=== PATIENT | female | born 1995 | race Asian ===

== ENCOUNTER → 2022-12-08 14:25 | Outpatient (BNVA) | payer OTHER, SELFPAY | PROVIDERS: Visit Provider Physician Assistant Surgical ==

== ENCOUNTER 2023-01-09 08:14 | Outpatient (REF) | payer OTHER, SELFPAY ==
--- NOTE | ~2023-01-09 | XR_ITS ---
EXAMINATION: XR CHEST CLINICAL INFORMATION: Morbid obesity COMPARISON: None available. TECHNIQUE: 2 views of the chest were obtained. FINDINGS: Lungs of low volume with mild vascular redistribution without nodules infiltrates or pleural effusion. Cardiomediastinal silhouette is normal. XR/XR chest 2V IMPRESSION: Low lung volume and vascularity distribution.
--- NOTE | 2023-01-09 12:09 | ECG_ITS ---
Test Reason : E66.01 Morbid Obesity Blood Pressure : / mmHG Vent. Rate : 089 BPM Atrial Rate : 089 BPM P-R Int : 170 ms QRS Dur : 080 ms QT Int : 358 ms P-R-T Axes : 050 037 000 degrees QTc Int : 435 ms Normal sinus rhythm Cannot rule out Anterior infarct , age undetermined Abnormal ECG No previous ECGs available Referred By: Melvina Mcclure Electronically Signed By:Eduar Randall
[2023-01-10 10:30] LABS: H Pylori Breath Test Negative (Negative)
== END 2023-01-09 08:15 | disposition home or self-care (01) ==
LOC: HO.XRAY 08:14
PROVIDERS: Visit Provider Physician Assistant
DX: Z01.818 Encounter for other preprocedural examination (principal); E66.01 Morbid (severe) obesity due to excess calories; E11.9 Type 2 diabetes mellitus without complications; D64.9 Anemia, unspecified
CPT/HCPCS: 36415; 71046; 83013; 93005; 99202; 99211

== ENCOUNTER 2023-01-09 08:14 | Outpatient (AMB) | payer OTHER, SELFPAY ==
--- NOTE | 2023-01-09 08:17 | A.OFFVIS_ITS ---
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 Álvarez been on Trulcity for about 8 months without weight loss. Her goal is to weigh around 130 lbs.. She reports first being concerned about her weight 2016 after of first child. She has tried multiple methods of weight loss including Future shaunna without permanent results. She lives with her 2 children and fiance. 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 BS fasting - 250. Checks qid - after meals 180 - 220. 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 She wakes at: 3am - back to bed 6am and gets up 7-8 am, bed at 8- 10 pm. Breakfast: 9am - 2 sausages OR 2 hb eggs, water Lunch: 1-3 pm - steamed vegetables, sometimes will have white rice with it - chicken or fish. water Dinner: 5-6 pm -steamed vegetables, fish or chicken and rice After dinner: nothing Other snacks: string cheese or yogurt - 12 pm Liquids: No soda or fruit juice, no sweetened drinks Alcohol intake:no ETOH, tobacco:none, marijuana: none Exercise: kid exercises after breakfast. Standing stepper and weighted hula hoop. Last mammogram: never, young Last pap smear: needs to schedule. control method: none, needs to have iron carrier visit GERRY:2 ESS:3 GERD:0 QOL:87 PFSH Surgical History (Updated 01/09/23 @ 08:31 by Scottie Cortés [facility]) No pertinent past surgical history Family History (Updated 12/08/22 @ 14:55 by Ai Dawson LPN) Mother Hyperchloremia Hypertension Cancer of pancreas Father Hyperchloremia Hypertension Social History (Updated 01/09/23 @ 08:32 by Scottie Cortés CMA) Alcohol intake: never Patient Tobacco Use Status: Never used Tobacco Physical Exam Vital Signs: Last Vital Signs Temp 98.7 F 01/09/23 08:18 Pulse 101 H 01/09/23 08:18 BP 142/92 H 01/09/23 08:18 Pulse Ox 98 01/09/23 08:18 Oxygen Delivery Method Room Air 01/09/23 08:18 BMI result Body Mass Index 43.7 Const General: cooperative, no acute distress and well developed Nutritional Appearance: obese Orientation/consciousness: patient oriented x3 HEENT Head: Yes normal to inspection Neck Neck: Yes normal visual inspection Thyroid: Thyroid normal Resp Effort & Inspection: normal respiratory effort Auscultation: clear to auscultation bilaterally Cardio Rate: regular rate Rhythm: regular rhythm Heart sounds: S1 normal heart sound present, S2 normal heart sound present and no murmurs GI Inspection: No distended and Yes obesity Palpation (GI): Soft to palpation, nontender and no guarding Skin General skin exam: no rashes or lesions noted and other (warm and dry) Wounds: no wounds Hair: normal Neuro General: patient oriented x3 Extrem General: Yes no pedal edema and Yes no calf tenderness Psych Attitude: cooperative Thought process: Normal thought process present Thought content: Normal thought content present Insight: Good insight present (Psych) Judgement: Good judgement present (Psych) Assessment & Plan Assessment & Plan (1) Morbid obesity: Code(s): E66.01 - Morbid (severe) obesity due to excess calories Plan: This is a 27 yo woman with morbid obesity and DM on Trulicity will start SWL program to prepare for bariatric surgery. Blood work, h pylori , CXR, ECG, Abd ULS and UGI have been ordered. She is being scheduled for RD and BH initial consultations. She will start SWL classes and watch at 3 classes before her next appt with Susan. DM - not controlled and can not get an endo appt until next year. I will monitor her blood glucose levels and treaat prn once diet stabilized. 1. Adequate sleep of 7-8 hours per night discussed 2. Healthy meal plan - stop snacks All meals/MR's need to take 20 minutes to complete 9 am - 30 gram shake 12 pm- bar or yogurt 3 pm - 30 gram shake 6 pm- dinner of 4 oz lean protein, 6 oz vegetable, no fruit for now Exercise - at least 5 d/week- combo of LS 2 mile and TBP videos The importance of avoiding and breast feeding for at least 18 months after bariatric surgery was discussed in the information session and was reinforced today. NEEDS MECHANICAL SYSTEMS CONTROL ENGINEER APPT AND CONTRACEPTION METHOD Pt will purchase body composition analyzer (recommended list given to patient) and weight herself weekly. Next appt with me in 3 weeks. Text me with any questions and weekly weights. Patient is morbidly obese and is not considered stable at this time.?I spent a total of 60 minutes reviewing/updating records, examining the patient and counseling the patient on weight management as detailed above. (2) Diabetes mellitus: Code(s): E11.9 - Type 2 diabetes mellitus without complications (3) Anemia: Code(s): D64.9 - Anemia, unspecified Orders: Orders Vitamin B12 and Folate Today D64.9 - Anemia, unspecified, E11.9 - Type 2 diabetes mellitus without complications, E66.01 - Morbid (severe) obesity due to excess calories, Z01.818 - Encounter for other preprocedural examination Comprehensive Met. Panel Today D64.9 - Anemia, unspecified, E11.9 - Type 2 diabetes mellitus without complications, E66.01 - Morbid (severe) obesity due to excess calories, Z01.818 - Encounter for other preprocedural examination C Reactive Protein Today D64.9 - Anemia, unspecified, E11.9 - Type 2 diabetes mellitus without complications, E66.01 - Morbid (severe) obesity due to excess calories, Z01.818 - Encounter for other preprocedural examination Ferritin Today D64.9 - Anemia, unspecified, E11.9 - Type 2 diabetes mellitus without complications, E66.01 - Morbid (severe) obesity due to excess calories, Z01.818 - Encounter for other preprocedural examination Hemoglobin A1c Today D64.9 - Anemia, unspecified, E11.9 - Type 2 diabetes mellitus without complications, E66.01 - Morbid (severe) obesity due to excess calories, Z01.818 - Encounter for other preprocedural examination Insulin Today D64.9 - Anemia, unspecified, E11.9 - Type 2 diabetes mellitus without complications, E66.01 - Morbid (severe) obesity due to excess calories, Z01.818 - Encounter for other preprocedural examination IRON PROFILE Today D64.9 - Anemia, unspecified, E11.9 - Type 2 diabetes mellitus without complications, E66.01 - Morbid (severe) obesity due to excess calories, Z01.818 - Encounter for other preprocedural examination Lipid Panel Today D64.9 - Anemia, unspecified, E11.9 - Type 2 diabetes mellitus without complications, E66.01 - Morbid (severe) obesity due to excess calories, Z01.818 - Encounter for other preprocedural examination PTHI Today D64.9 - Anemia, unspecified, E11.9 - Type 2 diabetes mellitus without complications, E66.01 - Morbid (severe) obesity due to excess calories, Z01.818 - Encounter for other preprocedural examination TSH reflex Free T4 Today D64.9 - Anemia, unspecified, E11.9 - Type 2 diabetes mellitus without complications, E66.01 - Morbid (severe) obesity due to excess calories, Z01.818 - Encounter for other preprocedural examination Vitamin A Today D64.9 - Anemia, unspecified, E11.9 - Type 2 diabetes mellitus without complications, E66.01 - Morbid (severe) obesity due to excess calories, Z01.818 - Encounter for other preprocedural examination Vitamin B1 Today D64.9 - Anemia, unspecified, E11.9 - Type 2 diabetes mellitus without complications, E66.01 - Morbid (severe) obesity due to excess calories, Z01.818 - Encounter for other preprocedural examination Vitamin D 25-OH Total Today D64.9 - Anemia, unspecified, E11.9 - Type 2 diabetes mellitus without complications, E66.01 - Morbid (severe) obesity due to excess calories, Z01.818 - Encounter for other preprocedural examination Zinc Today D64.9 - Anemia, unspecified, E11.9 - Type 2 diabetes mellitus without complications, E66.01 - Morbid (severe) obesity due to excess calories, Z01.818 - Encounter for other preprocedural examination ECG 12 lead EKG Today D64.9 - Anemia, unspecified, E11.9 - Type 2 diabetes mellitus without complications, E66.01 - Morbid (severe) obesity due to excess calories, Z01.818 - Encounter for other preprocedural examination FL upper GI w air Today D64.9 - Anemia, unspecified, E11.9 - Type 2 diabetes mellitus without complications, E66.01 - Morbid (severe) obesity due to excess calories, Z01.818 - Encounter for other preprocedural examination Complete Blood Count Auto Diff Today D64.9 - Anemia, unspecified, E11.9 - Type 2 diabetes mellitus without complications, E66.01 - Morbid (severe) obesity due to excess calories, Z01.818 - Encounter for other preprocedural examination H Pylori Breath Test Today D64.9 - Anemia, unspecified, E11.9 - Type 2 diabetes mellitus without complications, E66.01 - Morbid (severe) obesity due to excess calories, Z01.818 - Encounter for other preprocedural examination US abdomen comp w elastography Today D64.9 - Anemia, unspecified, E11.9 - Type 2 diabetes mellitus without complications, E66.01 - Morbid (severe) obesity due to excess calories, Z01.818 - Encounter for other preprocedural examination XR chest 2V Today D64.9 - Anemia, unspecified, E11.9 - Type 2 diabetes mellitus without complications, E66.01 - Morbid (severe) obesity due to excess calories, Z01.818 - Encounter for other preprocedural examination Referrals Behavioral Health Referral D64.9 - Anemia, unspecified, E11.9 - Type 2 diabetes mellitus without complications, E66.01 - Morbid (severe) obesity due to excess calories, Z01.818 - Encounter for other preprocedural examination Nutrition/Dietitian Referral D64.9 - Anemia, unspecified, E11.9 - Type 2 diabetes mellitus without complications, E66.01 - Morbid (severe) obesity due to excess calories, Z01.818 - Encounter for other preprocedural examination Coding Level of Care Code New Pt Level 5 (40437) Diagnoses Morbid obesity E66.01 Diabetes mellitus E11.9 Anemia D64.9
[2023-01-09 08:18] VITALS: BP 142/92; PULSE 101; TEMP 37.1; O2SAT 98; BMI 43.7
== END 2023-01-09 09:21 | disposition home or self-care (01) ==
PROVIDERS: Visit Provider Physician Assistant
DX: E66.01 Morbid (severe) obesity due to excess calories (principal); Z68.41 Body mass index [BMI] 40.0-44.9, adult; D64.9 Anemia, unspecified; E11.9 Type 2 diabetes mellitus without complications
CPT/HCPCS: 99205

== ENCOUNTER → 2023-01-09 12:09 | Outpatient (BNV) | payer OTHER, SELFPAY | PROVIDERS: Visit Provider Internal Medicine Cardiovascular Disease | DX: R94.31 Abnormal electrocardiogram [ECG] [EKG] (principal) | CPT/HCPCS: 93010 ==

== ENCOUNTER 2023-01-10 08:04 | Outpatient (REF) | payer OTHER, SELFPAY ==
[2023-01-10 08:32] LABS: MANUAL DIFF FLAG NO
[2023-01-10 09:04] LABS: Basophils Absolute Auto 0.1 X10*3/uL (0.0-0.2); Basophils Percent Auto 0.7 % (0-2); Eosinophils Absolute Auto 0.3 X10*3/uL (0.0-0.4); Eosinophils Percent Auto 3.7 % (0-4); Hematocrit 40.4 % (37.0-47.0); Hemoglobin 12.7 g/dl (12.0-16.0); Imm Gran Abs Auto 0.06 X10*3/uL (0.00-0.03); Imm Gran Pct Auto 0.9 % (0.0-0.4); Lymphocytes Absolute Auto 1.9 X10*3/uL (1.2-4.9); Lymphocytes Percent Auto 27.5 % (20-40); Mean Corpuscular HGB Conc 31.4 g/dl (31.0-35.0); Mean Corpuscular Hemoglobin 24.2 pg (27.0-33.0); Monocytes Absolute Auto 0.7 X10*3/uL (0.1-1.2); Monocytes Percent Auto 9.4 % (2-11); Neutrophils Percent Auto 57.8 % (45-73); Platelet Count 256 X10*3/uL (160-400); Red Blood Count 5.25 X10*6/uL (4.20-5.50); Red Cell Distribution Width 13.6 % (11.0-16.0); White Blood Count 6.9 X10*3/uL (4.8-10.8)
[2023-01-10 09:13] LABS: Estimated Average Glucose 232 mg/dL; Hemoglobin A1c % 9.7 %
[2023-01-10 12:06] LABS: Alanine Aminotransferase 82 U/L (0-31); Albumin Level 4.2 g/dL (3.5-5.0); Alkaline Phosphatase 52 U/L (39-117); Anion Gap 12 (12-20); Aspartate Amino Transferase 64 U/L (5-31); Blood Urea Nitrogen 13 mg/dL (9-16); C Reactive Protein 0.92 mg/dL (< or = 0.50); Calcium 9.5 mg/dL (8.4-10.2); Carbon Dioxide 26 mmol/L (22-29); Chloride 104 mmol/L (96-108); Cholesterol 126 mg/dL; Estimated Glomerular Filt Rate > 60; Glucose Random 253 mg/dL (60-115); HDL Cholesterol 25 mg/dL; Iron 115 mcg/dL (30-160); LDL Cholesterol Calculated 65 mg/dl; Percent Iron Saturation 37 % (15-50); Potassium 4.3 mmol/L (3.3-5.1); Sodium 138 mmol/L (135-145); Total Iron Binding Capacity 315 mcg/dL (228-428); Total Protein 8.6 g/dL (6.5-8.0); Triglycerides 180 mg/dL; Unsaturated Iron Binding 200 ug/dL
[2023-01-10 12:07] LABS: Ferritin 279 ng/mL (10-122); TSH reflex Free T4 1.05 uIU/mL (0.32-4.0); Vitamin D 25-OH Total 17.6 ng/mL (>30)
[2023-01-10 12:18] LABS: Folate 8.4 ng/mL (> or = 4.0); Vitamin B12 579 pg/mL (200-900)
[2023-01-10 13:29] LABS: Insulin 54 uU/mL (2-29)
[2023-01-13 13:59] LABS: Calcium (PTHI) 9.6 mg/dL (8.6-10.2); PTHI 20 pg/mL (16-77)
[2023-01-13 21:09] LABS: Zinc 73 mcg/dL (60-130)
[2023-01-15 16:48] LABS: Vitamin A 35 mcg/dL (38-98)
[2023-01-16 06:57] LABS: Vitamin B1 <6 nmol/L (8-30)
== END 2023-01-10 08:05 | disposition home or self-care (01) ==
LOC: HO.LAB 08:04
PROVIDERS: Visit Provider Physician Assistant
DX: Z01.818 Encounter for other preprocedural examination (principal); E66.01 Morbid (severe) obesity due to excess calories; E11.9 Type 2 diabetes mellitus without complications; D64.9 Anemia, unspecified
CPT/HCPCS: 36415; 80053; 80061; 82306; 82607; 82728; 82746; 83036; 83525; 83540; 83970; 84425; 84443; 84590; 84630; 85025; 86140

== ENCOUNTER 2023-01-27 08:51 | Outpatient (AMB) | payer OTHER, SELFPAY ==
--- NOTE | 2023-01-27 08:38 | A.OFFVIS_ITS ---
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 Has questions about plant proteins, answered today. Exercise: at home walking in place videos 3 miles SW online classes: 09/06 scored well Has a one and a half year old and a 6 year old adn wants to be a good role model for them Previous weight loss methods attempted Several attempts but would stall and have a hard time pushing through it. Dietary counseling reduction Who buys your food self Who prepares/cooks your food self Meal frequency regular: lunch and dinner (white rice, chicken pork - ) and never: snacks Lifestyle Eating out rarely or never Reads food labels Yes Food frequency Dairy: several times weekly (sometimes cheese ), Fruit: several times weekly, Vegetables: several times weekly, Grains/pasta/breads/cereal (carbs): daily, Meats/poultry/fish (protein): daily, Water: daily, Soda: occasionally, Juice: never and Coffee: occasionally Diagnosis Nutrition problem #1 overweight/obesity As related to (etiology) #1 excess energy intake and physical inactivity As evidenced by (sign/symptom) #1 high BMI Monitoring/Goals Nutrition problem monitoring total energy intake, level of knowledge/skill, total PRO intake, total CHO intake, weight and oral fluids Outcome progress progressing Learning/Education Readiness to learn excellent Stages of change action Educational materials provided Yes Most Recent Diabetes Results: Cholesterol 126 mg/dL 01/10/23 HDL Cholesterol 25 mg/dL 01/10/23 Triglycerides 180 mg/dL 01/10/23 Creatinine 0.71 mg/dL (0.5-1.4) 01/10/23 Blood Urea Nitrogen 13 mg/dL (9-16) 01/10/23 Sodium 138 mmol/L (135-145) 01/10/23 Potassium 4.3 mmol/L (3.3-5.1) 01/10/23 Chloride 104 mmol/L (96-108) 01/10/23 Carbon Dioxide 26 mmol/L (22-29) 01/10/23 Calcium 9.5 mg/dL (8.4-10.2) 01/10/23 AST 64 U/L (5-31) H 01/10/23 ALT 82 U/L (0-31) H 01/10/23 Total Protein 8.6 g/dL (6.5-8.0) H 01/10/23 Albumin 4.2 g/dL (3.5-5.0) 01/10/23 PFSH Surgical History (Updated 01/09/23 @ 08:31 by Scottie Cortés CMA) No pertinent past surgical history Family History (Updated 12/08/22 @ 14:55 by Ai Dawson LPN) Mother Hyperchloremia Hypertension Cancer of pancreas Father Hyperchloremia Hypertension Social History (Updated 01/09/23 @ 08:32 by Scottie Cortés CMA) Alcohol intake: never Patient Tobacco Use Status: Never used Tobacco Assessment & Plan Assessment & Plan (1) Diabetes mellitus: Code(s): E11.9 - Type 2 diabetes mellitus without complications (2) Morbid obesity: Code(s): E66.01 - Morbid (severe) obesity due to excess calories Patient Instructions: Patient is doing great so far, will likely be cleared. She will complete her online classes and follow-up with me 02/25 at 09:30am. Telehealth Telehealth Location of provider rendering services: practice address Location of patient: address on file Patient Identification confirmed using: Name, : Yes Telehealth method: video Patient verbally consented to treatment: Yes Patient verbally consented to billing insurance company: Yes Patient informed of any privacy concerns related to visit: Yes Minutes spent on Phone/Video with Pt.: 25 Coding Level of Care Code Nutr Indiv Intake (46599) Diagnoses Diabetes mellitus E11.9 Morbid obesity E66.01 Time Spent (min) 25
== END 2023-01-27 08:56 | disposition home or self-care (01) ==
LOC: HO.HBS 08:51
PROVIDERS: Visit Provider Dietitian, Registered
DX: E11.9 Type 2 diabetes mellitus without complications (principal); E66.01 Morbid (severe) obesity due to excess calories

== ENCOUNTER → 2023-01-27 08:51 | Outpatient (BNVA) | payer OTHER, SELFPAY | PROVIDERS: Visit Provider Dietitian, Registered | DX: E66.01 Morbid (severe) obesity due to excess calories (principal); E11.9 Type 2 diabetes mellitus without complications; Z71.3 Dietary counseling and surveillance | CPT/HCPCS: 97802 ==

== ENCOUNTER 2023-01-30 07:38 | Outpatient (REF) | payer OTHER, SELFPAY ==
--- NOTE | ~2023-01-30 | US_ITS ---
EXAMINATION: US COMPLETE ABDOMEN WITH LIVER ELASTOGRAPHY CLINICAL INFORMATION: Obesity. COMPARISON: None available. TECHNIQUE: Real-time imaging of the abdominal viscera. Noninvasive ultrasound liver fibrosis assessment is performed using Georgina ElastPQ point quantification shear wave elastography (2D-SWE) with a C5-2 MHz transducer. Multiple elastography samples are obtained. FINDINGS: PANCREAS: Normal. The visualized pancreatic head and body are normal in appearance. The remainder of the pancreas is obscured from visualization by the overlying bowel gas. ABDOMINAL AORTA: The proximal, middle, and distal aortic segments are normal in caliber. INFERIOR VENA CAVA: Visualized portions are normal. LIVER: There is hepatomegaly. The liver demonstrates normal contour and increased echogenicity. No focal lesion or intrahepatic biliary duct dilatation. The right lobe measures 19.2 cm in length. The left lobe measures 11.2 cm in length. Portal flow is towards the liver (hepatopetal). Shear wave liver elastography median stiffness is 1.30 m/s (reference: normal median stiffness is 1.3 m/s or less). IQR/median stiffness to assess sampling precision is 0.12 (reference: good quality data set is IQR/median stiffness of 0.15 or less). GALLBLADDER: Normal. The gallbladder is physiologically distended without evidence of stones, sludge, polyps, wall thickening or pericholecystic fluid. COMMON BILE DUCT: Normal in caliber measuring 0.3 cm in diameter. RIGHT KIDNEY: Normal. No hydronephrosis. No renal calculi or focal parenchymal lesions. The kidney measures 13.4 cm in maximum dimension. LEFT KIDNEY: Normal. No hydronephrosis. No renal calculi or focal parenchymal lesions. The kidney measures 13.2 cm in maximum dimension. SPLEEN: Normal. The spleen measures 13.3 cm in maximum dimension. FREE FLUID: None. US/US abdomen comp w elastography IMPRESSION: 1. There is hepatosplenomegaly. 2. There is generalized increase in hepatic echotexture, consistent with fatty infiltration or hepatocellular disease. Please correlate clinically. No focal hepatic mass or intrahepatic biliary dilatation is seen. 3. Liver elastography: Measurements are consistent with a high probability of normal liver stiffness. REFERENCE: Society of Radiologists in Ultrasound Liver Stiffness Thresholds (2020): LIVER STIFFNESS THRESHOLDS: *Liver Stiffness equal or less than 1.3 m/s: High probability of being normal. *Liver Stiffness less than 1.7 m/s: In the absence of other known clinical signs, rules out compensated advanced chronic liver disease. *Liver Stiffness 1.7-2.1 m/s: Suggestive of compensated advanced chronic liver disease but need further test for confirmation. *Liver Stiffness over 2.1 m/s: Rules in compensated advanced chronic liver disease. *Liver Stiffness over 2.4 m/s: Suggestive of clinically significant portal hypertension. QUALITY OF DATA SET: *IQR/Median value equal or less than 0.15 implies a quality data set. *IQR/Median value over 0.15 implies a poor quality data set. SIGNIFICANT CHANGE FROM PRIOR EXAM: Significant change if liver stiffness measurement is 10% or greater from prior exam. OTHER CONSIDERATIONS: The stage of liver fibrosis may be overestimated in the setting of acute hepatitis, liver inflammation, elevated liver function tests, hepatic vascular congestion, obstructive cholestasis, non-fasting state, and infiltrative diseases such as amyloidosis and lymphoma. In some patients with NAFLD, the liver stiffness thresholds for compensated advanced chronic liver disease may be lower. In causes other than viral hepatitis and NAFLD, liver stiffness thresholds are not well established.
== END 2023-01-30 07:39 | disposition home or self-care (01) ==
LOC: HO.US 07:38
PROVIDERS: Visit Provider Physician Assistant
DX: Z01.818 Encounter for other preprocedural examination (principal); E66.01 Morbid (severe) obesity due to excess calories; E11.9 Type 2 diabetes mellitus without complications; D64.9 Anemia, unspecified
CPT/HCPCS: 76705; 76981

== ENCOUNTER 2023-02-03 09:13 | Outpatient (AMB) | payer OTHER, SELFPAY ==
--- NOTE | 2023-02-03 09:08 | MHC.WMTHER ---
Intake Intake Visit Reasons: VIDEO BH Intake Allergies No Known Allergies Allergy (Verified 01/09/23 08:31) [facility] Surgical History (Updated 01/09/23 @ 08:31 by Scottie Cortés CMA) No pertinent past surgical history Family History (Updated 12/08/22 @ 14:55 by Ai Dawson LPN) Mother Hyperchloremia Hypertension Cancer of pancreas Father Hyperchloremia Hypertension Social History (Updated 01/09/23 @ 08:32 by Scottie Cortés [employer]) Alcohol intake: never Patient Tobacco Use Status: Never used Tobacco Behavioral Health Assessment Weight Management Therapy Therapy Notes Details Pt is looking to have weight loss surgery to help improve her health and quality of life. She has many health problems that run in the family. She also developed diabetes while and after. Pt denied any mental health issues or history of treatment including outpatient therapy. She has no history of problems with drugs or alcohol. Presenting Concerns Referral Source provider Reason for referral weight loss surgery evaluation Precipitating Event obesity Living Situation Current Living Situation Rent At risk of losing current housing? No Satisfied with current living situation? Yes Comments Patient lives with her two children and fiance. Children are 1.5 and 7 years old. Food/Weight/Diet Expectations of change weight loss and maintenance History/Relationship with food Patient grew up traditionally family meals from her culture, vegetables, rice, herbs, protein and never ate out. When she moved out form her parents home at age 19, she started eating fast food and other convenience foods that she never had been exposed to in the past. She reported that she was eating emotionally and at times would binge once or twice a month. Also would often skip meals and snack on granola and drink red bull energy drinks. History/Relationship with weight Patient reported that she had gestation diabetes with her first child 7 years ago and then later developed diabetes. At her heaviest she was 255lbs. When she started high school she was around 120lbs and was often told by family she was fat . She reported this affected her mentally. History/Relationship with dieting diet and exercise, she would loose some weight and then get stuck . Binge Eating Do you frequently eat large amounts of food in short periods of time, not feeling physically hungry? Yes Do you feel out of control when you eat a large amount of food in a short period of time? No Do you eat large amounts of food rapidly and typically alone? Yes Night Eating Do you wake up at least once during the night to eat? No If you wake up in the night, do you find that it is necessary to eat something in order to fall back asleep? No Do you have little or no appetite in the morning and feel very hungry in the evening, often overeating between dinner and when you go to bed? Yes Social History Family history and relationship Pt was born in [place] and raised in [place], [place] by both parents and two siblings, one sister and one brother. She has a 7 year old from previous rel. and one year old with her jill?. 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 Developmental history and status no issues known or reported Social support sister, jagdeep. son Cultural/Ethnic information Half Danny and half Portuguese Legal Involvement and History Current or historical involvement with the legal system? none Education Highest grade completed high school Preferred learning style Auditory, Verbal, Written, Learn by doing and Visual Currently enrolled in educational program? No Interested in further educational program? 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 Employment Employment Status Other Wants help to find employment? No Meaningful activities Crocheting, reading Financial Situation Describe current financial situation Comfortable Financial assistance? None Service Service? No Mental Health and Addiction Treatment Current/Past substance abuse? No Current/Past addictive behavior concerns? No Medical and Physical Health Summary Physical exam in the last year? Yes Pain Screening Current pain? No Pain in the last few months? No Medications Is the patient compliant with medications? Yes Does the patient have Montes Guardian in place? Not applicable Does the patient use complimentary health approaches? No Questionnaires PHQ-9 Over the last 2 weeks, how often have you been bothered by any of the following problems? 1. Little interest or pleasure in doing things: not at all 2. Feeling down, depressed, or hopeless: several days 3. Trouble falling or staying asleep, or sleeping too much: not at all 4. Feeling tired or having little energy: more than half the days 5. Poor appetite or overeating: more than half the days 6. Feeling bad about yourself - or that you are a failure or have let yourself or your family down: more than half the days 7. Trouble concentrating on things, such as reading the newspaper or watching television: not at all 8. Moving or speaking so slowly that other people could have noticed. Or the opposite - being so fidgety or restless that you have been moving around a lot more than usual: not at all 9. Thoughts that you would be better off or of hurting yourself in some way: not at all Total score: 7 Source: Developed by Drs. Andrew Carrillo, Sherri Simental, Benjamin Britton and colleagues, with an educational evangelista from [employer]. Binge Eating Scale Group 1 A. I don't feel self-conscious about my wt. or body size when I'm with others. B. I feel concerned about how I look to others, but it normally does not make me fell disappointed with myself C. I do get self-conscious about my appearance and wt. which makes me feel disappointed in myself. D. I feel very self-conscious about my wt. and frequently I feel intense shame and disgust for myself. I try to avoid social contacts because of my self-consciousness. Response Group 1: D Group 2 A. I don't have any difficulty eating slowly in the proper manner. B. Although I seem to gobble down foods, I don't end up feeling stuffed because of eating to much. C. At times, I tend to eat quickly and then, I feel uncomfortably full afterwards. D. I have the habit of bolting down my food, without really chewing it. When this happens I usually feel uncomfortably stuffed because I've eaten to much. Response Group 2: C Group 3 A. I feel capable to control my eating urges when I want to. B. I feel like I have failed to control my eating more than the average person. C. I feel utterly helpless when it comes to feeling in control of my eating urges. D. Because I feel so helpless about controlling my eating I have become very desperate about trying to get control. Response Group 3: A Group 4 A. I don't have the habit of eating when I'm bored. B. I sometimes eat when I'm bored, but often I'm able to get busy and get my mind off food. C. I have a regular habit of eating when I'm bored, but occasionally, I can use some other activity to get my mind off eating. D. I have a strong habit of eating when I'm bored. Nothing seems to help me breath the habit. Response Group 4: A Group 5 A. I'm usually physically hungry when I eat something. B. Occasionally, I eat something on impulse even though I really am not hungry. C. I have the regular habit of eating foods, that I might not really enjoy, to satisfy a hungry feeling even though physically, I don't need the food. D. Although I'm not physically hungry, I get a hungry feeling in my mouth that only seems to be satisfied when I eat a food, like sandwich, that fills my mouth. Sometimes, when I eat the food to satisfy my mouth hunger, I then spit the food out so I won't gain weight. Response Group 5: B Group 6 A. I don't feel any guilt or self-hate after I overeat. B. After I overeat, occasionally I feel guilt or self-hate. C. Almost all the time I experience strong guilt or self-hate after I overeat. Response Group 6: B Group 7 A. I don't lose total control of my eating when dieting even after periods when I overeat. B. Sometimes when I eat a forbidden food on a diet, I feel like I blew it and eat even more. C. Frequently, I have the habit of saying to myself, I've blown it now, why not go all the way, when I overeat on a diet. When that happens I eat more. D. I have a regular habit of starting a strict diets for myself but I break the diets by going on an eating binge. My life seems to be either a feast or famine. Response Group 7: B Group 8 A. I rarely eat so much food that I feel uncomfortably stuffed afterwards. B. Usually about once a month, I each such a quantity of food, I end up feeling very stuffed. C. I have regular periods during the month when I eat large amounts of food, either at mealtime or at snacks. D. I eat so much food that I regularly feel quite uncomfortable after eating and sometimes a bit nauseous. Response Group 8: B Group 9 A. My level of calorie intake does not go up very high or go down very low on a regular basis. B. Sometimes after I overeat, I will try to reduce my caloric intake to almost nothing to compensate for the excess calories I've eaten. C. I have a regular habit of overeating during the night. It seems that my routine is not to be hungry in the morning but overeat in the evening. D. In my adult years, I have had week-long periods where I practically starve myself. This follows periods when I overeat. It seems I live a life of either feast or famine. Response Group 9: C Group 10 A. I usually am able to stop eating when I want to. I know when enough is enough. B. Every so often, I experience a compulsion to eat which I can't seem to control. C. Frequently, I experience strong urges to eat which I seem unable to control, but at other times I can control my eating urges. D. I feel incapable of controlling urges to eat. I have a fear of not being able to stop eating voluntarily. Response Group 10: B Group 11 A. I don't have any problem stopping eating when I feel full. B. I usually can stop eating when I feel full but occasionally overeat leaving me feeling uncomfortably stuffed. C. I have a problem stopping eating once I start and usually I feel uncomfortably stuffed after I eat a meal. D. Because I have a problem not being able to stop eating when I want, I sometimes have to induce vomiting to relieve my stuffed feeling. Response Group 11: A Group 12 A. I seem to eat just as much when I'm with others, Family social gatherings as when I'm by myself. B. Sometimes, when I'm with other persons, I don't eat as much as I want to eat because I'm self-conscious about my eating. C. Frequently, I eat only a small amount of food when others are present, because I'm very embarrassed about my eating. D. I feel so ashamed about overeating that I pick times to overeat when I know no one will see me. I feel like a closet eater. Response Group 12: C Group 13 A. I eat three meals a day with only an occasional between meal snack. B. I eat 3 meals a day, but I also normally snack between meals. C. When I am snacking heavily, I get in the habit of skipping regular meals. D. There are regular periods when I seem to be continually eating, with no planned meals. Response Group 13: A Group 14 A. I don't think much about trying to control unwanted eating urges. B. At least some of the time, I feel my thoughts are pre-occupied with trying to control my eating urges. C. I feel that frequently I spend much time thinking about how much I ate or about trying not to eat anymore. D. It seems to me that most of my waking hours are pre-occupied by thoughts about eating or not eating. I feel like I'm constantly struggling not to eat. Response Group 14: C Group 15 A. I don't think about food a great deal. B. I have strong craving for food but they last only for brief periods of time. C. I have days when I can't seem to think about anything else but food. D. Most of my days seem to be pre-occupied with thoughts about food. I feel like I live to eat. Response Group 15: B Group 16 A. I usually know whether or not I'm physically hungry. I take the right portion of food to satisfy me. B. Occasionally, I feel uncertain about knowing whether or not I'm physically hungry. A these times it's hard to know how much food I should take to satisfy me. C. Even though I might know how many calories I should eat, I don't have any idea what is a normal amount of food for me. Response Group 16: A Binge Eating Score: 17 Score less than 17 Minimal Risk Score between 18-26 Moderate Risk Score between 27-46 High Risk Assessment & Plan Assessment & Plan (1) Adjustment disorder with depressed mood: Code(s): F43.21 - Adjustment disorder with depressed mood (2) Morbid obesity: Code(s): E66.01 - Morbid (severe) obesity due to excess calories (3) Diabetes mellitus: Code(s): E11.9 - Type 2 diabetes mellitus without complications Plan Patient does not have any serious mental health barriers. She is cleared for surgery when ready. Telehealth Telehealth Location of provider rendering services: other Location of patient: address on file Patient Identification confirmed using: Name, : Yes Telehealth method: video Patient verbally consented to treatment: Yes Patient verbally consented to billing insurance company: Yes Patient informed of any privacy concerns related to visit: Yes Minutes spent on Phone/Video with Pt.: 45 Coding Level of Care Code Tele Psy Diag Eval (12406) Diagnoses Adjustment disorder with depressed mood F43.21 Morbid obesity E66.01 Diabetes mellitus E11.9 Time Spent (min) 45
== END 2023-02-03 09:43 | disposition home or self-care (01) ==
PROVIDERS: Visit Provider Counselor Mental Health
DX: F43.21 Adjustment disorder with depressed mood (principal); E66.01 Morbid (severe) obesity due to excess calories; E11.9 Type 2 diabetes mellitus without complications
CPT/HCPCS: 90791

== ENCOUNTER → 2023-02-03 09:13 | Outpatient (BNVA) | payer OTHER, SELFPAY | PROVIDERS: Visit Provider Counselor Mental Health ==

== ENCOUNTER → 2023-02-12 09:30 | Outpatient (REF) | payer OTHER, SELFPAY ==
--- NOTE | ~2023-02-12 | NM_ITS ---
EXERCISE MYOCARDIAL PERFUSION STUDY INDICATION: Abnormal EKG, assess for coronary disease and ischemia TECHNIQUE: The patient was brought in for an exercise perfusion study on 02/14/2023. Patient performed exercise as per Job protocol and was injected 35 mCi of sestamibi once target heart rate was achieved. Images were obtained using the SPECT gamma camera interlaced with the gating device. Images were obtained in supine position. Resting perfusion study was performed on 02/16/2023. Patient was administered 35 mCi of sestamibi intravenously at rest. Images were then obtained in supine position. Images were processed with the software and compared side to side in short axis, horizontal long axis and vertical long axis views. Total DLP 164mGy-cm. FINDINGS: Raw images were reviewed. The stress perfusion study showed no significant perfusion defects. Both uncorrected as well as CT attenuation corrected images were reviewed. The gated study shows normal LV systolic function with calculated LVEF of 72%. LV cavity is normal in size. The gated study shows normal wall thickening and contraction of segments. Resting study shows diminished tracer uptake in the distal part of anterior wall, adjacent apex. Overall, perfusion is worse compared to the stress acquisition and hence likely all artifactual. No major change with CT attenuation correction. Gating at rest reveals normal wall motion with ejection fraction at 57%. The findings are consistent with no clear reversible or fixed perfusion defects. NM/NM cardiolite stress test IMPRESSION: 1. Myocardial perfusion imaging study shows likely normal myocardial perfusion. 2. Gated LVEF is 67% during stress and 57% during rest. 3. Transient ischemic dilatation not present. EKG component of the test reported separately.
--- NOTE | 2023-02-12 09:35 | CA_ITS ---
Transthoracic Echocardiogram Patient (Last, First, Middle): Chata Calloway, Gender: Female Date of : 1995 Age: 27 Procedure Date: 02/12/2023 Procedure Type: Transthoracic Echocardiogram Location: OP Height: 154.94 cm Weight: 97.07 kg BSA: 1.94 m2 Heart Rate: 89 bpm BP: 135 / 80 mmHg Web Operations Manager: CHELE Referring MD: Melvina Mcclure PA-C Symptoms: R94.31 - Abnormal electrocardiogram [ECG] [EKG] Study Quality: Fair/Contrast ECG Rhythm: Sinus Conclusions: - The left ventricular systolic function is normal. The calculated ejection fraction is 64% by biplane method. - No obvious valvular pathology seen on this study. Findings Procedure Information Contrast agent, definity, is being given per protocol without apparent complications. Left Ventricle Normal left ventricular cavity size. There is mildly increased left ventricular wall thickness. The left ventricular systolic function is normal. The calculated ejection fraction is 64% by biplane method. There is no evidence of regional wall motion abnormalities. Diastolic function is normal for age. Right Ventricle Normal right ventricular cavity size and systolic function. Atria Both atria are normal in size. Aortic Valve There is a normal trileaflet aortic valve. There is no aortic valve stenosis. There is no aortic valve regurgitation. Mitral Valve The mitral valve appears normal. There is trace mitral valve regurgitation. There is no mitral valve stenosis. Pulmonic Valve The pulmonic valve is likely normal. Tricuspid Valve Normal tricuspid valve structure. There is trace tricuspid valve regurgitation. There is no evidence of pulmonary hypertension. Great Vessels The asc aorta is normal in size. Venous The inferior vena cava is normal in size and collapses greater than 50% with inspiration. Pericardium/Pleural There is no evidence of pericardial effusion. Prior Study Comparison No prior study available for comparison. Recommendations, Care & Conclusions No obvious valvular pathology seen on this study. Measurements 2D Linear Measurements IVSd: 1.26 0.6-0.9/0.6-1.0 cm LVIDd: 4.41 3.9-5.3/4.2-5.9 cm LVIDd Index: 2.27 2.4-3.2/2.2-3.1 cm/m2 LVIDs: 2.55 2.0-3.6 cm LVPWd: 1.10 0.7-1.1 cm LA Diam: 3.40 2.7-3.8/3.0-4.0 cm LAIDs Index: 1.75 1.5-2.3 cm/m2 LV Mass: 233.50 67-162/88-224 g LV Mass Index: 120.36 43-95/49-115 g/m2 LVOT Diam: 2.30 3.0+(-)1.3 cm 2D Systolic Function EF 4C: 60.20 >55% EF 2C: 66.80 >55% EF BiP: 64.00 >55% Mitral Valve MV Pk E: 0.82 MV PK A: 0.80 MV Decel Time: 189.00 E/A: 1.00 E'Lateral: 9.36 E'Medial: 9.14 E/E' Med: 9.00 E/E' Lat: 8.80 PHT: 55.00 MVA PHT: 4.00 Decel Dyer: 4.35 Aortic Valve AoV Pk Nicolas: 1.24 AoV Mn Nicolas: 0.92 AoV VTI: 0.23 AoV Pk Grad: 6.00 Aov Mn Grad: 4.00 GEOVANNY Cont.VTI: 3.27 LVOT LVOT Pk Nicolas: 0.97 LVOT Mn Nicolas: 0.69 LVOT VTI: 0.18 LVOT Pk Grad: 4.00 LVOT Mn Grad: 2.00 LVOT Diam: 2.30 LVOT Area: 4.15 Diastolic Function MV Pk E: 0.82 MV Pk A: 0.80 E/A: 1.00 E'Medial: 9.14 E/E' Med: 9.00 E' Laterial: 9.36 E/E' Lat: 8.80 Right Ventricle TAPSE (mm): 19.30 TVS' Nicolas: 12.20 Tricuspid Valve RA Press: 3.00 Great Vessels Aorta Sinus of Valsalva: 3.40 2.0-3.5 cm Ao Asc: 3.50 2.1-3.4 cm Pulmonary Valve PV Pk Nicolas: 0.91 Peak PV Grad: 3.00 Updated in Other Vendor System with Status of Final Xavier More MD electronically signed on 02/12/2023 3:39:07 PM with status of Final
--- NOTE | 2023-02-12 09:35 | CA_ITS ---
Acquisition Time: 2023-02-12 10:21:43 Total Exercise Time: 00:07:49 Test Indications: ABNORMAL EKG Medications: Protocol: WANG Max HR: 181 BPM 93% of Pred: 194 BPM Max BP: 150/078 mmHG Max Work Load: 9.8 METS Exercise stress test exercise 7 min 49 sec of Wang protocol achieving 93% MPHR, 90-120 at rest, 137bpm by 1 min, without anginal symptoms, without arrhythmiasm with normotensive response to exericse, without EKG changes. Nuclear images pending, Test reviewed with Dr. Whitney. Referred By: Melvina Mcclure Overread By: BEBETO WHITNEY
== END ==
LOC: HO.CARD 09:30
PROVIDERS: Visit Provider Physician Assistant
DX: R94.31 Abnormal electrocardiogram [ECG] [EKG] (principal); E66.01 Morbid (severe) obesity due to excess calories; E11.9 Type 2 diabetes mellitus without complications; D64.9 Anemia, unspecified
CPT/HCPCS: 78452; 93017; 93306; A9500; Q9957

== ENCOUNTER → 2023-02-12 09:35 | Outpatient (BNV) | payer OTHER, SELFPAY | PROVIDERS: Visit Provider Internal Medicine | DX: R94.31 Abnormal electrocardiogram [ECG] [EKG] (principal) | CPT/HCPCS: 78452; 93016; 93018; 93306 ==

== ENCOUNTER 2023-02-25 09:44 | Outpatient (AMB) | payer OTHER, SELFPAY ==
--- NOTE | 2023-02-25 09:36 | A.OFFVIS_ITS ---
Intake VS Expanded 02/25/23 09:40 Height 5 ft 1 in Weight 211 lb BMI 39.9 Intake Visit Reasons: VIDEO F/U [facility] Weather Observer Required: No Allergies No Known Allergies Allergy (Verified 01/09/23 08:31) HPI Nutrition Presentation Details [employer] weight 237# current weight 211# Reason for consult elevated BMI Diet Assmnt Details 2 Slimfast HP shakes, 1 Atkins bar (read labels and matched macros to paper) dinner : (always steamed) 6oz cabbage, mushrooms and bok chris and 4oz protein has a food scale. Has questions about vitamins post op admits to eating a few bites of things I shouldn't - we talked about long-term weight management and how balance looks different for everyone, be mindful of food triggers Exercise: 5-6 miles daily walking outside 8am [facility] online classes: completed and scored well Has a one and a half year old and a 6 year old adn wants to be a good role model for them Previous weight loss methods attempted Several attempts but would stall and have a hard time pushing through it. Dietary counseling reduction Diagnosis Nutrition problem #1 overweight/obesity As related to (etiology) #1 excess energy intake and physical inactivity As evidenced by (sign/symptom) #1 high BMI Monitoring/Goals Nutrition problem monitoring total energy intake, level of knowledge/skill, total PRO intake, total CHO intake, weight and oral fluids Outcome progress progressing Learning/Education Readiness to learn excellent Stages of change action Educational materials provided Yes Most Recent Diabetes Results: Cholesterol 126 mg/dL 01/10/23 HDL Cholesterol 25 mg/dL 01/10/23 Triglycerides 180 mg/dL 01/10/23 Creatinine 0.71 mg/dL (0.5-1.4) 01/10/23 Blood Urea Nitrogen 13 mg/dL (9-16) 01/10/23 Sodium 138 mmol/L (135-145) 01/10/23 Potassium 4.3 mmol/L (3.3-5.1) 01/10/23 Chloride 104 mmol/L (96-108) 01/10/23 Carbon Dioxide 26 mmol/L (22-29) 01/10/23 Calcium 9.5 mg/dL (8.4-10.2) 01/10/23 AST 64 U/L (5-31) H 01/10/23 ALT 82 U/L (0-31) H 01/10/23 Total Protein 8.6 g/dL (6.5-8.0) H 01/10/23 Albumin 4.2 g/dL (3.5-5.0) 01/10/23 PFSH Surgical History (Updated 01/09/23 @ 08:31 by Scottie Cortés CMA) No pertinent past surgical history Family History (Updated 12/08/22 @ 14:55 by Ai Dawson LPN) Mother Hyperchloremia Hypertension Cancer of pancreas Father Hyperchloremia Hypertension Social History (Updated 01/09/23 @ 08:32 by Scottie Cortés CMA) Alcohol intake: never Patient Tobacco Use Status: Never used Tobacco Assessment & Plan Assessment & Plan (1) Morbid obesity: Code(s): E66.01 - Morbid (severe) obesity due to excess calories Patient Instructions: Patient is cleared from a nutrition standpoint for bariatric surgery. Educational requirements have been completed. Reviewed vitamin supplementation and commitment to protein shake for several months post surgery. Encouraged communication with office as needed Telehealth Telehealth Location of provider rendering services: practice address Location of patient: address on file Patient Identification confirmed using: Name, : Yes Telehealth method: video Patient verbally consented to treatment: Yes Patient verbally consented to billing insurance company: Yes Patient informed of any privacy concerns related to visit: Yes Minutes spent on Phone/Video with Pt.: 20 Coding Level of Care Code Nutr Indiv Subseq ([id number]) Diagnoses Morbid obesity E66.01 Time Spent (min) 20
[2023-02-25 09:40] VITALS: BMI 39.9
--- OUTSIDE RECORDS SUMMARY | 2023-02-25 09:46 | XMS_ITS | Continuity of Care Document ---
Author Name Unknown Organization [facility] LAB AIDE Oncolog y Address [address] [place] [phone]- Care Team Providers Care Steam Hammer Operator Name Role Phone Not on Staff, PCP Primary Care Physician Unavail able [place] [facility] [facility] [place] 08/19/21 - 09/18/21 [facility] LAB AIDE Oncology [address] [place] [phone]- Allergies, Adverse Reactions, Alerts No Known Allergies Immunizations Given and Recorded Vaccine Date Status Refusal Reason Measles/Mumps/Rubella Virus Vaccine 1 08/21/21 Giv en tetanus/diphtheria/pertussis, acel(Tdap) 07/24/15 Given influenza virus vaccine, inactivated 04/03/15 Give n 1Result Comment: administered subcutaneous to right posterior arm Medications Alcohol Pads See Instructions, # 1 pack/packet, Maintenance, to use with insulin administartion once daily 1PKT=1 box 100, 03/12/21 14:24:00 EDT, Supply, 156, cm, 02/12/21 11:45:00 EDT, Height, 99, kg, 02/12/21 11:20:00 EDT, Dry Weight Start Date: 03/12/21 Status: Ordered FREESTYLE 28G LANCETS FREESTYLE 28G LANCETS, 0 Refills, Maintenance, 08/06/18 9:11:11 EST Start Date: 08/06/18 Status: Ordered Freestyle Lite Lancets See Instructions, # 1 pack/packet, Refills 5, Tot. Refills 5, Maintenance, 1 pack = 100 lancets Blood sugar testing four times a day., 04/02/21 13:55:00 EDT, Supply, 156, cm, 02/12/21 11:45:00 EDT, Height, 99, kg, 02/12/21 11:20:00 EDT, Dry Weight Start Date: 04/02/21 Status: Ordered FREESTYLE LITE METER FREESTYLE LITE METER, 0 Refills, Maintenance, 08/06/18 9:11:14 EST Start Date: 08/06/18 Status: Ordered Freestyle Lite Monitor See Instructions, # 1 kit, Refills 0, Tot. Refills 0, Maintenance, Blood sugar testing four times aday, 04/02/21 13:55:00 EDT, Supply, 156, cm, 02/12/21 11:45:00 EDT, Height, 99, kg, 02/12/21 11:20:00 EDT, Dry Weight Start Date: 04/02/21 Status: Ordered FREESTYLE LITE TEST STRIP FREESTYLE LITE TEST STRIP, 0 Refills, Maintenance, 08/06/18 9:11:17 EST Start Date: 08/06/18 Status: Ordered Freestyle Lite Test Strips See Instructions, # 1 pack/packet, Refills 5, Tot. Refills 5, Maintenance, 1 pack = 100 test stripsblood sugar testing four times a day., 04/02/21 13:55:00 EDT, Supply, 156, cm, 02/12/21 11:45:00 EDT, Height, 99, kg, 02/12/21 11:20:00 EDT, Dry Weight Start Date: 04/02/21 Status: Ordered Pen [place], 31 G x 5 mm BD Ultra Fine III See Instructions, # 120 each, Refills 3, Tot. Refills 3, Maintenance, to use with insulin administration 4 times /day, 03/19/21 12:18:00 EDT, Supply, 156, cm, 02/12/21 11:45:00 EDT, Height, 99, kg, 02/12/21 11:20:00 EDT, Dry Weight Start Date: 03/19/21 Status: Ordered Problem List Condition Effective Dates Status Health Status Inform ant Anemia(Confirmed) Active Severe obesity(Confirmed) Active Type 2 diabetes mellitus(Confirmed) Active
--- OUTSIDE RECORDS SUMMARY | 2023-02-25 09:46 | XMS_ITS | Continuity of Care Document ---
Author Name Unknown Organization [facility] Address [address] [place] [address]- Care Team Providers Care Near Eastern Archaeology Lecturer Name Role Phone Not on Staff, PCP Primary Care Physician Unavail able Encounter [facility] Date(s): 12/09/21 - 01/08/22 [facility] [address] [place] [address]- Allergies, Adverse Reactions, Alerts No Known Allergies [...] Weight Start Date: 04/02/21 Status: Ordered Pen [place], 31 G x 5 mm BD Ultra [...]
--- OUTSIDE RECORDS SUMMARY | 2023-02-25 09:46 | XMS_ITS | Continuity of Care Document ---
Author Name Unknown Organization [facility] Address [address] [place] [address]- Care Team Providers Care Textile Knitter Name Role Phone Chaz Leslie MD Primary Care Physician Encounter [facility] [place] Date(s): 03/20/21 - 04/19/21 [facility]aternal Medicine [address] [place] [id number] Allergies, Adverse Reactions, Alerts Substance Reaction Severity Status NKA Active Immunizations Given and Recorded Vaccine Date Status Refusal Reason tetanus/diphtheria/pertussis, acel(Tdap) 07/24/15 Given influenza virus vaccine, inactivated 04/03/15 Give n Medications Alcohol Pads See Instructions, # 1 [...] Dry Weight Start Date: 04/02/21 Status: Ordered Humalog Kwik Pen 100 units/mL subcutaneous injection See Instructions, 26 units with breakfast 30 units with lunch 30 ux with dinner, # 15 mL, 5 Refills, Maintenance, 03/19/21 12:17:00 EDT, [id number], Partial fill upon patient request if the prescription is for a schedule II opioid drug., 156... Start Date: 03/19/21 Status: Ordered Lantus Solostar Pen 100 units/mL subcutaneous solution = 70 units, Subcutaneous Injection, Daily at bedtime, # 15 mL, 5 Refills, Maintenance, 04/12/21 10:08:00 EST, [id number], Partial fill upon patient request if the prescription is for a schedule II opioid drug., 156, cm, 02/12/21 11:45:00 EDT,... Start Date: 04/12/21 Status: Ordered Pen [place], 31 G x 5 mm BD Ultra Fine III See Instructions, # 120 each, Refills 3, Tot. Refills 3, Maintenance, to use with insulin administration 4 times /day, 03/19/21 12:18:00 EDT, Supply, 156, cm, 02/12/21 11:45:00 EDT, Height, 99, kg, 02/12/21 11:20:00 EDT, Dry Weight Start Date: 03/19/21 Status: Ordered Problem List Condition Effective Dates Status Health Status Inform ant Anemia(Confirmed) Active Type 2 diabetes mellitus(Confirmed) Active
--- OUTSIDE RECORDS SUMMARY | 2023-02-25 09:46 | XMS_ITS | Continuity of Care Document ---
Author Name Unknown Organization [facility] Address [address] [place] [address]- Care Team Providers Care Dehydration Unit Operator Name Role Phone Rich BLOCK, July E Primary Care Physician [place] [facility] [place]s): 04/15/21 - 05/15/21 [facility]aternal Medicine [address] [place] [address]- Allergies, Adverse Reactions, Alerts Substance Reaction Severity [...] injection See Instructions, 26 units with breakfast 36 units with lunch 36 units with dinner, # 15 mL, 5 Refills, Maintenance, 05/14/21 14:04:00 EST, [id number], Partial fill upon patient request if the prescription is for a schedule II opioid drug.,... Start Date: 05/14/21 Status: Ordered Lantus Solostar Pen 100 units/mL subcutaneous solution = 80 units, Subcutaneous Injection, Daily at bedtime, # 15 mL, 5 Refills, Maintenance, 04/12/21 10:08:00 EST, [id number], Partial fill upon patient request if the prescription is for a schedule II opioid drug., 156, cm, 02/12/21 11:45:00 EDT,... Start Date: 04/12/21 Status: Ordered Pen [place], 31 G x 5 mm BD Ultra [...]
--- OUTSIDE RECORDS SUMMARY | 2023-02-25 09:46 | XMS_ITS | Continuity of Care Document ---
Author Name Unknown Organization [facility] Address [address] [place] [address]- Care Team Providers Care Polytechnic Registrar Name Role Phone Anuj BLOCK, Chaz Primary Care Physician Encounter [facility] Date(s): 07/12/21 - 08/11/21 Maternal Medicine [address] [place] [id number] Allergies, Adverse Reactions, Alerts No Known Allergies [...] 36 units with lunch 36 units with dinner FILL 90 DAY SUPPLY, # 45 mL, 1 Refills, Maintenance, 07/03/21 16:11:00 EST, [id number], Partial fill upon patient request if the prescription is for a schedu... Start Date: 07/03/21 Status: Ordered Lantus Solostar Pen 100 units/mL subcutaneous solution See Instructions, 38 units in the a.m. and 114 units in the p.m. Subcutaneous Injection Daily, # 30mL, 5 Refills, Maintenance, 07/09/21 11:34:00 EST, [id number], Partial fill upon patient request if the prescription is for a schedule II opio... Start Date: 07/09/21 Status: Ordered Pen [place], 31 G x 5 mm BD Ultra [...]
--- OUTSIDE RECORDS SUMMARY | 2023-02-25 09:46 | XMS_ITS | Continuity of Care Document ---
Author Name Unknown Organization [facility] Address [address] [place] [address]- Care Team Providers Care Preschool Education Director Name Role Phone Chaz Leslie MD Primary Care Physician [place] [facility] [place](s): 06/10/21 - 07/10/21 Maternal Medicine [address] [place] [id number] Allergies, Adverse Reactions, Alerts No Known [...] Pen 100 units/mL subcutaneous solution See Instructions, 20 units in the a.m. and 90 units in the p.m. Subcutaneous Injection Daily, # 30 mL, 5 Refills, Maintenance, 07/09/21 11:34:00 EST, [id number], Partial fill upon patient request if the prescription is for a schedule II opioi... Start Date: 07/09/21 Status: Ordered Pen [place], 31 G x 5 mm BD Ultra [...]
--- OUTSIDE RECORDS SUMMARY | 2023-02-25 09:46 | XMS_ITS | Continuity of Care Document ---
Author Name Unknown Organization [facility] Address [address] [place] [address]- Care Team Providers Care Dance Director Name Role Phone Chaz Leslie MD Primary Care Physician [phone] Encounter [facility] [place] Date(s): 06/03/21 - 07/03/21 Maternal Medicine [address] [place] [phone] Allergies, Adverse Reactions, Alerts No Known [...] Solostar Pen 100 units/mL subcutaneous solution = 100 units, Subcutaneous Injection, Daily at bedtime, # 15 mL, 5 Refills, Maintenance, 04/12/21 10:08:00 EST, [id number], Partial fill upon patient request if the prescription is for a schedule II opioid drug., 156, cm, 02/12/21 11:45:00 EDT,... Start Date: 04/12/21 Status: Ordered Pen [place], 31 G x 5 mm BD Ultra [...]
--- OUTSIDE RECORDS SUMMARY | 2023-02-25 09:46 | XMS_ITS | Continuity of Care Document ---
Author Name Unknown Organization [facility] Address [address] [place] [address]- Care Team Providers Care Director Of Guidance Name Role Phone Chaz Leslie MD Primary Care Physician Encounter [facility] [place] Date(s): 03/25/21 - 04/24/21 Maternal Medicine [address] [place] [id number] Allergies, Adverse Reactions, Alerts Substance Reaction [...] injection See Instructions, 26 units with breakfast 34 units with lunch 34 ux with dinne4, # 15 mL, 5 Refills, Maintenance, 04/22/21 13:50:00 EST, [id number], Partial fill upon patient request if the prescription is for a schedule II opioid drug., 156... Start Date: 04/22/21 Status: Ordered Lantus Solostar Pen 100 units/mL subcutaneous solution = 76 units, Subcutaneous Injection, Daily at bedtime, # 15 mL, 5 Refills, Maintenance, 04/12/21 10:08:00 EST, [id number], Partial fill upon patient request if the prescription is for a schedule II opioid drug., 156, cm, 02/12/21 11:45:00 EDT,... Start Date: 04/12/21 Status: Ordered Pen [place], 31 G x 5 mm BD Ultra [...]
--- OUTSIDE RECORDS SUMMARY | 2023-02-25 09:47 | XMS_ITS | Continuity of Care Document ---
Author Name Unknown Organization [facility] Address [address] [place] [address]- Care Team Providers Care Biomedical Engineering Director Name Role Phone Chaz Leslie MD Primary Care Physician Encounter [facility] [place] Date(s): 04/09/21 - 05/09/21 Maternal Medicine [address] [place] [id number] Allergies, Adverse Reactions, Alerts Substance Reaction [...] dinner, # 15 mL, 5 Refills, Maintenance, 04/22/21 13:50:00 EST, [id number], Partial fill upon patient request if the prescription is for a schedule II opioid drug.,... Start Date: 04/22/21 Status: Ordered Lantus Solostar Pen 100 units/mL subcutaneous solution = 80 units, Subcutaneous Injection, Daily at bedtime, # 15 mL, 5 Refills, Maintenance, 04/12/21 10:08:00 EST, [id number], Partial fill upon patient request if the prescription is for a schedule II opioid drug., 156, cm, 02/12/21 11:45:00 EDT,... Start Date: 04/12/21 Status: Ordered Pen [place], 31 G x 5 mm BD Ultra [...]
--- OUTSIDE RECORDS SUMMARY | 2023-02-25 09:47 | XMS_ITS | Continuity of Care Document ---
Author Name Unknown Organization [facility] Address [address] [place] [address]- Care Team Providers Care Team Cdl Driver Name Role Phone Chaz Leslie MD Primary Care Physician [place] [facility] [place] - 05/09/[place] Maternal Medicine [address] [place] [id number] Allergies, Adverse Reactions, Alerts Substance [...] EDT,... Start Date: 04/12/21 Status: Ordered Pen [place], 31 G x 5 mm BD Ultra [...]
--- OUTSIDE RECORDS SUMMARY | 2023-02-25 09:47 | XMS_ITS | Continuity of Care Document ---
Author Name Unknown Organization [facility] Address [address] [place] [address]- Care Team Providers Care Bessemer Bottom Maker Name Role Phone Rich BLOCK, July E Primary Care Physician [place] [facility] [place] 04/22/21 - 05/22/21 Maternal Medicine [address] [place] [address]- Allergies, Adverse Reactions, Alerts Substance Reaction Severity [...] Solostar Pen 100 units/mL subcutaneous solution = 84 units, Subcutaneous Injection, Daily at bedtime, # 15 mL, 5 Refills, Maintenance, 04/12/21 10:08:00 EST, [id number], Partial fill upon patient request if the prescription is for a schedule II opioid drug., 156, cm, 02/12/21 11:45:00 EDT,... Start Date: 04/12/21 Status: Ordered Pen [place], 31 G x 5 mm BD Ultra [...]
--- OUTSIDE RECORDS SUMMARY | 2023-02-25 09:47 | XMS_ITS | Continuity of Care Document ---
Author Name Unknown Organization [facility] Address [address] [place] [address]- Care Team Providers Care Receptionist Telephone Operator Name Role Phone Not on Staff, PCP Primary Care Physician Unavail able Encounter [facility] Date(s): 07/23/21 - 08/22/21 Maternal Medicine [address] [place] [phone]- Allergies, Adverse Reactions, Alerts No Known Allergies [...] Weight Start Date: 04/02/21 Status: Ordered Pen [place], 31 G x 5 mm BD Ultra [...]
--- OUTSIDE RECORDS SUMMARY | 2023-02-25 09:47 | XMS_ITS | Continuity of Care Document ---
Author Name Unknown Organization [facility] Address [address] [place] [phone]- Care Team Providers Care Nurse Technician Name Role Phone Anuj BLOCK, Chaz Primary Care Physician Encounter [facility] Date(s): 05/14/21 - 06/13/21 Maternal Medicine [address] [place] [id number] Allergies, Adverse Reactions, Alerts [...] Solostar Pen 100 units/mL subcutaneous solution = 90 units, Subcutaneous Injection, Daily at bedtime, # 15 mL, 5 Refills, Maintenance, 04/12/21 10:08:00 EST, [id number], Partial fill upon patient request if the prescription is for a schedule II opioid drug., 156, cm, 02/12/21 11:45:00 EDT,... Start Date: 04/12/21 Status: Ordered Pen [place], 31 G x 5 mm BD Ultra [...]
--- OUTSIDE RECORDS SUMMARY | 2023-02-25 09:47 | XMS_ITS | Continuity of Care Document ---
Author Name Unknown Organization [facility] Address [address] [place] [address]- Care Team Providers Care Highway Maintenance Crew Worker Name Role Phone Chaz Leslie MD Primary Care Physician [phone] [place] [facility] [place] 05/21/21 - 06/20/21 Maternal Medicine [address] [place] [id number] Allergies, Adverse Reactions, Alerts No [...] dinner, # 15 mL, 5 Refills, Maintenance, 06/18/21 13:10:00 EST, [facility]/pharmacy #[id number], Partial fill upon patient request if the prescription is for a schedule II opioid drug.,... Start Date: 06/18/21 Status: Ordered Lantus Solostar Pen 100 units/mL subcutaneous solution = 90 units, Subcutaneous Injection, Daily at bedtime, # 15 mL, 5 Refills, Maintenance, 04/12/21 10:08:00 EST, [id number], Partial fill upon patient request if the prescription is for a schedule II opioid drug., 156, cm, 02/12/21 11:45:00 EDT,... Start Date: 04/12/21 Status: Ordered Pen [place], 31 G x 5 mm BD Ultra [...]
--- OUTSIDE RECORDS SUMMARY | 2023-02-25 09:47 | XMS_ITS | Continuity of Care Document ---
Author Name Unknown Organization [facility] Address [address] [place] [address]- Care Team Providers Care Certified Technician Specialist Name Role Phone Not on Staff, PCP Primary Care Physician Unavail able Encounter [facility] Date(s): 07/30/21 - 08/29/21 Maternal Medicine [address] [place] [address]- Allergies, Adverse Reactions, Alerts No Known Allergies [...] Weight Start Date: 04/02/21 Status: Ordered Pen [place], 31 G x 5 mm BD Ultra [...]
--- OUTSIDE RECORDS SUMMARY | 2023-02-25 09:47 | XMS_ITS | Continuity of Care Document ---
Author Name Unknown Organization [facility] Address [address] [place] [address]- Care Team Providers Care Automotive Power Electronics Engineer Name Role Phone Not on Staff, PCP Primary Care Physician Unavail able Encounter [facility] Date(s): 08/19/21 - 08/30/[address] [address]- Attending Physician: Nuha Augustin MD Referring Physician: Suellen Jaimes DO Allergies, Adverse Reactions, Alerts No Known Allergies [...] Weight Start Date: 04/02/21 Status: Ordered Pen [place], 31 G x 5 mm BD Ultra [...]
--- OUTSIDE RECORDS SUMMARY | 2023-02-25 09:47 | XMS_ITS | Continuity of Care Document ---
Author Name Unknown Organization [facility] Address [address] [place] [address]- Care Team Providers Care Glass Laminating Operator Name Role Phone Chaz Leslie MD Primary Care Physician [place] [facility] [place]s): 02/26/21 - 03/28/21 Maternal Medicine [address] [place] [phone] Allergies, Adverse Reactions, Alerts Substance [...] 9:11:11 EST Start Date: 08/06/18 Status: Ordered FREESTYLE LITE METER FREESTYLE LITE METER, 0 Refills, Maintenance, 08/06/18 9:11:14 EST Start Date: 08/06/18 Status: Ordered FREESTYLE LITE TEST STRIP FREESTYLE LITE TEST STRIP, 0 Refills, Maintenance, 08/06/18 9:11:17 EST Start Date: 08/06/18 Status: Ordered Humalog Kwik Pen 100 units/mL subcutaneous injection See Instructions, 12 units with breakfast 16 units with lunch 16 ux with dinner, # 15 mL, 5 Refills, Maintenance, 03/19/21 12:17:00 EDT, [id number], Partial fill upon patient request if the prescription is for a schedule II opioid drug., 156... Start Date: 03/19/21 Status: Ordered Lantus Solostar Pen 100 units/mL subcutaneous solution = 48 units, Subcutaneous Injection, Daily at bedtime, # 15 mL, 5 Refills, Maintenance, 03/11/21 13:52:00 EDT, [facility]/pharmacy #[id number], Partial fill upon patient request if the prescription is for a schedule II opioid drug., 156, cm, 02/12/21 11:45:00 EDT,... Start Date: 03/11/21 Status: Ordered Pen [place], 31 G x 5 mm BD Ultra [...]
--- OUTSIDE RECORDS SUMMARY | 2023-02-25 09:47 | XMS_ITS | Continuity of Care Document ---
Author Name Unknown Organization [facility] Address [address] [place] [address]- Care Team Providers Care Maintenance Supervisor Electrical Name Role Phone Anuj BLOCK, Chaz Primary Care Physician En[place] [facility] [place] Date(s): 07/09/21 - 08/08/21 Maternal Medicine [address] [place] [id number] Attending Physician: Admtr, Ar8 Admitting Physician: Admtr, Ar8 Referring Physician: Admtr, Ar8 Allergies, Adverse Reactions, Alerts No Known Allergies [...] mL, 1 Refills, Maintenance, 07/03/21 16:11:00 EST, [facility]/pharmacy #[id number], Partial fill upon patient request if [...] opio... Start Date: 07/09/21 Status: Ordered Pen [place], 31 G x 5 mm BD Ultra [...]
--- OUTSIDE RECORDS SUMMARY | 2023-02-25 09:47 | XMS_ITS | Continuity of Care Document ---
Author Name Unknown Organization [facility] Address [address] [place] [address]- Care Team Providers Care Fellmongery Worker Name Role Phone Chaz Leslie MD Primary Care Physician [phone] Encounter [facility] [place] Date(s): 06/11/21 - 07/11/21 Maternal Medicine [address] [place] [id number] Allergies, Adverse Reactions, Alerts No Known Allergies [...] opioi... Start Date: 07/09/21 Status: Ordered Pen [place], 31 G x 5 mm BD Ultra [...]
--- OUTSIDE RECORDS SUMMARY | 2023-02-25 09:47 | XMS_ITS | Continuity of Care Document ---
Author Name Unknown Organization [facility] Address [address] [place] [address]- Care Team Providers Care Cipher Expert Name Role Phone Chaz Leslie MD Primary Care Physician En[place] [facility] [place] Date(s): 02/19/21 - 03/21/21 Maternal Medicine [address] [place] [email or web address] Allergies, Adverse Reactions, Alerts Substance Reaction Severity [...] Humalog Kwik Pen 100 units/mL subcutaneous injection = 12 units, Subcutaneous Injection, 3 times a day before meals, # 15 mL, 5 Refills, Maintenance, 03/19/21 12:17:00 EDT, [facility]/pharmacy #[id number], Partial fill upon patient request if the prescription is for a schedule II opioid drug., 156, cm, 02/12/21 11:4... Start Date: 03/19/21 Status: Ordered Lantus Solostar Pen 100 units/mL subcutaneous solution = 40 units, Subcutaneous Injection, Daily at bedtime, # 15 mL, 5 Refills, Maintenance, 03/11/21 13:52:00 EDT, [facility]/pharmacy #[id number], Partial fill upon patient request if the prescription is for a schedule II opioid drug., 156, cm, 02/12/21 11:45:00 EDT,... Start Date: 03/11/21 Status: Ordered Pen [place], 31 G x 5 mm BD Ultra [...]
--- OUTSIDE RECORDS SUMMARY | 2023-02-25 09:47 | XMS_ITS | Continuity of Care Document ---
Author Name Unknown Organization [facility] Address [address] [place] [phone]- Care Team Providers Care Tree Pruner Name Role Phone Not on Staff, PCP Primary Care Physician Unavail able Encounter [facility] Date(s): 08/05/21 - 09/04/21 Maternal Medicine [address] [place] [phone]- Allergies, Adverse Reactions, Alerts No Known Allergies [...] Weight Start Date: 04/02/21 Status: Ordered Pen [place], 31 G x 5 mm BD Ultra [...]
--- OUTSIDE RECORDS SUMMARY | 2023-02-25 09:47 | XMS_ITS | Continuity of Care Document ---
Author Name Unknown Organization [facility] Address [address] [place] [address]- Care Team Providers Care Dry Cleaner Helper Name Role Phone Chaz Leslie MD Primary Care Physician [facility] [facility] [place] Date(s): 06/24/21 - 07/24/21 Maternal Medicine [address] [place] [id number] Allergies, Adverse Reactions, Alerts No Known [...] Pen 100 units/mL subcutaneous solution See Instructions, 26 units in the a.m. and 102 units in the p.m. Subcutaneous Injection Daily, # 30mL, 5 Refills, Maintenance, 07/09/21 11:34:00 EST, [id number], Partial fill upon patient request if the prescription is for a schedule II opio... Start Date: 07/09/21 Status: Ordered Pen [place], 31 G x 5 mm BD Ultra [...]
--- OUTSIDE RECORDS SUMMARY | 2023-02-25 09:47 | XMS_ITS | Continuity of Care Document ---
Author Name Unknown Organization [facility] ter Address [address] [place] [address]- Care Team Providers Care Box Repairer Name Role Phone Chaz Leslie MD Primary Care Physician [phone] [place] [facility] [place] 02[place] - 03/22/[address] [address] Attending Physician: Mickey Mcguire MD Admitting Physician: Mickey Mcguire MD Referring Physician: Mickey Mcguire MD Allergies, Adverse Reactions, Alerts Substance Reaction Severity [...] mL, 5 Refills, Maintenance, 03/19/21 12:17:00 EDT, [facility]/pharmacy #[id number], Partial fill upon patient request if the prescription is for a schedule II opioid drug., 156, cm, 02/12/21 11:4... Start Date: 03/19/21 Status: Ordered Lantus Solostar Pen 100 units/mL subcutaneous solution = 40 units, Subcutaneous Injection, Daily at bedtime, # 15 mL, 5 Refills, Maintenance, 03/11/21 13:52:00 EDT, [id number], Partial fill upon patient request if the prescription is for a schedule II opioid drug., 156, cm, 02/12/21 11:45:00 EDT,... Start Date: 03/11/21 Status: Ordered Pen [place], 31 G x 5 mm BD Ultra [...]
--- OUTSIDE RECORDS SUMMARY | 2023-02-25 09:47 | XMS_ITS | Continuity of Care Document ---
Author Name Unknown Organization [facility] Address [address] [place] [address]- Care Team Providers Care Stamping Machine Operator Name Role Phone Not on Staff, PCP Primary Care Physician Unavail able Encounter [facility] Date(s): 08/20/21 - 09/19/21 [facility] [address] [place] [address]- Allergies, Adverse Reactions, Alerts No Known Allergies [...] Weight Start Date: 04/02/21 Status: Ordered Pen [place], 31 G x 5 mm BD Ultra [...]
--- OUTSIDE RECORDS SUMMARY | 2023-02-25 09:47 | XMS_ITS | Continuity of Care Document ---
Author Name Unknown Organization [facility] Address [address] [place] [address]- Care Team Providers Care Machine Bunch Maker Name Role Phone Chaz Leslie MD Primary Care Physician [place] [facility] [place] - 07/19/21 M[facility] Medicine [address] [place] [address] Allergies, Adverse Reactions, Alerts No Known [...] Instructions, 20 units in the a.m. and 96 units in the p.m. Subcutaneous Injection Daily, # 30 mL, 5 Refills, Maintenance, 07/09/21 11:34:00 EST, [id number], Partial fill upon patient request if the prescription is for a schedule II opioi... Start Date: 07/09/21 Status: Ordered Pen [place], 31 G x 5 mm BD Ultra [...]
--- OUTSIDE RECORDS SUMMARY | 2023-02-25 09:47 | XMS_ITS | Continuity of Care Document ---
Author Name Unknown Organization [facility] Address [address] [place] [address]- Care Team Providers Care Insurance Claim Representative Name Role Phone Chaz Leslie MD Primary Care Physician [phone] [place] [facility] [place] - 07/19/21 Maternal Medicine [address] [place] [address] Allergies, Adverse Reactions, Alerts No [...] opioi... Start Date: 07/09/21 Status: Ordered Pen [place], 31 G x 5 mm BD Ultra [...]
--- OUTSIDE RECORDS SUMMARY | 2023-02-25 09:47 | XMS_ITS | Continuity of Care Document ---
Author Name Unknown Organization [facility] Address [address], [address] [place] [address]- Care Team Providers Care Manager Community Outreach Name Role Phone Chaz Leslie MD Primary Care Physician [id number] Date(s): 01/24/21 - 02/23/21 [facility] [address], [address] [place], [place] [address] Allergies, Adverse Reactions, Alerts Substance Reaction Severity Status NKA Active Immunizations Given and Recorded Vaccine Date Status Refusal Reason tetanus/diphtheria/pertussis, acel(Tdap) 07/24/15 Given influenza virus vaccine, inactivated 04/03/15 Give n Medications Tracey 0.35 mg oral tablet 0 Refills, Maintenance, 08/06/18 9:10:55 EST Start Date: 08/06/18 Status: Ordered FREESTYLE 28G LANCETS FREESTYLE 28G LANCETS, 0 Refills, Maintenance, 08/06/18 9:11:11 EST Start Date: 08/06/18 Status: Ordered Freestyle Lancets See Instructions, # 50 each, Refills 6, Tot. Refills 6, Maintenance, use to check blood sugar once daily. E 11.9, 07/15/18 16:20:07 EST, Compound Start Date: 07/15/18 Status: Ordered FREESTYLE LITE METER FREESTYLE LITE METER, 0 Refills, Maintenance, 08/06/18 9:11:14 EST Start Date: 08/06/18 Status: Ordered Freestyle Lite Monitor See Instructions, # 1 each, Refills 0, Tot. Refills 0, Maintenance, use to check blood sugar once daily. E 11.9, 07/15/18 16:19:57 EST, Compound Start Date: 07/15/18 Status: Ordered FREESTYLE LITE TEST STRIP FREESTYLE LITE TEST STRIP, 0 Refills, Maintenance, 08/06/18 9:11:17 EST Start Date: 08/06/18 Status: Ordered Freestyle Lite Test Strips See Instructions, # 50 each, Refills 6, Tot. Refills 6, Maintenance, use to check blood sugar daily. E 11.9, 07/15/18 16:20:11 EST, Compound Start Date: 07/15/18 Status: Ordered ibuprofen 600 mg oral tablet 600 mg, By Mouth, Every 6 hours, PRN, # 80 tablet, Refills 0, Tot. Refills 0, Maintenance, as needed for pain, 10/19/15 8:55:40, Print Requisition Start Date: 10/19/15 Status: Ordered Lantus Solostar Pen 100 units/mL subcutaneous solution = 20 units, Subcutaneous Injection, Daily at bedtime, # 10 mL, 3 Refills, Maintenance, 08/06/18 10:37:56 EST, Solution Start Date: 08/06/18 Status: Ordered lisinopril 10 mg oral tablet 10 mg, 1, tablet, By Mouth, Daily, # 30 tablet, Refills 6, Tot. Refills 6, Maintenance, 08/06/18 10:41:36 EST, Route to Pharmacy Electronically, [id number], [facility]/pharmacy #[id number] Start Date: 08/06/18 Status: Ordered metFORMIN 500 mg oral tablet, extended release 2 tablet = 1,000 mg, By Mouth, 2 times a day with meals, # 120 tablet, 11 Refills, Maintenance, 09/22/18 9:00:34 EDT, E11.65 Start Date: 09/22/18 Stop Date: 09/17/19 Status: Ordered NuvaRing 0.015 mg-0.120 mg vaginal ring 1 each, Vaginally, Once, # 1 each, 11 Refills, Soft Stop, 09/16/16 7:51:19, 1 each Vaginally Once Start Date: 09/16/16 Status: Ordered nystatin topical 026067 u/gm powder 0 Refills, Maintenance, 08/06/18 9:11:08 EST Start Date: 08/06/18 Status: Ordered Pen [place], 32 G x 4 mm BD Ultra Fine III See instructions, # 200 each, Refills 5, Tot. Refills 5, Maintenance, use as directed for Type 2 Diabetes Mellitus daily at bedtime, 08/13/18 14:51:09 EDT, Compound Start Date: 08/13/18 Stop Date: 02/09/19 Status: Ordered Problem List Condition Effective Dates Status Health Status Inform ant Anemia(Confirmed) Active Diabetes, gestational(Confirmed) Active
--- OUTSIDE RECORDS SUMMARY | 2023-02-25 09:48 | XMS_ITS | Continuity of Care Document ---
Author Name Unknown Organization [facility] Address [address] [place] [address]- Care Team Providers Care Toddler Teacher Name Role Phone Chaz Leslie MD Primary Care Physician [phone] [place] [facility] [place]19[place] - 04/18/21 [facility] Medicine [address] [place] [id number] Attending Physician: Admtr, Ar8 Admitting Physician: Admtr, Ar8 Referring Physician: Admtr, Ar8 Allergies, Adverse Reactions, Alerts Substance Reaction Severity [...] mL, 5 Refills, Maintenance, 03/19/21 12:17:00 EDT, [facility]/pharmacy #[id number], Partial fill upon patient request if [...] EDT,... Start Date: 04/12/21 Status: Ordered Pen [place], 31 G x 5 mm BD Ultra [...]
--- OUTSIDE RECORDS SUMMARY | 2023-02-25 09:48 | XMS_ITS | Continuity of Care Document ---
Author Name Unknown Organization [facility] Address [address] [place] [address]- Care Team Providers Care Worm Grower Name Role Phone Not on Staff, PCP Primary Care Physician Unavail able Encounter [facility] Date(s): 08/13/21 - 09/12/21 [facility] [address] [place] [address]- Allergies, Adverse Reactions, Alerts No Known Allergies [...] Weight Start Date: 04/02/21 Status: Ordered Pen [place], 31 G x 5 mm BD Ultra [...]
--- OUTSIDE RECORDS SUMMARY | 2023-02-25 09:48 | XMS_ITS | Continuity of Care Document ---
Author Name Unknown Organization [facility] ter Address [address] [place] [address]- Care Team Providers Care Chemical Production Engineer Name Role Phone Not on Staff, PCP Primary Care Physician Unavail able Encounter [facility] Date(s): 02/13/21 - 02/14/[address] [address] Encounter Diagnosis COVID-19 affecting in first trimester(Final) - 02/13/21 Discharge Disposition: A-D/C Home Attending Physician: Ulises Lala DO Admitting Physician: Ulises Lala DO Referring Physician: Not on Staff, Referring MD Allergies, Adverse Reactions, Alerts Substance Reaction Severity Status NKA Active Immunizations Given and Recorded Vaccine Date Status Refusal Reason tetanus/diphtheria/pertussis, acel(Tdap) 07/24/15 Given influenza virus vaccine, inactivated 04/03/15 Give n Medications amoxicillin-clavulanate 875 mg-125 mg oral tablet = 875 mg, By Mouth, 2 times a day, for 6 days, # 13 tablet, 0 Refills, Acute 02/20/21 14:05:00 EDT,02/14/21 14:05:00 EDT, Tablet, [facility], Partial fill upon patient request if the prescription is for a schedule II opioid drug., 156,... Start Date: 02/14/21 Stop Date: 02/20/21 Status: Ordered Tracey 0.35 mg oral tablet 0 Refills, Maintenance, 08/06/18 9:10:55 EST Start Date: 08/06/18 Status: Ordered dexamethasone 4 mg oral tablet 1.5 tablet = 6 mg, By Mouth, Daily, for 9 days, # 13.5 tablet, 0 Refills, Acute 02/23/21 14:05:00 EDT, 02/14/21 14:05:00 EDT, Tablet, [facility], Partial fill upon patient request if the prescription is for a schedule II opioid drug., 15... Start Date: 02/14/21 Stop Date: 02/23/21 Status: Ordered FREESTYLE 28G LANCETS FREESTYLE 28G [...] 08/06/18 10:41:36 EST, Route to Pharmacy Electronically, [id number], [id number] Start Date: 08/06/18 Status: Ordered metFORMIN [...] Start Date: 09/16/16 Status: Ordered nystatin topical 974441 u/gm powder 0 Refills, Maintenance, 08/06/18 9:11:08 EST Start Date: 08/06/18 Status: Ordered Pen [place], 32 G x 4 mm BD Ultra Fine III See instructions, # 200 each, Refills 5, Tot. Refills 5, Maintenance, use as directed for Type 2 Diabetes Mellitus daily at bedtime, 08/13/18 14:51:09 EDT, Compound Start Date: 08/13/18 Stop Date: 02/09/19 Status: Ordered Problem List Condition Effective Dates Status Health Status Inform ant Anemia(Confirmed) Active Diabetes, gestational(Confirmed) Active Results Orders for Microbiology Reports Name Date Urine Culture (URINE CULTURE) 02/13/21 Microbiology Reports TEST:Urine Culture STATUS:Unauthenticated BODY SITE: SOURCE:URINE COLLECTED DATE/TIME:02/13/21 1:54 PM Urine Culture SPECIMEN DESCRIPTION : URINE CLEAN CATCH/MIDSTREAM SPECIAL REQUESTS : NONE Reflexed from [id number] REPORT STATUS : PRELIMINARY REPORT Radiology Reports * Exam Date Time Procedure Performing Provider Status 02/13/21 6:36 PM Chest Portable Mak Yin; Auth (Ve rified) Notes: (Chest Portable) Reason For Exam: Shortness of Breath RESULT: Chest Portable Chest Portable Reason: Shortness of Breath; Clinical Question(s): CHF COMPARISON: None. FINDINGS: LINES AND TUBES: None. LUNGS AND PLEURA: Low lung volumes. Patchy perihilar and infrahilar airspace opacities. Normal pulmonary vascularity. No pleural effusion. No pneumothorax. HEART, MEDIASTINUM AND ASHLEY: Heart is normal in size. Normal upper mediastinal and hilar contour. BONES AND SOFT TISSUES: No acute abnormality. IMPRESSION: Patchy perihilar and infrahilar airspace opacities may reflect atelectasis or pneumonia. WSN: [id number] Ordering Physician: Leonora Addison Dictated By: Adi Huff MD Dictated Date/Time: 02/13/21 6:43 pm Reviewed By: Adi Huff MD Signed By: Adi Huff MD Signed Date/Time: 02/13/21 6:43 pm Transcribed By: DENICE Transcribed Date/Time: 02/13/21 6:40 pm Vital Signs Most recent to oldest [Reference Range]: 1 2 3 Oxygen Saturation [94-100 %] 94 % (02/14/21 7:50 AM) 92 % *L* (02/14/21 4:00 AM) 97 % (02/13/21 11:00 PM) Pulse Rate [55-90 bpm] 95 bpm *H* (02/14/21 7:50 AM) 86 bpm (02/14/21 4:00 AM) 100 bpm *H* (02/13/21 11:17 PM) Blood Pressure [90-138/55-84 mm Hg] 111/73mm Hg (02/14/21 7:50 AM) 131/77mm Hg (02/14/21 4:00 AM) 126/74mm Hg (02/13/21 11:17 PM) Respiratory Rate [16-30 br/min] 18 br/min (02/14/21 7:50 AM) 18 br/min (02/14/21 4:00 AM) 20 br/min (02/13/21 11:17 PM) Temperature [96.8-100.4 DegF] 98.1 DegF (02/14/21 7:50 AM) 98.0 DegF (02/14/21 4:00 AM) 98.6 DegF (02/13/21 11:17 PM) Liters per Minute 1 L/min (02/13/21 8:00 PM) 2 L/min (02/13/21 3:42 PM) Mode of Delivery (Oxygen) Room air (02/14/21 7:50 AM) Room air (02/14/21 4:00 AM) Room air (02/13/21 11:00 PM) Blood pressure sites Arm, right (02/14/21 7:50 AM) Arm, left (02/14/21 4:00 AM) Arm, right (02/13/21 11:17 PM) Temperature Route Oral (02/14/21 7:50 AM) Oral (02/14/21 4:00 AM) Oral (02/13/21 11:17 PM)
--- OUTSIDE RECORDS SUMMARY | 2023-02-25 09:48 | XMS_ITS | Continuity of Care Document ---
Author Name Unknown Organization [facility] Address [address] [place] [address]- Care Team Providers Care Integration Specialist Name Role Phone Chaz Leslie MD Primary Care Physician En[place] [facility] [place] Date(s): 04/02/21 - 05/02/21 Maternal Medicine [address] [place] [address] Allergies, Adverse Reactions, Alerts Substance Reaction [...] EDT,... Start Date: 04/12/21 Status: Ordered Pen [place], 31 G x 5 mm BD Ultra [...]
--- OUTSIDE RECORDS SUMMARY | 2023-02-25 09:48 | XMS_ITS | Continuity of Care Document ---
Author Name Unknown Organization [facility] Address [address] [place] [address]- Care Team Providers Care Flour Worker Name Role Phone Anuj BLOCK, Chaz Primary Care Physician Encounter [facility] Date(s): 07/08/21 - 08/07/21 Maternal Medicine [address] [place] [id number] Allergies, Adverse Reactions, Alerts [...] opio... Start Date: 07/09/21 Status: Ordered Pen [place], 31 G x 5 mm BD Ultra [...]
--- OUTSIDE RECORDS SUMMARY | 2023-02-25 09:48 | XMS_ITS | Continuity of Care Document ---
Author Name Unknown Organization [facility] Address [address] [place] [address]- Care Team Providers Care Disbursement Clerk Name Role Phone Rich BLOCK, July E Primary Care Physician En[facility] [place] Date(s): 04/16/21 - 05/16/21 Maternal Medicine [address] [place] [address]- Allergies, Adverse Reactions, Alerts Substance Reaction Severity [...] EDT,... Start Date: 04/12/21 Status: Ordered Pen [place], 31 G x 5 mm BD Ultra [...]
--- OUTSIDE RECORDS SUMMARY | 2023-02-25 09:48 | XMS_ITS | Continuity of Care Document ---
Author Name Unknown Organization [facility] ter Address [address] [place] [address]- Care Team Providers Care Supervisor Photostat Name Role Phone Not on Staff, PCP Primary Care Physician Unavail able [place] [facility] [place] Date(s): 08/20/21 - 08/22/[address] [address]- Discharge Disposition: A-D/C Home Attending Physician: Suellen Jaimes DO Admitting Physician: Suellen Jaimes DO Referring Physician: Suellen Jaimes DO Allergies, Adverse Reactions, Alerts No Known Allergies Immunizations Given and Recorded Vaccine Date Status Refusal Reason Measles/Mumps/Rubella Virus Vaccine 1 08/21/21 Giv en tetanus/diphtheria/pertussis, acel(Tdap) 07/24/15 Given influenza virus vaccine, inactivated 04/03/15 Give n 1Result Comment: administered subcutaneous to right posterior arm Medications Acetaminophen Tablet 650 mg, Tablet, By Mouth, Every 4 hours, PRN for Pain , Mild, (1-3), may give 325mg per patient preference and re-dose with 325mg within 4 hours, if needed. Patient should only receive a total of 650mg of Acetaminophen every 4 hours., Routine, 08/20... Start Date: 08/20/21 Stop Date: 08/23/21 Status: Discontinued Alcohol Pads See Instructions, # 1 pack/packet, [...] Weight Start Date: 04/02/21 Status: Ordered Pen [place], 31 G x 5 mm BD Ultra [...] obesity(Confirmed) Active Type 2 diabetes mellitus(Confirmed) Active Vital Signs Most recent to oldest [Reference Range]: 1 2 3 Height 155 cm (08/22/21 8:15 AM) 155 cm (08/22/21 12:00 AM) 155 cm (08/21/21 5:01 PM) Weight 116 kg (08/20/21 8:56 PM) 116 kg (08/20/21 8:02 AM) Oxygen Saturation [94-100 %] 97 % (08/22/21 12:00 AM) 98 % (08/21/21 3:00 AM) 96 % (08/20/21 8:45 PM) Pulse Rate [55-90 bpm] 96 bpm *H* (08/22/21 8:15 AM) 83 bpm (08/22/21 12:00 AM) 85 bpm (08/21/21 11:59 AM) Body Mass Index [18.5-24.99] 48.28 *>HHI* (08/20/21 8:02 AM) Blood Pressure [90-138/55-84 mm Hg] 146/94mm Hg *H* (08/22/21 5:00 PM) 138/90mm Hg (08/22/21 8:15 AM) 139/76mm Hg *H* (08/22/21 12:00 AM) Respiratory Rate [16-30 br/min] 16 br/min (08/22/21 8:15 AM) 18 br/min (08/22/21 6:45 AM) 18 br/min (08/22/21 12:00 AM) Temperature [96.8-100.4 DegF] 97.9 DegF (08/22/21 8:15 AM) 98.0 DegF (08/22/21 12:00 AM) 98.7 DegF (08/21/21 5:01 PM) Mode of Delivery (Oxygen) Room air (08/22/21 12:00 AM) Room air (08/21/21 3:00 AM) Blood pressure sites Arm, right (08/22/21 8:15 AM) Arm, right (08/21/21 5:01 PM) Arm, right (08/21/21 11:59 AM) Temperature Route Oral (08/22/21 8:15 AM) Oral (08/22/21 12:00 AM) Oral (08/21/21 5:01 PM) Dry Weight 116 kg (08/20/21 8:02 AM) Weight Obtained Via Standing scale (08/20/21 8:56 PM)
--- OUTSIDE RECORDS SUMMARY | 2023-02-25 09:48 | XMS_ITS | Continuity of Care Document ---
Author Name Unknown Organization [facility] Address [address] [place] [address]- Care Team Providers Care Research And Development Tester Name Role Phone Chaz Leslie MD Primary Care Physician En[place] [facility] [place] Date(s): 06/27/21 - 07/27/21 Maternal Medicine [address] [place] [id number] Allergies, Adverse Reactions, Alerts No [...] opio... Start Date: 07/09/21 Status: Ordered Pen [place], 31 G x 5 mm BD Ultra [...]
--- OUTSIDE RECORDS SUMMARY | 2023-02-25 09:48 | XMS_ITS | Continuity of Care Document ---
Author Name Unknown Organization [facility] Address [address] [place] [address]- Care Team Providers Care Machine Stuffer Name Role Phone Chaz Leslie MD Primary Care Physician [phone] [place] [facility] [place](s): 04/12/21 - 05/12/21 Maternal Medicine [address] [place] [address] Allergies, Adverse Reactions, [...] EDT,... Start Date: 04/12/21 Status: Ordered Pen [place], 31 G x 5 mm BD Ultra [...]
--- OUTSIDE RECORDS SUMMARY | 2023-02-25 09:48 | XMS_ITS | Continuity of Care Document ---
Author Name Unknown Organization [facility] Address [address] [place] [address]- Care Team Providers Care Manager Fine Dining Name Role Phone Not on Staff, PCP Primary Care Physician Unavail able Encounter [facility] Date(s): 03/18/21 - 04/17/21 Maternal Medicine [address] [place] [id number] Allergies, Adverse Reactions, [...] EDT,... Start Date: 04/12/21 Status: Ordered Pen [place], 31 G x 5 mm BD Ultra [...]
--- OUTSIDE RECORDS SUMMARY | 2023-02-25 09:48 | XMS_ITS | Continuity of Care Document ---
Author Name Unknown Organization [facility] Address [address] [place] [address]- Care Team Providers Care Netezza Developer Name Role Phone Chaz Leslei MD Primary Care Physician Encounter [facility] [place] Date(s): 01/11/21 - 02/10/[address] [id number] Allergies, Adverse Reactions, Alerts Substance Reaction Severity Status Shrimp Active Immunizations Given and Recorded Vaccine Date [...] 08/06/18 10:41:36 EST, Route to Pharmacy Electronically, [id number], [facility]/pharmacy #[id number] Start Date: 08/06/18 Status: Ordered metFORMIN [...] Start Date: 09/16/16 Status: Ordered nystatin topical 353726 u/gm powder 0 Refills, Maintenance, 08/06/18 9:11:08 EST Start Date: 08/06/18 Status: Ordered Pen [place], 32 G x 4 mm BD Ultra [...]
--- OUTSIDE RECORDS SUMMARY | 2023-02-25 09:48 | XMS_ITS | Continuity of Care Document ---
Author Name Unknown Organization [facility] Address [address] [place] [address]- Care Team Providers Care Teacher Counselor Name Role Phone Anuj BLOCK, Chaz Primary Care Physician Encounter [facility] Date(s): 04/29/21 - 05/29/21 Maternal Medicine [address] [place] [id number] Allergies, Adverse Reactions, Alerts [...] EDT,... Start Date: 04/12/21 Status: Ordered Pen [place], 31 G x 5 mm BD Ultra [...]
--- OUTSIDE RECORDS SUMMARY | 2023-02-25 09:49 | XMS_ITS | Continuity of Care Document ---
Author Name Unknown Organization [facility] Address [address] [place] [address]- Care Team Providers Care Electrical Systems Engineer Name Role Phone Chaz Leslie MD Primary Care Physician [place] [facility] [place] 05/13/21 - 06/12/21 Maternal Medicine [address] [place] [id number] Allergies, Adverse Reactions, Alerts Substance [...] EDT,... Start Date: 04/12/21 Status: Ordered Pen [place], 31 G x 5 mm BD Ultra [...]
--- OUTSIDE RECORDS SUMMARY | 2023-02-25 09:49 | XMS_ITS | Continuity of Care Document ---
Author Name Unknown Organization [facility] Address [address] [place] [address]- Care Team Providers Care Dining Room Manager Name Role Phone Chaz Leslie MD Primary Care Physician Encounter [facility] [place] Date(s): 07/01/21 - 07/31/21 Maternal Medicine [address] [place] [id number] Allergies, Adverse Reactions, Alerts No [...] Pen 100 units/mL subcutaneous solution See Instructions, 32 units in the a.m. and 108 units in the p.m. Subcutaneous Injection Daily, # 30mL, 5 Refills, Maintenance, 07/09/21 11:34:00 EST, [id number], Partial fill upon patient request if the prescription is for a schedule II opio... Start Date: 07/09/21 Status: Ordered Pen [place], 31 G x 5 mm BD Ultra [...]
--- OUTSIDE RECORDS SUMMARY | 2023-02-25 09:49 | XMS_ITS | Continuity of Care Document ---
Author Name Unknown Organization [facility] Address [address] [place] [address]- Care Team Providers Care Nurse Midwife Name Role Phone Chaz Leslie MD Primary Care Physician [place] [facility] [place]s): 04/02/21 - 05/02/21 Maternal Medicine [address] [place] [id number] Allergies, Adverse Reactions, Alerts [...] EDT,... Start Date: 04/12/21 Status: Ordered Pen [place], 31 G x 5 mm BD Ultra [...]
--- OUTSIDE RECORDS SUMMARY | 2023-02-25 09:49 | XMS_ITS | Continuity of Care Document ---
Author Name Unknown Organization [facility] Address [address] [place] [address]- Care Team Providers Care Formwork Carpenter Name Role Phone Anuj BLOCK, Chaz Primary Care Physician [place] [facility] [place](s): 05/07/21 - 06/06/21 Maternal Medicine [address] [place] [id number] Allergies, Adverse Reactions, Alerts [...] EDT,... Start Date: 04/12/21 Status: Ordered Pen [place], 31 G x 5 mm BD Ultra [...]
--- OUTSIDE RECORDS SUMMARY | 2023-02-25 09:49 | XMS_ITS | Continuity of Care Document ---
Author Name Unknown Organization [facility] Address [address] [place] [id number]- Care Team Providers Care Primary Clinician Name Role Phone Chaz Leslie MD Primary Care Physician Encounter [facility] [place] Date(s): 05/03/21 - 06/02/[address] [id number]- Attending Physician: Josselin Escalante Admitting Physician: AdmJosselin ontiveros Referring Physician: AdmtrJosselin Allergies, Adverse Reactions, Alerts Substance Reaction Severity [...] EDT,... Start Date: 04/12/21 Status: Ordered Pen [place], 31 G x 5 mm BD Ultra [...]
--- OUTSIDE RECORDS SUMMARY | 2023-02-25 09:49 | XMS_ITS | Continuity of Care Document ---
Author Name Unknown Organization [facility] Address [address] [place] [id number] Care Team Providers Care Offender Job Retention Specialist Name Role Phone Chaz Leslie MD Primary Care Physician Encounter [facility] [place] Date(s): 05/27/21 - 06/26/21 [facility] [address] [place] [id number] Allergies, Adverse Reactions, Alerts No Known [...] mL, 5 Refills, Maintenance, 06/18/21 13:10:00 EST, [facility]pharmacy #[id number], Partial fill upon patient request if the prescription is for a schedule II opioid drug.,... Start Date: 06/18/21 Status: Ordered Lantus Solostar Pen 100 units/mL subcutaneous solution = 92 units, Subcutaneous Injection, Daily at bedtime, # 15 mL, 5 Refills, Maintenance, 04/12/21 10:08:00 EST, [facility]acy #[id number], Partial fill upon patient request if the prescription is for a schedule II opioid drug., 156, cm, 02/12/21 11:45:00 EDT,... Start Date: 04/12/21 Status: Ordered Pen [place], 31 G x 5 mm BD Ultra [...]
--- OUTSIDE RECORDS SUMMARY | 2023-02-25 09:49 | XMS_ITS | Continuity of Care Document ---
Author Name Unknown Organization [facility] Address [address] [place] [id number]- Care Team Providers Care Retail Agent Name Role Phone Not on Staff, PCP Primary Care Physician Unavail able Encounter [facility] Date(s): 08/20/21 - 09/19/21 [facility] [address] [place] [id number]- Allergies, Adverse Reactions, Alerts No Known Allergies [...] Weight Start Date: 04/02/21 Status: Ordered Pen [place], 31 G x 5 mm BD Ultra [...]
== END 2023-02-25 09:49 | disposition home or self-care (01) ==
LOC: HO.HBS 09:44
PROVIDERS: Visit Provider Dietitian, Registered
DX: E66.01 Morbid (severe) obesity due to excess calories (principal)

== ENCOUNTER → 2023-02-25 09:44 | Outpatient (BNVA) | payer OTHER, SELFPAY | PROVIDERS: Visit Provider Dietitian, Registered | DX: E66.01 Morbid (severe) obesity due to excess calories (principal); E11.65 Type 2 diabetes mellitus with hyperglycemia; K76.0 Fatty (change of) liver, not elsewhere classified; R16.2 Hepatomegaly with splenomegaly, not elsewhere classified; D64.9 Anemia, unspecified; E50.9 Vitamin A deficiency, unspecified; E51.9 Thiamine deficiency, unspecified; E55.9 Vitamin D deficiency, unspecified; Z68.39 Body mass index [BMI] 39.0-39.9, adult; Z79.85 Long-term (current) use of injectable non-insulin antidiabetic drugs; Z79.84 Long term (current) use of oral hypoglycemic drugs; Z71.3 Dietary counseling and surveillance | CPT/HCPCS: 97803; 99212 ==

== ENCOUNTER 2023-02-25 12:50 | Outpatient (AMB) | payer OTHER, SELFPAY ==
--- NOTE | 2023-02-25 13:00 | A.OFFVIS_ITS ---
Intake VS Expanded 02/25/23 13:04 Height 5 ft 1 in Weight 208 lb 3.2 oz BMI 39.3 BP 149/80 H Blood Pressure Location Rt brachial Blood Pressure Position Sitting Respiratory Rate 16 Pulse 124 H Pulse Source Pulse Oximeter Temp 98.8 F Temperature Source Temporal Artery Scan Pulse Oximetry 99 Oxygen Delivery Method Room Air Body Fat 70.6 Body Fat Percentage 33.9 Free Fat Mass 137.6 Muscle Mass 130.8 Visceral Mass 7.0 Water Mass 98.8 BMR 1,906 Intake Visit Reasons: (OV) F/U SWL Allergies No Known Allergies Allergy (Verified 02/25/23 13:03) Medication List - Last Reconciled 02/25/23 by Melvina Mcclure PA-C blood sugar diagnostic (FreeStyle Lite Strips) As directed cholecalciferol (vitamin D3) 50 mcg PO DAILY dulaglutide (Trulicity) 1.5 mg subcut QWEEK glipizide 5 mg PO DAILY glipizide ER 5 mg PO DAILY lancets (FreeStyle Lancets) As directed thiamine HCl (vitamin B1) 50 mg PO DAILY vitamin A palmitate 6,000 mcg (2 x 3,000 mcg (10,000 unit)) PO DAILY 2 weeks HPI HPI Comments History of Present Illness Details This is the patients second appt for SWL. Starting weight was 237.2 lbs on 01/09/23. TBWL is 23 lbs or 9.9% TBWL. Due to uncontrolled DM and no ability to see PCP or endocrinoloigsit - patient was started on glipizide 2.5 mg then increased to 5 mg. Meal plan: 9am - Premier or Slimfast HP 12pm - same shakes 3pm - shake 6pm - weighs her food, 4 oz protien and 6 oz vegetables, no fruit No snakcing. BS - fasting 110 - 120. post parandial - 95 - 110 Exercise plan: every morning walks 1.5 hours (4 miles - 500 - 600 calories) - then walks a total of 4 hours per day. LS 3 mile videos 2-3 d/week. 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 [facility] Surgical History No pertinent past surgical history Family History Mother Hyperchloremia Hypertension Cancer of pancreas Father Hyperchloremia Hypertension Social History (Updated 01/09/23 @ 08:32 by Scottie [facility]) Alcohol intake: never Patient Tobacco Use Status: Never used Tobacco Physical Exam Vital Signs: Last Vital Signs Temp 98.8 F 02/25/23 13:04 Pulse 124 H 02/25/23 13:04 Resp 16 02/25/23 13:04 BP 149/80 H 02/25/23 13:04 Pulse Ox 99 02/25/23 13:04 Oxygen Delivery Method Room Air 02/25/23 13:04 BMI result Body Mass Index 39.3 Assessment & Plan Assessment & Plan (1) Morbid obesity: Code(s): E66.01 - Morbid (severe) obesity due to excess calories Plan: Pt has completed all pre op work up except for UGI scheduled for tomorrow. She has lost 9.9% and will be scheduled for surgical consultation with Dr Ariza for next week. No changes made to meal or exercise plans. Excellent BS control with present plan. Patient is morbidly obese and is not considered stable at this time. I spent 30minutes in total with patient reviewing/updating records, examining the patient and counseling the patient on weight management as detailed above. Will continue to send me weekly weights. (2) Diabetes mellitus: Code(s): E11.9 - Type 2 diabetes mellitus without complications (3) Fatty liver: Code(s): K76.0 - Fatty (change of) liver, not elsewhere classified (4) Hepatosplenomegaly: Code(s): R16.2 - Hepatomegaly with splenomegaly, not elsewhere classified Coding Level of Care Code Est Pt Level 4 (57193) Diagnoses Morbid obesity E66.01 Diabetes mellitus E11.9 Fatty liver K76.0 Hepatosplenomegaly R16.2
[2023-02-25 13:04] VITALS: BP 149/80; PULSE 124; RESP 16; TEMP 37.1; O2SAT 99; BMI 39.3
== END 2023-02-25 13:35 | disposition home or self-care (01) ==
PROVIDERS: Visit Provider Physician Assistant
DX: E66.01 Morbid (severe) obesity due to excess calories (principal); Z68.39 Body mass index [BMI] 39.0-39.9, adult; K76.0 Fatty (change of) liver, not elsewhere classified; R16.2 Hepatomegaly with splenomegaly, not elsewhere classified
CPT/HCPCS: 99214

== ENCOUNTER 2023-02-26 09:57 | Outpatient (REF) | payer OTHER, SELFPAY ==
--- NOTE | ~2023-02-26 | FL_ITS ---
EXAMINATION: XR FLUOROSCOPY UPPER GI WITH AIR CLINICAL INFORMATION: Morbid obesity due to excess calories, preop bariatric. COMPARISON: None TECHNIQUE: Fluoroscopic air contrast upper GI examination was performed utilizing standard techniques with thin and thick barium and effervescent granules. Numerous spot images were obtained. FINDINGS: Hypopharyngeal structures appear normal without evidence of mass or diverticulum. There was no significant cricopharyngeal achalasia. Dual and single contrast images of the esophagus demonstrate normal caliber, contour, and mucosal pattern. No evidence of stricture, mass, or ulcerations identified. Esophageal peristalsis was normal. No evidence of hiatus hernia identified. Significant gastroesophageal reflux was identified during the course the examination to the level of the thoracic inlet. Dual contrast and single contrast images of the stomach demonstrated normal contour and mucosal pattern without evidence of mass, ulceration, or other abnormality. Contrast freely passed into the gastric antrum and duodenal bulb without delay. Single and air-contrast images of the duodenal bulb demonstrate no abnormality. The duodenal sweep has a normal appearance, course, and mucosal fold appearance. The imaged proximal jejunum has a normal fold pattern and caliber. FLUOROSCOPY TIME: 3 min 44 seconds Number of Spot Images: 7 fluoroscopic image hold runs saved; 16 fluoroscopic spot images obtained. DOSE AREA PRODUCT: [id number] uGy-m2 (microgray-meter squared) FL/FL upper GI w air IMPRESSION: 1. Episodic gastroesophageal reflux present to the level of the thoracic inlet. 2. Otherwise, normal examination.
== END 2023-02-26 09:58 | disposition home or self-care (01) ==
LOC: HO.XRAY 09:57
PROVIDERS: Visit Provider Physician Assistant
DX: Z01.818 Encounter for other preprocedural examination (principal); E66.01 Morbid (severe) obesity due to excess calories; E11.9 Type 2 diabetes mellitus without complications; D64.9 Anemia, unspecified
CPT/HCPCS: 74246

== ENCOUNTER → 2023-02-26 09:59 | Outpatient (BNV) | payer OTHER, SELFPAY | PROVIDERS: Visit Provider Radiology Diagnostic Radiology | DX: E66.01 Morbid (severe) obesity due to excess calories (principal) | CPT/HCPCS: 74246 ==

== ENCOUNTER 2023-03-03 10:30 | Outpatient (AMB) | payer OTHER, SELFPAY ==
--- NOTE | 2023-03-03 10:45 | MHC.OFFVISWM ---
Intake VS Expanded 03/03/23 10:48 BP 150/81 H Blood Pressure Location Rt brachial Blood Pressure Position Sitting Pulse 105 H Pulse Source Pulse Oximeter Temp 97.6 F Temperature Source Temporal Artery Scan Pulse Oximetry 97 Oxygen Delivery Method Room Air Height 5 ft 1 in Weight 207 lb 12.8 oz BMI 39.3 Body Fat % 33.2 Body Fat Mass 69.0 Fat Free Mass 138.6 Visceral Fat Rating 7.0 Body Water % 48.0 Body Water Mass 99.6 Muscle Mass/Score 131.6 Basal Metabolic Rate/Score 1,918 Intake Visit Reasons: (OV) F/U SWL Allergies No Known Allergies Allergy (Verified 03/03/23 10:46) HPI HPI Comments History of Present Illness Details The patient is a 27-year-old woman with a lifelong struggle with obesity in the related comorbidities of type 2 diabetes, fatty liver and hepatosplenomegaly who is interested in surgical weight loss. She entered the SWL program 01/09/23 with weight of 231.1 lb/BMI 43.7. 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 She presented with hemoglobin A1c of 9.7. Her blood glucose control is better now that she started on glyburide. Patient presents today at a weight of 207.8 lb/BMI 39.3 and is congratulated on her ongoing healthy lifestyle changes. She is interested in a laparoscopic sleeve gastrectomy. She has noted engagement in online Education regarding sleeve and bypass in the case of obesity and diabetes. She notes that she is leaning towards sleeve gastrectomy. 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 The importance of control was reviewed and the patient will be using a Nova ring within parameters to minimize risks of DVT. GERRY 2 ESS 3 GERD 0 QOL 87 Meal plan: 9am - Premier or Slimfast HP 12pm - same shakes 3pm - shake 6pm - weighs her food, 4 oz protien and 6 oz vegetables, no fruit No snacking. BS - fasting 110 - 120. post parandial - 95 - 110 Exercise plan: every morning walks 1.5 hours (4 miles - 500 - 600 calories) - then walks a total of 4 hours per day. LS 3 mile videos 2-3 d/week. TBP 2-3 d/wk PFSH Surgical History No pertinent past surgical history Family History Mother Hyperchloremia Hypertension Cancer of pancreas Father Hyperchloremia Hypertension Social History Alcohol intake: never Patient Tobacco Use Status: Never used Tobacco Review of Systems Const All systems reviewed & are unremarkable except as noted in HPI and below Reports as per HPI Physical Exam Vital Signs: Last Vital Signs Temp 97.6 F 03/03/23 10:48 Pulse 105 H 03/03/23 10:48 BP 150/81 H 03/03/23 10:48 Pulse Ox 97 03/03/23 10:48 Oxygen Delivery Method Room Air 03/03/23 10:48 BMI result Body Mass Index 39.3 On exam, the patient is anicteric and nontoxic She is in no acute respiratory distress She has predominant centripetal obesity Results Reviewed Results Reviewed: Labs 01/09/23 Hemoglobin 12.7 N/N, wbc 6.9, Plts 256K BUN 13, creatinine 0.71 AST is elevated at 64, ALT elevated at 82, alkaline phosphatase normal at 52, total bilirubin normal HbA1C elevated at 9.7; Glc 253 CRP 0.92 Fe low BUN 13, Cr 0.71 Lytes wnl Insulin elevated at 54 Diagnostic imaging 01/30/23 Abd U/S & elastography: Hepatosplenomegaly and NAFLD UGI No HH, GERD noted CXR NAD Cardiolite stress test Nml Assessment & Plan Assessment & Plan (1) Morbid obesity: Code(s): E66.01 - Morbid (severe) obesity due to excess calories (2) Hepatosplenomegaly: Code(s): R16.2 - Hepatomegaly with splenomegaly, not elsewhere classified (3) Diabetes mellitus: Code(s): E11.9 - Type 2 diabetes mellitus without complications (4) Fatty liver: Code(s): K76.0 - Fatty (change of) liver, not elsewhere classified (5) Anemia: Code(s): D64.9 - Anemia, unspecified (6) Adjustment disorder with depressed mood: Code(s): F43.21 - Adjustment disorder with depressed mood Plan The patient is congratulated on the healthy lifestyle changes regarding diet, exercise and weight loss. Options regarding medical management and bariatric surgery including sleeve gastrectomy and gastric bypass were discussed. The patient is interested in sleeve gastrectomy and was advised to educate herself regarding obesity and poorly controlled type 2 diabetes is there are some dated that endorse gastric bypass which has longer term risk and complication rate by comparison to sleeve. The patient's hepatosplenomegaly was discussed. Her elevated hemoglobin A1c was discussed and the patient is continuing on her current meal plan. No changes were made and she will continue to follow the diet and work towards exercising more and follow up with me at the end of March. A repeat abdominal ultrasound to assess the patient's hepatosplenomegaly may be required and a repeat hemoglobin A1c will be in order given the significant prior HbA1C elevation documented. The inherent risks of bariatric surgery including bleeding, possible need for blood transfusion or reoperation, weight regain, risk of DVT and PE that could be fatal were all discussed. Incomplete resolution of type 2 diabetes was also discussed with the patient. Patient seems to understand her options. Importance of help with childcare in the postoperative period was reviewed. Family planning/contraception and the perioperative. In out to 18 months was also discussed. Patient's questions seemed to be satisfactorily answered. Coding Level of Care Code Est Pt Level 4 (14809) Diagnoses Morbid obesity E66.01 Hepatosplenomegaly R16.2 Diabetes mellitus E11.9 Fatty liver K76.0 Anemia D64.9 Adjustment disorder with depressed mood F43.21
[2023-03-03 10:48] VITALS: BP 150/81; PULSE 105; TEMP 36.4; O2SAT 97; BMI 39.3
== END 2023-03-03 11:38 | disposition home or self-care (01) ==
PROVIDERS: Visit Provider Surgery
DX: E66.01 Morbid (severe) obesity due to excess calories (principal); Z68.39 Body mass index [BMI] 39.0-39.9, adult; E11.9 Type 2 diabetes mellitus without complications; K76.0 Fatty (change of) liver, not elsewhere classified; D64.9 Anemia, unspecified; F43.21 Adjustment disorder with depressed mood
CPT/HCPCS: 99214

== ENCOUNTER → 2023-03-03 10:30 | Outpatient (BNVA) | payer OTHER, SELFPAY | PROVIDERS: Visit Provider Surgery | DX: E66.01 Morbid (severe) obesity due to excess calories (principal); Z68.39 Body mass index [BMI] 39.0-39.9, adult; R16.2 Hepatomegaly with splenomegaly, not elsewhere classified; E11.9 Type 2 diabetes mellitus without complications; K76.0 Fatty (change of) liver, not elsewhere classified; D64.9 Anemia, unspecified; F43.21 Adjustment disorder with depressed mood | CPT/HCPCS: 99212 ==

== ENCOUNTER 2023-04-03 10:27 | Outpatient (REF) | payer OTHER, SELFPAY ==
--- NOTE | ~2023-04-03 | US_ITS ---
EXAMINATION: US COMPLETE ABDOMEN WITH LIVER ELASTOGRAPHY CLINICAL INFORMATION: Obesity COMPARISON: Previous exam January 2023 TECHNIQUE: Real-time imaging of the abdominal viscera. Noninvasive ultrasound liver fibrosis assessment is performed using Georgina ElastPQ point quantification shear wave elastography (2D-SWE) with a C5-2 MHz transducer. Multiple elastography samples are obtained. FINDINGS: PANCREAS: Normal. ABDOMINAL AORTA: The proximal, middle, and distal aortic segments are normal in caliber. INFERIOR VENA CAVA: Visualized portions are normal. LIVER: Liver echotexture is increased. The liver is enlarged. The liver is normal in contour. No focal lesion or intrahepatic biliary duct dilatation. The right lobe measures 21 cm in length. The left lobe measures 11 cm in length. Previous 19 cm and 11 cm. Portal flow is normal/hepatopedal Shear wave liver elastography median stiffness is 1.6 m/s (reference: normal median stiffness is 1.3 m/s or less). Previous 1.3 m/s. IQR/median stiffness to assess sampling precision is 0.08 (reference: good quality data set is IQR/median stiffness of 0.15 or less). GALLBLADDER: New small echogenic density adjacent to the gallbladder wall that does not move or shadow questionable for small polyp versus of adherent nonmobile shadowing stone or sludge. This measures 4 x 2 x 4 mm. COMMON BILE DUCT: Normal in caliber measuring 0.3 cm in diameter. RIGHT KIDNEY: Normal. No hydronephrosis. No renal calculi or focal parenchymal lesions. The kidney measures 12 cm in maximum dimension. LEFT KIDNEY: Normal. No hydronephrosis. No renal calculi or focal parenchymal lesions. The kidney measures 12 cm in maximum dimension. SPLEEN: Slightly enlarged. The spleen measures 13 cm in maximum dimension unchanged from previous exam. FREE FLUID: None. US/US abdomen comp w elastography IMPRESSION: 1. Impression: Slightly enlarged echogenic liver. Differential would include fatty infiltration and hepatocellular disease. Mild splenomegaly. These findings are similar to January 2023 exam. New echogenic density adjacent to the gallbladder wall questionable for a small polyp versus adherent nonshadowing stone or sludge. 2. Liver elastography: Adequate liver sampling. In the absence of other known clinical signs, rules out compensated advanced chronic liver disease. REFERENCE: Society of Radiologists in Ultrasound Liver Stiffness Thresholds (2020): LIVER STIFFNESS THRESHOLDS: *Liver Stiffness equal or less than 1.3 m/s: High probability of being normal. *Liver Stiffness less than 1.7 m/s: In the absence of other known clinical signs, rules out compensated advanced chronic liver disease. *Liver Stiffness 1.7-2.1 m/s: Suggestive of compensated advanced chronic liver disease but need further test for confirmation. *Liver Stiffness over 2.1 m/s: Rules in compensated advanced chronic liver disease. *Liver Stiffness over 2.4 m/s: Suggestive of clinically significant portal hypertension. QUALITY OF DATA SET: *IQR/Median value equal or less than 0.15 implies a quality data set. *IQR/Median value over 0.15 implies a poor quality data set. SIGNIFICANT CHANGE FROM PRIOR EXAM: Significant change if liver stiffness measurement is 10% or greater from prior exam. OTHER CONSIDERATIONS: The stage of liver fibrosis may be overestimated in the setting of acute hepatitis, liver inflammation, elevated liver function tests, hepatic vascular congestion, obstructive cholestasis, non-fasting state, and infiltrative diseases such as amyloidosis and lymphoma. In some patients with NAFLD, the liver stiffness thresholds for compensated advanced chronic liver disease may be lower. In causes other than viral hepatitis and NAFLD, liver stiffness thresholds are not well established.
== END 2023-04-03 10:28 | disposition home or self-care (01) ==
LOC: HO.US 10:27
PROVIDERS: Visit Provider Surgery
DX: E66.01 Morbid (severe) obesity due to excess calories (principal); E11.9 Type 2 diabetes mellitus without complications; R16.2 Hepatomegaly with splenomegaly, not elsewhere classified; K76.0 Fatty (change of) liver, not elsewhere classified
CPT/HCPCS: 76705; 76981

== ENCOUNTER 2023-04-06 10:57 | Outpatient (REF) | payer OTHER, SELFPAY ==
[2023-04-06 11:51] LABS: MANUAL DIFF FLAG NO
[2023-04-06 12:19] LABS: Basophils Absolute Auto 0.1 X10*3/uL (0.0-0.2); Basophils Percent Auto 0.6 % (0-2); Eosinophils Absolute Auto 0.2 X10*3/uL (0.0-0.4); Eosinophils Percent Auto 1.5 % (0-4); Hematocrit 40.4 % (37.0-47.0); Hemoglobin 12.2 g/dl (12.0-16.0); Imm Gran Abs Auto 0.05 X10*3/uL (0.00-0.03); Imm Gran Pct Auto 0.5 % (0.0-0.4); Lymphocytes Percent Auto 18.6 % (20-40); Mean Corpuscular HGB Conc 30.2 g/dl (31.0-35.0); Mean Corpuscular Hemoglobin 23.5 pg (27.0-33.0); Mean Corpuscular Volume 77.7 fL (80.0-98.0); Mean Platelet Volume 11.5 fL (9.4-12.3); Monocytes Absolute Auto 0.9 X10*3/uL (0.1-1.2); Monocytes Percent Auto 8.2 % (2-11); Neutrophils Absolute Auto 7.7 x10*3/uL (2.0-8.3); Neutrophils Percent Auto 70.6 % (45-73); Platelet Count 299 X10*3/uL (160-400); Red Cell Distribution Width 14.5 % (11.0-16.0); White Blood Count 10.9 X10*3/uL (4.8-10.8)
[2023-04-06 12:30] LABS: Estimated Average Glucose 128 mg/dL; Hemoglobin A1c % 6.1 % (<6.0)
[2023-04-06 12:58] LABS: Alanine Aminotransferase 25 U/L (0-31); Albumin Level 4.4 g/dL (3.5-5.0); Alkaline Phosphatase 49 U/L (39-117); Anion Gap 10 (12-20); Aspartate Amino Transferase 25 U/L (5-31); Bilirubin Total 0.5 mg/dL (0.0-1.0); Blood Urea Nitrogen 14 mg/dL (9-16); Calcium 9.7 mg/dL (8.4-10.2); Carbon Dioxide 29 mmol/L (22-29); Chloride 104 mmol/L (96-108); Estimated Glomerular Filt Rate > 60; Glucose Random 79 mg/dL (60-115); Potassium 4.2 mmol/L (3.3-5.1); Sodium 139 mmol/L (135-145); Total Protein 9.1 g/dL (6.5-8.0)
== END 2023-04-06 10:58 | disposition home or self-care (01) ==
LOC: HO.LAB 10:57
PROVIDERS: Visit Provider Surgery
DX: E66.01 Morbid (severe) obesity due to excess calories (principal); Z68.39 Body mass index [BMI] 39.0-39.9, adult; E11.9 Type 2 diabetes mellitus without complications; R16.2 Hepatomegaly with splenomegaly, not elsewhere classified; K76.0 Fatty (change of) liver, not elsewhere classified; F43.21 Adjustment disorder with depressed mood
CPT/HCPCS: 36415; 80053; 83036; 84134; 85025; 99212

== ENCOUNTER 2023-04-06 10:57 | Outpatient (AMB) | payer OTHER, SELFPAY ==
--- NOTE | 2023-04-06 11:00 | MHC.OFFVISWM ---
Intake VS Expanded 04/06/23 11:08 BP 144/60 H Blood Pressure Location Rt brachial Pulse 100 Pulse Source Pulse Oximeter Temp 98.1 F Temperature Source Tympanic Pulse Oximetry 96 Oxygen Delivery Method Room Air Height 5 ft 1 in Weight 206 lb 6.4 oz BMI 39.0 Body Fat % 36.3 Body Fat Mass 75.0 Fat Free Mass 131.4 Visceral Fat Rating 8.0 Body Water % 45.8 Body Water Mass 94.6 Muscle Mass/Score 124.8 Basal Metabolic Rate/Score 1,834 Intake Visit Reasons: (OV) F/U SWL Allergies No Known Allergies Allergy (Verified 04/06/23 11:11) HPI HPI Comments History of Present Illness Details The patient is a 27-year-old woman with a lifelong struggle with obesity in the related comorbidities of type 2 diabetes, fatty liver and hepatosplenomegaly who is interested in surgical weight loss. She entered the SWL program 01/09/23 with weight of 231.1 lb/BMI 43.7. 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 She presented with hemoglobin A1c of 9.7. Her blood glucose control is better now that she started on glyburide. Patient presents today at a weight of 206.4 lb/BMI 39.0 which is 1 lb weight loss since her last visit 03/03/23. The pt became tearful this morning noting her mom is not doing well with her metastatic pancreatic cancer (the patient states her mother has known hepatic Mets and progression of the primary) & the pt believes her binge-eating is relapsing; the pt notes she's not following any meal plan, is embarrassed & doesn't know what to do. She is interested in a laparoscopic sleeve gastrectomy. She has noted engagement in online education regarding sleeve and bypass in the case of obesity and diabetes. She notes that she is leaning towards sleeve gastrectomy. 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 The importance of control was reviewed and the patient will be using a Nova ring within parameters to minimize risks of DVT. GERRY 2 ESS 3 GERD 0 QOL 87 Meal plan: 9am - Premier or Slimfast HP 12pm - same shakes 3pm - shake 6pm - weighs her food, 4 oz protein and 6 oz vegetables, no fruit No snacking. BS - fasting 110 - 120. post prandial - 95 - 110 Exercise plan: every morning walks 1.5 hours (4 miles - 500 - 600 calories) - then walks a total of 4 hours per day. LS 3 mile videos 2-3 d/week. TBP 2-3 d/wk PFS Surgical History No pertinent past surgical history Family History Mother Hyperchloremia Hypertension Cancer of pancreas Father Hyperchloremia Hypertension Social History Alcohol intake: never Patient Tobacco Use Status: Never used Tobacco Review of Systems Const All systems reviewed & are unremarkable except as noted in HPI and below Physical Exam On exam, the patient is anicteric and nontoxic The patient is tearful at times She is in no acute respiratory distress She has predominant centripetal obesity Results Reviewed Results Reviewed: Labs 01/09/23 Hemoglobin 12.7 N/N, wbc 6.9, Plts 256K BUN 13, creatinine 0.71 AST is elevated at 64, ALT elevated at 82, alkaline phosphatase normal at 52, total bilirubin normal HbA1C elevated at 9.7; Glc 253 CRP 0.92 Fe low BUN 13, Cr 0.71 Lytes wnl Insulin elevated at 54 Diagnostic imaging 01/30/23 Abd U/S & elastography: Hepatosplenomegaly and NAFLD UGI No HH, GERD noted CXR NAD Cardiolite stress test Nml Assessment & Plan Assessment & Plan (1) Morbid obesity: Code(s): E66.01 - Morbid (severe) obesity due to excess calories (2) Diabetes mellitus: Code(s): E11.9 - Type 2 diabetes mellitus without complications (3) Hepatosplenomegaly: Code(s): R16.2 - Hepatomegaly with splenomegaly, not elsewhere classified (4) Fatty liver: Code(s): K76.0 - Fatty (change of) liver, not elsewhere classified (5) Adjustment disorder with depressed mood: Code(s): F43.21 - Adjustment disorder with depressed mood Plan I have sent a copy of today's note to [facility] in [facility] and scheduled an appointment for the patient. Patient notes feelings of helplessness as her mother's cancer progressive and knows that she not following a meal plan at this point. She is trying to exercise but notes that she needs support. I have ordered nonfasting labs to assess the patient's previously diagnosed elevated hemoglobin A1c and will see the patient back in 2 weeks; in discussion of the patient's meal plan, we will likely transition to the celebrate rebuild at her follow-up appointment but the patient needs emotional/personal support. We discussed the importance of self-care at times likely this and the patient seems to understand. Orders: Orders Complete Blood Count Auto Diff Today E11.9 - Type 2 diabetes mellitus without complications, E66.01 - Morbid (severe) obesity due to excess calories, F43.21 - Adjustment disorder with depressed mood, K76.0 - Fatty (change of) liver, not elsewhere classified, R16.2 - Hepatomegaly with splenomegaly, not elsewhere classified Prealbumin Today E11.9 - Type 2 diabetes mellitus without complications, E66.01 - Morbid (severe) obesity due to excess calories, F43.21 - Adjustment disorder with depressed mood, K76.0 - Fatty (change of) liver, not elsewhere classified, R16.2 - Hepatomegaly with splenomegaly, not elsewhere classified Comprehensive Met. Panel Today E11.9 - Type 2 diabetes mellitus without complications, E66.01 - Morbid (severe) obesity due to excess calories, F43.21 - Adjustment disorder with depressed mood, K76.0 - Fatty (change of) liver, not elsewhere classified, R16.2 - Hepatomegaly with splenomegaly, not elsewhere classified Hemoglobin A1c Today E11.9 - Type 2 diabetes mellitus without complications, E66.01 - Morbid (severe) obesity due to excess calories, F43.21 - Adjustment disorder with depressed mood, K76.0 - Fatty (change of) liver, not elsewhere classified, R16.2 - Hepatomegaly with splenomegaly, not elsewhere classified Coding Level of Care Code Est Pt Level 4 (85454) Diagnoses Morbid obesity E66.01 Diabetes mellitus E11.9 Hepatosplenomegaly R16.2 Fatty liver K76.0 Adjustment disorder with depressed mood F43.21
[2023-04-06 11:08] VITALS: BP 144/60; PULSE 100; TEMP 36.7; O2SAT 96; BMI 39.0
== END 2023-04-06 11:33 | disposition home or self-care (01) ==
PROVIDERS: Visit Provider Surgery
DX: E66.01 Morbid (severe) obesity due to excess calories (principal); Z68.39 Body mass index [BMI] 39.0-39.9, adult; E11.9 Type 2 diabetes mellitus without complications; R16.2 Hepatomegaly with splenomegaly, not elsewhere classified; K76.0 Fatty (change of) liver, not elsewhere classified; F43.21 Adjustment disorder with depressed mood
CPT/HCPCS: 99214

== ENCOUNTER 2023-05-21 13:00 | Outpatient (AMB) | payer OTHER, SELFPAY ==
--- NOTE | 2023-05-21 12:52 | A.OFFVIS_ITS ---
Intake VS Expanded 05/21/23 13:08 Height 5 ft 1 in Weight 212 lb BMI 40.1 Intake Visit Reasons: (TV) F/U SWL Allergies No Known Allergies Allergy (Verified 04/06/23 11:11) Medication List - Last Reconciled 05/21/23 by Melvina Mcclure PA-C blood sugar diagnostic (FreeStyle Lite Strips) As directed cholecalciferol (vitamin D3) 50 mcg PO DAILY 90 days dulaglutide (Trulicity) 3 mg subcut QWEEK lancets (FreeStyle Lancets) As directed thiamine HCl (vitamin B1) 50 mg PO DAILY 90 days HPI HPI Comments History of Present Illness Details [facility] follow up, [employer] weight of 231.1 in December, has had appts with Dr Ariza x 2. HgbA1C repeated in April went from 9.7 - 6.1 in our program with addition of glibizide.TBWL is 19.1 lbs or 8.3%. Her mother is having serious health problems and patient has been stress eating due to all of this. Patient got discouraged with the wait for surgery. Has been sick URI symptoms recently and has reverted back to poor eating habits, binge eating fast food, and no appetite. Saw supervisor dental laboratory last week - will stop glipizide and increase Trulicity to 3mg. Because her BS was dropping to 60- 70 in pm's. Meal plan: not on track.Has Premier And Slim Fast HP RTD shakes at home. Had stopped bars. Exercise : Had been walking 4-6 miles per day, now has treadmill at home. Jogging an hour 3-4 d/week- avitia 500 - 700 calories. speed .2 - 3.8, can not change incline. Walk on it for 3 d/ week x 1 hour - 400 - 500 calories. 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 [facility] Surgical History No pertinent past surgical history Family History Mother Hyperchloremia Hypertension Cancer of pancreas Father Hyperchloremia Hypertension Social History Alcohol intake: never Patient Tobacco Use Status: Never used Tobacco Assessment & Plan Assessment & Plan (1) Morbid obesity: Code(s): E66.01 - Morbid (severe) obesity due to excess calories Plan: Plan to restart. Wakes at 6:30am bed at 10 pm, dinner is at about 5 pm. Ready to make the following meal plan changes. 1. No more fast food. 2. Will stop coffee 3. Shakes at 9 am, 12 pm shake, 3pm 2 hb eggs (or a bar), 6pm - 8 forks of protein and 10 forks of vegetable 4. When she purchases more shakes will switch to Celebrate powder mix with 8 oz water or UAM. Exercise - burning at least 2,000 /week. 7 day/week. Will continue to check BS's. Will have follow ups with Ksenia, text me her weights and questions weekly. Next appt with me in 3 weeks. Patient is still morbidly obese and is not considered stable at this time. I spent 30 minutes in total speaking with the patient via video conference counseling , reviewing records and charting in patients chart. . (2) Diabetes mellitus: Code(s): E11.9 - Type 2 diabetes mellitus without complications Plan: meds per supervisor dental laboratory (3) Fatty liver: Code(s): K76.0 - Fatty (change of) liver, not elsewhere classified Plan: weight loss (4) Hepatosplenomegaly: Code(s): R16.2 - Hepatomegaly with splenomegaly, not elsewhere classified Plan: L side 11 cm Telehealth Telehealth Location of provider rendering services: practice address Location of patient: address on file Patient Identification confirmed using: Name, : Yes Telehealth method: voice only Patient verbally consented to treatment: Yes Patient verbally consented to billing insurance company: Yes Patient informed of any privacy concerns related to visit: Yes Coding Level of Care Code Tele Est Pt Level 4 (62404) Diagnoses Morbid obesity E66.01 Diabetes mellitus E11.9 Fatty liver K76.0 Hepatosplenomegaly R16.2
[2023-05-21 13:08] VITALS: BMI 40.1
== END 2023-05-21 13:34 | disposition home or self-care (01) ==
LOC: HO.HBS 13:33
PROVIDERS: PCP Physician Assistant; Visit Provider Physician Assistant
DX: E66.01 Morbid (severe) obesity due to excess calories (principal); E11.9 Type 2 diabetes mellitus without complications; K76.0 Fatty (change of) liver, not elsewhere classified; R16.2 Hepatomegaly with splenomegaly, not elsewhere classified
CPT/HCPCS: 99214

== ENCOUNTER → 2023-05-21 13:00 | Outpatient (BNVA) | payer OTHER, SELFPAY | PROVIDERS: PCP Physician Assistant; Visit Provider Physician Assistant ==

== ENCOUNTER 2023-05-27 10:04 | Outpatient (AMB) | payer OTHER, SELFPAY ==
--- NOTE | 2023-05-27 10:02 | MHC.AMNUTRGE ---
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 she has been trying to spend as much time with her as possible . Her mother has been cooking their traditional [place] cuisine mostly carbs and pt states Im eating it because I know I wont get it again . we discussed how enjoying these foods is a celebration of her mother. Previous weight loss methods attempted Several attempts but would stall and have a hard time pushing through it. Dietary counseling reduction Diagnosis Nutrition problem #1 overweight/obesity As related to (etiology) #1 excess energy intake and physical inactivity As evidenced by (sign/symptom) #1 high BMI Monitoring/Goals Nutrition problem monitoring total energy intake, level of knowledge/skill, total PRO intake, total CHO intake, weight and oral fluids Outcome progress progressing Learning/Education Readiness to learn excellent Stages of change action Educational materials provided Yes Most Recent Diabetes Results: Creatinine 0.72 mg/dL (0.5-1.4) 04/06/23 Blood Urea Nitrogen 14 mg/dL (9-16) 04/06/23 Sodium 139 mmol/L (135-145) 04/06/23 Potassium 4.2 mmol/L (3.3-5.1) 04/06/23 Chloride 104 mmol/L (96-108) 04/06/23 Carbon Dioxide 29 mmol/L (22-29) 04/06/23 Calcium 9.7 mg/dL (8.4-10.2) 04/06/23 AST 25 U/L (5-31) 04/06/23 ALT 25 U/L (0-31) 04/06/23 Total Protein 9.1 g/dL (6.5-8.0) H 04/06/23 Albumin 4.4 g/dL (3.5-5.0) 04/06/23 [facility] Surgical History No pertinent past surgical history Family History Mother Hyperchloremia Hypertension Cancer of pancreas Father Hyperchloremia Hypertension Social History Alcohol intake: never Patient Tobacco Use Status: Never used Tobacco Assessment & Plan Assessment & Plan (1) Morbid obesity: Code(s): E66.01 - Morbid (severe) obesity due to excess calories Plan Pt will continue with appts in our program but will not pursue bariatric intervention at this time. when she is ready, she will be a great candidate. Telehealth Telehealth Location of provider rendering services: practice address Location of patient: address on file Patient Identification confirmed using: Name, : Yes Telehealth method: video Patient verbally consented to treatment: Yes Patient verbally consented to billing insurance company: Yes Patient informed of any privacy concerns related to visit: Yes Minutes spent on Phone/Video with Pt.: 20 Coding Level of Care Code Nutr Indiv Subseq ([id number]) Diagnoses Morbid obesity E66.01 Time Spent (min) 20
== END 2023-05-27 10:20 | disposition home or self-care (01) ==
LOC: HO.HBS 10:04
PROVIDERS: PCP Physician Assistant; Visit Provider Dietitian, Registered
DX: E66.01 Morbid (severe) obesity due to excess calories (principal)

== ENCOUNTER → 2023-05-27 10:04 | Outpatient (BNVA) | payer OTHER, SELFPAY | PROVIDERS: PCP Physician Assistant; Visit Provider Dietitian, Registered | DX: E66.01 Morbid (severe) obesity due to excess calories (principal) | CPT/HCPCS: 97803 ==

== ENCOUNTER 2023-07-30 10:36 | Outpatient (AMB) | payer OTHER, SELFPAY ==
--- NOTE | 2023-07-30 10:28 | A.OFFVIS_ITS ---
Intake VS Expanded 07/30/23 11:02 BP 141/78 H Blood Pressure Location Rt brachial Blood Pressure Position Sitting Pulse 95 Pulse Source Pulse Oximeter Temp 97.9 F Temperature Source Temporal Artery Scan Pulse Oximetry 97 Oxygen Delivery Method Room Air Height 5 ft 1 in Weight 215 lb 3.2 oz BMI 40.7 Body Fat % 38.0 Body Fat Mass 81.8 Fat Free Mass 133.4 Visceral Fat Rating 9.0 Body Water % 44.6 Body Water Mass 96.0 Muscle Mass/Score 126.6 Basal Metabolic Rate/Score 1,868 Intake Visit Reasons: (OV) F/U SWL Allergies No Known Allergies Allergy (Verified 07/30/23 10:57) Medication List - Last Reconciled 07/30/23 by KRISTIE Smith-Cesia blood sugar diagnostic (FreeStyle Lite Strips) As directed cholecalciferol (vitamin D3) 50 mcg PO DAILY 90 days dulaglutide (Trulicity) 4.5 mg subcut QWEEK lancets (FreeStyle Lancets) As directed HPI HPI Comments History of Present Illness Details SWL follow up. She started our program in December 2022 at 231.2 lbs and was diagnosed with Type II DM, she was started on glyburide by us and A1C dropped from 9.7 to 6.1. She stopped all appts in Apr 2023 due to some family issues with TBWL of 24.8 lbs or 10.7 % and has restarted today with a 3 lb weigh gain. TBWL is 16 lbs or 6.9%. Saw endocrine yesterday, KRISTIE Montgomery - told to stop glyburide and increased Trulicity ot 4.5 mg. Blood work drawn no result yet. Meal plan: restarted 2 weeks ago coffee with condensed milk 9am - Isopure powder 20 grams with water 12pm - same shake 3pm - same shake 6pm - 4 oz - (8 forks) protein and 6 oz ( 12 forks) vegetables Exercise - 45 - 60minutes on treadmill - speed 2.8 (top speed for her walking pad) , no incline on machine - calories 230 calories. 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 [facility] Surgical History No pertinent past surgical history Family History Mother Hyperchloremia Hypertension Cancer of pancreas Father Hyperchloremia Hypertension Social History Alcohol intake: never Patient Tobacco Use Status: Never used Tobacco Assessment & Plan Assessment & Plan (1) Morbid obesity: Code(s): E66.01 - Morbid (severe) obesity due to excess calories Plan: Pt is now ready to resume our SWL porgram for bariatric surgery. TBWL is 6.9%, needs to loose another 7 lbs. No changes tomeal plan, pre op work up completed. Exercise - will do a combination of walking outisde on good weather days and indoor videos to burn 400 calories per day 6 days per week. Will now get gym membership and will let me know for instructions for work outs. Next appt with Shanda Garcia is aware. Will text me weekly weights until has appt with Dr Tavera . Patient is morbidly obese and is not considered stable at this time. I spent 30 minutes in total with patient reviewing/updating records, examining the patient and counseling the patient on weight management as detailed above. (2) Diabetes mellitus: Code(s): E11.9 - Type 2 diabetes mellitus without complications (3) Fatty liver: Code(s): K76.0 - Fatty (change of) liver, not elsewhere classified (4) Hepatosplenomegaly: Code(s): R16.2 - Hepatomegaly with splenomegaly, not elsewhere classified Plan see above Coding Level of Care Code Est Pt Level 4 (68606) Diagnoses Morbid obesity E66.01 Diabetes mellitus E11.9 Fatty liver K76.0 Hepatosplenomegaly R16.2
[2023-07-30 11:02] VITALS: BP 141/78; PULSE 95; TEMP 36.6; O2SAT 97; BMI 40.7
== END 2023-07-30 11:24 | disposition home or self-care (01) ==
PROVIDERS: PCP Physician Assistant; Visit Provider Physician Assistant
DX: E66.01 Morbid (severe) obesity due to excess calories (principal); Z68.41 Body mass index [BMI] 40.0-44.9, adult; E11.9 Type 2 diabetes mellitus without complications; K76.0 Fatty (change of) liver, not elsewhere classified; R16.2 Hepatomegaly with splenomegaly, not elsewhere classified
CPT/HCPCS: 99214

== ENCOUNTER → 2023-07-30 10:36 | Outpatient (BNVA) | payer OTHER, SELFPAY | PROVIDERS: PCP Physician Assistant; Visit Provider Physician Assistant | DX: E66.01 Morbid (severe) obesity due to excess calories (principal); E11.9 Type 2 diabetes mellitus without complications; K76.0 Fatty (change of) liver, not elsewhere classified; R16.2 Hepatomegaly with splenomegaly, not elsewhere classified; Z68.41 Body mass index [BMI] 40.0-44.9, adult | CPT/HCPCS: 99212 ==

== ENCOUNTER 2023-08-17 08:00 | Outpatient (AMB) | payer OTHER, SELFPAY ==
--- NOTE | 2023-08-17 12:08 | MHC.OFFVISWM ---
Intake Intake Visit Reasons: TV Consult/Transfer Melvina Allergies No Known Allergies Allergy (Verified 08/17/23 12:08) Medication List - Last Reconciled 08/17/23 by Tawanda Borrego MD blood sugar diagnostic (FreeStyle Lite Strips) As directed cholecalciferol (vitamin D3) 50 mcg PO DAILY 90 days dulaglutide (Trulicity) 4.5 mg subcut QWEEK lancets (FreeStyle Lancets) As directed HPI TV Consult/Transfer Melvina HPI Details Start time: 11.45am, End time: 12.30pm ?I spent 30 minutes speaking with the patient on the phone plus an additional 15 minutes reviewing and updating records for a total of 45 minutes HPI Comments History of Present Illness Details Overall weight loss: 24.2lbs, or 10.43% TBWL Is doing 3 Isopure Infusions shake (ONE scoops each in water) and one meal (8 forks of protein and 10 forks of salad or vegetables) Exercise: walking outside and home videos PFSH Surgical History No pertinent past surgical history Family History (Reviewed 04/06/23 @ 11:11 by Lee Ariza MD, FACS, [facility]) Mother Hyperchloremia Hypertension Cancer of pancreas Father Hyperchloremia Hypertension Social History Alcohol intake: never Patient Tobacco Use Status: Never used Tobacco Assessment & Plan Assessment & Plan (1) Morbid obesity: Code(s): E66.01 - Morbid (severe) obesity due to excess calories Plan: 1. Plan for lap sleeve gastrectomy including upper GI endoscopy. All tests has been completed and reviewed and the patient is cleared for the surgery. ?If diaphragmatic or ventral hernias are present at time of surgery, these will be repaired laparoscopically as well. Risks and complications were discussed in detail including possible conversion to an open procedure, anastomotic leak, bleeding requiring transfusion, small bowel obstruction, , DVT and pulmonary embolism, cardiac, or pulmonary complications, as oil heaterman complications such as anastomotic ulcer, insufficient weight loss and vitamin deficiencies. I emphasized the importance of close follow-up, adherence to instructions and good communication. So far she has proven to be an excellent communicator and very compliant with all our directions accomplishing a great weight loss. I believe that she is an excellent candidate and she is ready. 2. The patient participated in a structured preoperative lifestyle intervention program supervised by a physician the 7 months preceding the surgical procedure. The lifestyle intervention included a structured nutritional plan with a specific daily protein intake goal, an exercise plan with a 2000 calorie burn weekly goal, weekly behavior modification guidance and completion of eight 1-hour online nutritional classes and passing successfully the corresponding quizzes. Adherence to preoperative care plan was demonstrated by completing an extensive preoperative work-up. Program participation was demonstrated by completing 6 visits with our medical team and by sharing weekly weight measurements weekly for 7 consecutive months via an approved body composition scale. Compliance to the lifestyle intervention was demonstrated by achieving a 24.2lbs weight-loss or 10.43% total body weight loss (TBWL). No medications were used to achieve this weight loss. In our published experience an over 7% preoperative TBWL, achieved by meeting the diet and exercise goals of our program improves surgical outcomes, reduces the potential for surgical complications, and predicts a statistically significant higher weight loss up to 6 years postoperatively. 3. Continue with 3 Isopure Infusions shake (ONE scoops each in water) and one meal (8 forks of protein and 10 forks of salad or vegetables) 4. Please try the Zone Perfect protein bars and let me know if you lke them 5. The best choice would be to purchase a stationary bike, elliptical or treadmill at home that can track calories. Let me know if you do so I can give you an exercise plan. 6. Continue to send me weight measurements weekly on Mondays Telehealth Telehealth Location of provider rendering services: practice address Location of patient: address on file Patient Identification confirmed using: Name, : Yes Telehealth method: voice only Patient verbally consented to treatment: Yes Patient verbally consented to billing insurance company: Yes Patient informed of any privacy concerns related to visit: Yes Minutes spent on Phone/Video with Pt.: 45 Coding Level of Care Code Tele Est Pt Level 5 (70222) Diagnoses Morbid obesity E66.01 Time Spent (min) 45
== END 2023-08-17 15:08 | disposition home or self-care (01) ==
LOC: HO.HBS 08:01
PROVIDERS: PCP Physician Assistant; Visit Provider Surgery
DX: E66.01 Morbid (severe) obesity due to excess calories (principal); Z68.39 Body mass index [BMI] 39.0-39.9, adult
CPT/HCPCS: 99215

== ENCOUNTER → 2023-08-17 08:00 | Outpatient (BNVA) | payer OTHER, SELFPAY | PROVIDERS: PCP Physician Assistant; Visit Provider Surgery ==

== ENCOUNTER → 2023-08-26 08:39 | Outpatient (BNVA) | payer OTHER, SELFPAY | PROVIDERS: PCP Physician Assistant; Visit Provider Surgery ==

== ENCOUNTER 2023-08-26 15:00 | Outpatient (AMB) | payer OTHER, SELFPAY ==
--- NOTE | 2023-08-25 22:33 | MHC.OFFVISWM ---
Intake VS Expanded 08/25/23 22:34 Height 5 ft 1 in Weight 205 lb 2 oz BMI 38.8 Body Fat % 49.6 Body Fat Mass 101.7 Fat Free Mass 103.4 Visceral Fat Rating 20 Body Water % 34.6 Body Water Mass 70.9 Basal Metabolic Rate/Score 1,374 Intake Visit Reasons: TV Pre Op LSG 09/03/23 Allergies No Known Allergies Allergy (Verified 08/25/23 22:39) Medication List - Last Reconciled 08/25/23 by Tawanda Borrego MD blood sugar diagnostic (FreeStyle Lite Strips) As directed cholecalciferol (vitamin D3) 50 mcg PO DAILY 90 days dulaglutide (Trulicity) 4.5 mg subcut QWEEK lancets (FreeStyle Lancets) As directed HPI TV Pre Op LSG 09/03/23 HPI Details Start time: 2.10pm, End time: 2.30pm An additional 10 minutes were used at a different part of the day to complete this note and review patient's records. ?I spent 20 minutes speaking with the patient on the phone plus an additional 10 minutes reviewing and updating records for a total of 30 minutes HPI Comments History of Present Illness Details Overall weight loss: 26.8lbs, or 11.55% TBWL Is doing 3 Isopure Infusions shake (ONE scoops each in water) and one meal (8 forks of protein and 10 forks of salad or vegetables) Exercise: walking outside and home videos [facility] Medical History (Updated 08/26/23 @ 10:22 by Mely Montgomery RN) Hepatosplenomegaly Adjustment disorder with depressed mood Fatty liver Anemia Diabetes Surgical History No pertinent past surgical history Family History Mother Hyperchloremia Hypertension Cancer of pancreas Father Hyperchloremia Hypertension Social History Are you a primary care transition mgr to a significant other at home: No Do you presently have visiting nurse or other home services: No Alcohol intake: never Patient Tobacco Use Status: Never used Tobacco Physical Exam Vital Signs: BMI result Body Mass Index 38.8 Assessment & Plan Assessment & Plan (1) Obesity: Code(s): E66.9 - Obesity, unspecified Qualifiers: Body mass index: BMI 38.0-38.9 Obesity classification: adult class 2 (BMI 35 - 39.9) Obesity type: due to excess calories Serious obesity comorbidity presence: with serious comorbidity Qualified Code(s): E66.01 - Morbid (severe) obesity due to excess calories; Z68.38 - Body mass index [BMI] 38.0-38.9, adult Plan: 1. Plan for lap sleeve gastrectomy including upper GI endoscopy. All tests has been completed and reviewed and the patient is cleared for the surgery. ?If diaphragmatic or ventral hernias are present at time of surgery, these will be repaired laparoscopically as well. Risks and complications were discussed in detail including possible conversion to an open procedure, anastomotic leak, bleeding requiring transfusion, small bowel obstruction, , DVT and pulmonary embolism, cardiac, or pulmonary complications, as technician terminal and repeater complications such as anastomotic ulcer, insufficient weight loss and vitamin deficiencies. I emphasized the importance of close follow-up, adherence to instructions and good communication. So far she has proven to be an excellent communicator and very compliant with all our directions accomplishing a great weight loss. I believe that she is an excellent candidate and she is ready. 2. Preop prescriptions were provided and explained the purpose of each one. Need to be purchased preop. Start Pantoprazole now as you get it from the pharmacy, 1 pill per day. Sucralfate and Zofran are for after surgery as needed. 3. Bowel prep: please do 7 packets ?of Miralax mixing each one with a an 8oz glass of water, crystal light, gatorade zero, or propel ?on 09/01/23 and the same amount on 09/02/23. The Miralax you begin with one packet at a time in 8oz water or crystal light, gatorade zero, or propel ?as early in the day as you can and you do them back to back until you finish them. Continue the protein shakes during? the bowel prep. 4. Needs to purchase 1oz medicine cups . 5. Needs to purchase Children's liquid Tylenol for postop pain control. 6. Do not take the next Trulicity dose. Avoid aspirin, motrin, Advil, Aleve, Ibuprofen, Naproxyn. Tylenol is OK. 7. She needs to purchase the Celebrate 4:1 protein shakes from the hospital's gift shop. 8. Will do basic preop blood work-up any day between Thursday08/26/23 and Thursday08/28/23 fasting for 12 hours and is scheduled to see the Anesthesiologist prior to the day of surgery. 9. Check your blood sugar daily and let me know if it is over 150 or below 100. 10. Importance of adherence to postop folllow-up and recommendations was underscored and she understands that. 11. Stop food and bars as of tomorrow 08/26/23 and continue with 3 Isopure protein shakes (HALF scoop EACH in 8oz water) at 7am-9am, 10am-12pm and 1pm-3pm and TWO more Isopure protein shakes with ONE scoop EACH in 8oz of water at 4pm-6pm and 7pm-9pm 12. No soups, broths or V8 13. The patient's?medical?history has been reviewed and they are considered low risk for post op DVT and therefore DVT prophylaxis is not considered necessary. Travel after surgery was reviewed. The patient has not disclosed any travel plans during the first 30 days after surgery and they have been advised that within the first 30 days after surgery any bus, plane, train or car travel over 2 hours in duration is contraindicated due to the possibility of developing blood clots from immobility. Any travel, needs to include periods of ambulation of 10 minutes in duration every 2 hours.? Patient was instructed to discuss any plans for travel during this period with their bariatric surgeon.? 14. Please take at the day of surgery the following medications: NONE 15. Stop any control pills and don't use them for one month after surgery 16. Absolutely no smoking or vaping, or marijuana until the surgery and for at least the first 4 weeks. Only nicotine patches are allowed. 17. Send me weight measurements again on 09/03/23 the day of surgery before you go to the hospital. 18. Avoid any steroids by mouth for any reason. Let me know if someone prescribes them to you 19. These instructions supersede anything else you read in the handbook, anything you watched in videos or classes or you were told by any other provider. If there is any conflict, you follow the above instructions and nothing else. Orders: Orders TSH reflex Free T4 08/25/23 E11.9 - Type 2 diabetes mellitus without complications, E66.9 - Obesity, unspecified, K76.0 - Fatty (change of) liver, not elsewhere classified, R16.2 - Hepatomegaly with splenomegaly, not elsewhere classified Complete Blood Count Auto Diff 08/25/23 E11.9 - Type 2 diabetes mellitus without complications, E66.9 - Obesity, unspecified, K76.0 - Fatty (change of) liver, not elsewhere classified, R16.2 - Hepatomegaly with splenomegaly, not elsewhere classified Insulin 08/25/23 E11.9 - Type 2 diabetes mellitus without complications, E66.9 - Obesity, unspecified, K76.0 - Fatty (change of) liver, not elsewhere classified, R16.2 - Hepatomegaly with splenomegaly, not elsewhere classified C Reactive Protein 08/25/23 E11.9 - Type 2 diabetes mellitus without complications, E66.9 - Obesity, unspecified, K76.0 - Fatty (change of) liver, not elsewhere classified, R16.2 - Hepatomegaly with splenomegaly, not elsewhere classified Lipid Panel 08/25/23 E11.9 - Type 2 diabetes mellitus without complications, E66.9 - Obesity, unspecified, K76.0 - Fatty (change of) liver, not elsewhere classified, R16.2 - Hepatomegaly with splenomegaly, not elsewhere classified Comprehensive Met. Panel 08/25/23 E11.9 - Type 2 diabetes mellitus without complications, E66.9 - Obesity, unspecified, K76.0 - Fatty (change of) liver, not elsewhere classified, R16.2 - Hepatomegaly with splenomegaly, not elsewhere classified Prothrombin Time INR 08/25/23 E11.9 - Type 2 diabetes mellitus without complications, E66.9 - Obesity, unspecified, K76.0 - Fatty (change of) liver, not elsewhere classified, R16.2 - Hepatomegaly with splenomegaly, not elsewhere classified Type and Screen 08/25/23 E11.9 - Type 2 diabetes mellitus without complications, E66.9 - Obesity, unspecified, K76.0 - Fatty (change of) liver, not elsewhere classified, R16.2 - Hepatomegaly with splenomegaly, not elsewhere classified Partial Thromboplastin Time 08/25/23 E11.9 - Type 2 diabetes mellitus without complications, E66.9 - Obesity, unspecified, K76.0 - Fatty (change of) liver, not elsewhere classified, R16.2 - Hepatomegaly with splenomegaly, not elsewhere classified Hemoglobin A1c 08/25/23 E11.9 - Type 2 diabetes mellitus without complications, E66.9 - Obesity, unspecified, K76.0 - Fatty (change of) liver, not elsewhere classified, R16.2 - Hepatomegaly with splenomegaly, not elsewhere classified Medications: New sucralfate 10 mL PO BID 600 mL 2RF K21.9 - Gastro-esophageal reflux disease without esophagitis ondansetron Only take one every 12 hours as needed if you have nausea 4 mg PO Q12H 20 tabs 0RF nausea and vomiting R11.0 - Nausea polyethylene glycol 3350 (Miralax) Mix each packet with 8oz of water, Crystal light, or Gatorade zero, or Propel and do 7 packets on 09/01/23 and another 7 packets on 09/02/23 17 grams PO DAILY 14 ea 0RF Z01.818 - Encounter for other preprocedural examination pantoprazole 40 mg PO DAILY 90 tabs 0RF K21.9 - Gastro-esophageal reflux disease without esophagitis Telehealth Telehealth Location of provider rendering services: practice address Location of patient: address on file Patient Identification confirmed using: Name, : Yes Telehealth method: voice only Patient verbally consented to treatment: Yes Patient verbally consented to billing insurance company: Yes Patient informed of any privacy concerns related to visit: Yes Minutes spent on Phone/Video with Pt.: 30 Coding Level of Care Code Tele Est Pt Level 4 (79663) Diagnoses Class 2 severe obesity due to excess calories with serious comorbidity and body mass index (BMI) of 38.0 to 38.9 in adult E66.01; Z68.38 Body mass index: BMI 38.0-38.9 Obesity classification: adult class 2 (BMI 35 - 39.9) Obesity type: due to excess calories Serious obesity comorbidity presence: with serious comorbidity Time Spent (min) 30
[2023-08-25 22:34] VITALS: BMI 38.8
== END 2023-08-27 10:01 | disposition home or self-care (01) ==
LOC: HO.HBS 08-27 09:48
PROVIDERS: PCP Physician Assistant; Visit Provider Surgery
DX: E66.01 Morbid (severe) obesity due to excess calories (principal); Z68.38 Body mass index [BMI] 38.0-38.9, adult
CPT/HCPCS: 99214

== ENCOUNTER 2023-09-03 06:04 | Inpatient (IN) | payer OTHER, SELFPAY ==
[2023-08-26 08:39] LABS: MANUAL DIFF FLAG NO
[2023-08-26 08:51] LABS: INTERNATIONAL NORM RATIO 1.1 (0.9-1.1); Prothrombin Time 13.5 SEC (11.1-13.3)
[2023-08-26 08:52] LABS: Basophils Absolute Auto 0.1 X10*3/uL (0.0-0.2); Basophils Percent Auto 0.7 % (0-2); Eosinophils Absolute Auto 0.1 X10*3/uL (0.0-0.4); Eosinophils Percent Auto 1.5 % (0-4); Hematocrit 41.7 % (37.0-47.0); Hemoglobin 12.9 g/dl (12.0-16.0); Imm Gran Abs Auto 0.01 X10*3/uL (0.00-0.03); Imm Gran Pct Auto 0.1 % (0.0-0.4); Lymphocytes Absolute Auto 1.6 X10*3/uL (1.2-4.9); Lymphocytes Percent Auto 21.8 % (20-40); Mean Corpuscular HGB Conc 30.9 g/dl (31.0-35.0); Mean Corpuscular Hemoglobin 23.9 pg (27.0-33.0); Mean Corpuscular Volume 77.4 fL (80.0-98.0); Mean Platelet Volume 12.3 fL (9.4-12.3); Monocytes Absolute Auto 0.4 X10*3/uL (0.1-1.2); Monocytes Percent Auto 5.7 % (2-11); Neutrophils Absolute Auto 5.1 x10*3/uL (2.0-8.3); Neutrophils Percent Auto 70.2 % (45-73); Platelet Count 269 X10*3/uL (160-400); Red Blood Count 5.39 X10*6/uL (4.20-5.50); Red Cell Distribution Width 14.6 % (11.0-16.0); White Blood Count 7.3 X10*3/uL (4.8-10.8)
[2023-08-26 09:19] LABS: Estimated Average Glucose 131 mg/dL; Hemoglobin A1c % 6.2 % (<6.0)
[2023-08-26 09:24] LABS: Alanine Aminotransferase 18 U/L (0-31); Albumin Level 4.5 g/dL (3.5-5.0); Alkaline Phosphatase 45 U/L (39-117); Anion Gap 13 (12-20); Aspartate Amino Transferase 25 U/L (5-31); Bilirubin Total 0.8 mg/dL (0.0-1.0); Blood Urea Nitrogen 12 mg/dL (9-16); C Reactive Protein 0.24 mg/dL (< or = 0.50); Carbon Dioxide 25 mmol/L (22-29); Chloride 107 mmol/L (96-108); Cholesterol 127 mg/dL (<200); Estimated Glomerular Filt Rate > 60; Glucose Random 104 mg/dL (60-115); HDL Cholesterol 33 mg/dL (>40); Iron 65 mcg/dL (30-160); LDL Cholesterol Calculated 83 mg/dL (<100); Percent Iron Saturation 21 % (15-50); Potassium 3.6 mmol/L (3.3-5.1); Sodium 141 mmol/L (135-145); Total Iron Binding Capacity 315 mcg/dL (228-428); Total Protein 8.7 g/dL (6.5-8.0); Triglycerides 58 mg/dL (<150); Unsaturated Iron Binding 250 ug/dL
[2023-08-26 09:31] LABS: Ferritin 88 ng/mL (10-122); TSH reflex Free T4 1.15 uIU/mL (0.32-4.0); Vitamin D 25-OH Total 33.4 ng/mL (>30)
[2023-08-26 10:23] VITALS: BMI 38.2
[2023-08-26 10:44] LABS: Vitamin B12 715 pg/mL (200-900)
[2023-08-28 18:04] LABS: Zinc 90 mcg/dL (60-130)
[2023-08-31 01:59] LABS: Vitamin A 29 mcg/dL (38-98)
--- NOTE | 2023-09-01 15:17 | HO.ANESPROP2 ---
Documented by User: Maritza Kidd NP 09/01/23 15:19 HPI - Anesthesia Eval Consult details Narrative: 28yo F for Gastrectomy Sleeve-EGD, possible diaphragmatic hernia, possible ventral hernia, possible open Anesthesia Pre-Procedure Meds Is the patient on any of the following meds?: Dulaglutide (Trulicity) PMFSH Active Problems Active Problems: All Active Problems (Updated 08/26/23 @ 10:22 by Mely Montgomery RN) Obesity (Acute) Hepatosplenomegaly (Acute) Fatty liver (Acute) Adjustment disorder with depressed mood (Acute) Abnormal ECG (Acute) Pre-op evaluation (Acute) Anemia (Acute) Diabetes mellitus (Acute) Morbid obesity (Acute) Past Medical History Medical History Hepatosplenomegaly Adjustment disorder with depressed mood Fatty liver Anemia Diabetes Family History Family History Mother Hyperchloremia Hypertension Cancer of pancreas Father Hyperchloremia Hypertension Surgical History Surgical History No pertinent past surgical history Social History Social History Are you a primary manager long term care to a significant other at home: No Do you presently have visiting nurse or other home services: No Alcohol intake: never Patient Tobacco Use Status: Never used Tobacco Use of substances other than those prescribed or required for medical reasons: No Have you been hit, kicked, punched, or otherwise hurt by someone within the past year? If so, by whom?: No Are you DNR?: No Advance Directives: No Advance Directives on File: No Recently lost weight without trying: No Eating poorly because of decreased appetite: No Nutrition Risks: No Nutritional Risk Patient : No FDLMP: 08/14/23 : No Poor oral hygiene: No Meds Allergies Allergy/AdvReac Type Severity Reaction Status Date / Time No Known Allergies Allergy Verified 09/03/23 06:14 Home Medications ?Medication ?Instructions ?Recorded ?Confirmed ?Last Taken ?Type blood sugar diagnostic (FreeStyle #10 ea 01/09/23 08/25/23 Unknown History Lite Strips) lancets 28 gauge (FreeStyle #100 ea 01/09/23 08/25/23 Unknown History Lancets) dulaglutide 1.5 mg/0.5 mL 4.5 mg subcut QWEEK 07/30/23 09/03/23 08/25/23 History subcutaneous pen injector (Trulicity) Exam Height,Weight and Vital Signs: Height 5 ft 1 in Weight 91.807 kg Pertinent Lab Results Pertinent Lab Results: Laboratory Tests 08/26/23 08/26/23 08:28 08:37 WBC 7.3 RBC 5.39 Hgb 12.9 Hct 41.7 MCV 77.4 L MCH 23.9 L MCHC 30.9 L RDW 14.6 Plt Count 269 MPV 12.3 Immature Gran % (Auto) 0.1 Neut % (Auto) 70.2 Lymph % (Auto) 21.8 [place] % (Auto) 5.7 Eos % (Auto) 1.5 Baso % (Auto) 0.7 Lymph # (Auto) 1.6 [place] # (Auto) 0.4 Eos # (Auto) 0.1 Baso # (Auto) 0.1 Abs Immat Gran (auto) 0.01 Absolute Neuts (auto) 5.1 Absolute Nucleated RBC 0.000 Nucleated RBC % (auto) 0.0 PT 13.5 H INR 1.1 APTT 36.0 Sodium 141 Potassium 3.6 Chloride 107 Carbon Dioxide 25 Anion Gap 13 BUN 12 Creatinine 0.65 Estim Creat Clear Calc TNP Estimated GFR > 60 Random Glucose 104 Estimat Average Glucose 131 Hemoglobin A1c % 6.2 H Calcium 10.0 Iron 65 TIBC 315 % Saturation 21 Unsat Iron Binding 250 Ferritin 88 Total Bilirubin 0.8 AST 25 ALT 18 Alkaline Phosphatase 45 C-Reactive Protein 0.24 Total Protein 8.7 H Albumin 4.5 Triglycerides 58 Cholesterol 127 LDL Cholesterol, Calc 83 HDL Cholesterol 33 L Vitamin A 29 L Vitamin B12 715 25-OH Vitamin D Total 33.4 TSH 1.15 Zinc 90 Blood Type B Positive Antibody Screen NEGATIVE Narrative Narrative: EKG 12/2022 Vent. Rate : 089 BPM Atrial Rate : 089 BPM P-R Int : 170 ms QRS Dur : 080 ms QT Int : 358 ms P-R-T Axes : 050 037 000 degrees QTc Int : 435 ms Normal sinus rhythm Cannot rule out Anterior infarct , age undetermined Abnormal ECG No previous ECGs available ECHO 2022 Conclusions: - The left ventricular systolic function is normal. The calculated ejection fraction is 64% by biplane method. - No obvious valvular pathology seen on this study. NM cardiolite stress test 2022 IMPRESSION: 1. Myocardial perfusion imaging study shows likely normal myocardial perfusion. 2. Gated LVEF is 67% during stress and 57% during rest. 3. Transient ischemic dilatation not present. EKG component of the test reported separately. US abdomen comp w elastography 04/2023 IMPRESSION: 1. Impression: Slightly enlarged echogenic liver. Differential would include fatty infiltration and hepatocellular disease. Mild splenomegaly. These findings are similar to January 2023 exam. New echogenic density adjacent to the gallbladder wall questionable for a small polyp versus adherent nonshadowing stone or sludge. 2. Liver elastography: Adequate liver sampling. In the absence of other known clinical signs, rules out compensated advanced chronic liver disease. Assessment and Plan Assessment Anesthesia Assessment: Chart Reviewed Documented by User: Karoline Bernal MD 09/03/23 08:19 HPI - Anesthesia Eval Consult details Narrative: 28yo F for EGD, Laparoscopic Sleeve Gastrectomy, possible diaphragmatic hernia repair, possible ventral hernia repair, possible open Anesthesia Pre-Procedure Meds Is the patient on any of the following meds?: Dulaglutide (Trulicity) (Last dose 08/25/23) If Yes to any meds - educate patient: Pt education - increased risk of aspiration PMFSH Active Problems Active Problems: All Active Problems (Updated 09/03/23 @ 07:18 by Karoline Bernal MD) Hepatosplenomegaly (Acute) Fatty liver (Acute) Adjustment disorder with depressed mood (Acute) Abnormal ECG (Acute) Pre-op evaluation (Acute) Anemia (Acute) Diabetes mellitus (Acute) Morbid obesity (Acute) BMI 36.7 Past Medical History Medical History Hepatosplenomegaly Adjustment disorder with depressed mood Fatty liver Anemia Diabetes Family History Family History Mother Hyperchloremia Hypertension Cancer of pancreas Father Hyperchloremia Hypertension Family history of problems with anesthesia: No Surgical History Surgical History No pertinent past surgical history History of Problems with Anesthesia: No Social History Social History Are you a primary manager long term care to a significant other at home: No Do you presently have visiting nurse or other home services: No Alcohol intake: never Patient Tobacco Use Status: Never used Tobacco Use of substances other than those prescribed or required for medical reasons: No Have you been hit, kicked, punched, or otherwise hurt by someone within the past year? If so, by whom?: No Are you DNR?: No Advance Directives: No Advance Directives on File: No Recently lost weight without trying: No Eating poorly because of decreased appetite: No Nutrition Risks: No Nutritional Risk Patient : No FDLMP: 08/14/23 : No Poor oral hygiene: No Meds Allergies Allergy/AdvReac Type Severity Reaction Status Date / Time No Known Allergies Allergy Verified 09/03/23 06:14 Home Medications ?Medication ?Instructions ?Recorded ?Confirmed ?Last Taken ?Type blood sugar diagnostic (FreeStyle #10 ea 01/09/23 08/25/23 Unknown History Lite Strips) lancets 28 gauge (FreeStyle #100 ea 01/09/23 08/25/23 Unknown History Lancets) dulaglutide 1.5 mg/0.5 mL 4.5 mg subcut QWEEK 07/30/23 09/03/23 08/25/23 History subcutaneous pen injector ([facility]) Exam Height,Weight and Vital Signs: Height 5 ft 1 in Weight 91.807 kg Vital Signs Temp Pulse Resp BP Pulse Ox O2 Del Method 09/03/23 06:32 96.6 F L 107 H 16 130/87 98 Room Air Pertinent Lab Results Pertinent Lab Results: Laboratory Tests 08/26/23 08/26/23 08:28 08:37 WBC 7.3 RBC 5.39 Hgb 12.9 Hct 41.7 MCV 77.4 L MCH 23.9 L MCHC 30.9 L RDW 14.6 Plt Count 269 MPV 12.3 Immature Gran % (Auto) 0.1 Neut % (Auto) 70.2 Lymph % (Auto) 21.8 [place] % (Auto) 5.7 Eos % (Auto) 1.5 Baso % (Auto) 0.7 Lymph # (Auto) 1.6 [place] # (Auto) 0.4 Eos # (Auto) 0.1 Baso # (Auto) 0.1 Abs Immat Gran (auto) 0.01 Absolute Neuts (auto) 5.1 Absolute Nucleated RBC 0.000 Nucleated RBC % (auto) 0.0 PT 13.5 H INR 1.1 APTT 36.0 Sodium 141 Potassium 3.6 Chloride 107 Carbon Dioxide 25 Anion Gap 13 BUN 12 Creatinine 0.65 Estim Creat Clear Calc TNP Estimated GFR > 60 Random Glucose 104 Estimat Average Glucose 131 Hemoglobin A1c % 6.2 H Calcium 10.0 Iron 65 TIBC 315 % Saturation 21 Unsat Iron Binding 250 Ferritin 88 Total Bilirubin 0.8 AST 25 ALT 18 Alkaline Phosphatase 45 C-Reactive Protein 0.24 Total Protein 8.7 H Albumin 4.5 Triglycerides 58 Cholesterol 127 LDL Cholesterol, Calc 83 HDL Cholesterol 33 L Vitamin A 29 L Vitamin B12 715 25-OH Vitamin D Total 33.4 TSH 1.15 Zinc 90 Blood Type B Positive Antibody Screen NEGATIVE Laboratory Results - last 24 hr 08/26/23 09/03/23 09/03/23 08:37 06:15 06:36 POC Glucose 111 Vitamin B1 16 Urine Test NEGATIVE Airway Mallampati Class: II TM Dist: >3cm Neck ROM: Full Loose/Missing/Broken Teeth: No (Denies broken, loose, missing teeth) Heart: RRR Lungs: CTAB Assessment and Plan Assessment Anesthesia Assessment: Anesthesia Plan Discussed and Chart Reviewed Final Anesthetic Review Family History of Problems with Anesthesia: No History of Problems with Anesthesia: No NPO: Yes ASA Class: III Final Preanesthetic Review: No Changes in Pt Med Stat, Meds/Allgs Chart Reviewed, Consent Obtained/Reviewed and Anes Risks/Benef Reviewed Patient Risk: Intermediate Procedure Risk: Intermediate Assessment/Block/Sedation in SS: Assess/Block/Sedation-SS Anesthetic Plan Anesthetic Plan: GA Disposition: Standard PACU and Inp. Admit - Standard Bed
[2023-09-02 15:39] LABS: Vitamin B1 16 nmol/L (8-30)
[2023-09-03] VITALS (11 sets, daily range): BP systolic 122–136; BP diastolic 75–92; PULSE 80–107; RESP 14–20; TEMP 35.9–36.6; O2SAT 96–100; BMI 36.7; BMI 40.6
--- NOTE | 2023-09-03 | ECG_ITS ---
Test Reason : ekg changes Blood Pressure : / mmHG Vent. Rate : 089 BPM Atrial Rate : 089 BPM P-R Int : 194 ms QRS Dur : 098 ms QT Int : 390 ms P-R-T Axes : 044 043 -14 degrees QTc Int : 474 ms Normal sinus rhythm Cannot rule out Inferior infarct , age undetermined Abnormal ECG When compared with ECG of 09-JAN-2023 12:11, No significant change was found Referred By: Karoline Bernal Electronically Signed By:DEBI MAHONEY MD
[2023-09-03 06:25] LABS: UPreg QC Valid YES; Urine Pregnancy NEGATIVE (NEGATIVE)
[2023-09-03] MEDS: Lactated Ringers 1,000 ML 100 ML IVCONT ×3 (06:33→21:27)
[2023-09-03] MEDS: Aprepitant 32 MG/4.4 ML VIAL IVPUSH (06:33)
[2023-09-03] MEDS: Lactated Ringers 1,000 ML 999 ML IV (06:33)
[2023-09-03 06:45] LABS: Glucose, Whole Blood 111 mg/dL (60-115)
--- NOTE | 2023-09-03 07:42 | P.BOP_ITS ---
Brief Operative Note Date of Service: 09/03/23 Pre-op diagnosis: Severe obesity with comorbidities (see below) Post-op diagnosis: same (& congenital retrogastric adhesions) Procedure: INITIAL PATIENT BMI ON PRESENTATION AT OUR OFFICE: 43.7 kg/m2 LAST BMI BEFORE SURGERY: 39.3 kg/m2 COMORBIDITIES: non-insulin dependent diabetes, GERD, liver steatosis, LVH ?The patient presented to the Weight Management Program with significant obesity that was negatively impacting the patient's comorbidities as listed above.? The program is a phased program with a special focus on preoperative medical weight management to promote substantial weight loss and prepare the patients for the second phase of the program: bariatric surgery. The patient participated in an intensive weekly lifestyle ?intervention and exercise program during which the patient ?has lost between the initial office visit and the last preoperative visit 26.8lbs, or 11.55% of initial actual body weight. It was deemed appropriate for the patient to now have bariatric surgery. In light of the current Covid-19 pandemic and the well documented strong association of obesity and increased risk of worse outcomes if infected with Covid-19 (REFERENCES: https://pubmed.ncbi.nlm.nih.gov/11102446/ ,? https://pubmed.ncbi.nlm.nih.gov/89720492/ ), any delay in undergoing bariatric surgery may lead to the patient's worsening health condition and increased?risk of more severe Covid-19 disease if infected. In addition a recent?study from [facility] published in [facility] on 05/27/2021 ([email or web address]) found that, among patients with obesity, substantial weight loss achieved with surgery was associated with improved outcomes of COVID-19 infection. The findings suggest that obesity can be a modifiable risk factor for the severity of COVID-19 infection. In addition, the patient met the BMI-criteria for bariatric surgery based on the BMI on initial presentation. The patient should not be penalized for achieving such weight loss because ?it is not sustainable long-term without surgical intervention and it was achieved in preparation for bariatric surgery ?under my direction and based on my published research ([email or web address]).[email or web address] and? https://www.soard.org/article/[email or web address](90)72830-X/pdf ) ?that a 10% preoperative weight loss improves long-term weight loss after surgery and reduces perioperative complications.? Insurance carriers such as [facility] have endorsed my recommendations ?and have included in their policies criteria to include a 10% preoperative weight loss requirement. PROCEDURE: Esophago-gastroscopy,laparoscopic lysis of adhesions, laparoscopic sleeve gastrectomy and laparoscopic gastropexy INDICATIONS: This is a 28 year-old female who was electively scheduled for laparoscopic, possibly open sleeve gastrectomy. The risks and complications of the procedure were discussed with the patient in advance, particularly the possibility of ; pulmonary embolism; staple line leak; bleeding; GERD; cardiac, pulmonary, or renal complications; as well as long-term problems such as insufficient weight loss, vitamin deficiency, strictures, or ulcers. The patient understood all the risks, and was in agreement to proceed with surgery. DESCRIPTION OF PROCEDURE: After informed consent was obtained from the patient, the patient was given preoperative antibiotics, and was transferred to the operating room. After successful induction of general anesthesia, pneumatic compression devices were placed on both lower extremities. An upper endoscopy was performed next. The oropharynx and esophagus appeared to be within normal limits. There was no diaphragmatic hernia present consistent with the findings of the preoperative upper GI. The stomach was entered. Then after all fluid and air were suctioned and the stomach was fully decompressed, the scope was withdrawn and secured in the mid esophagus. The patient was then prepped and draped in the usual sterile manner, and abdominal access was established at the right upper quadrant with the Naresh technique. A 12 mm blunt port was inserted, and the abdomen was insufflated with CO2 to a pressure of 15 mmHg. Under direct visualization, additional ports were placed, specifically two 5 mm Versi-step ports to the left upper quadrant, and a 5 mm Versi-Step port to the right upper quadrant. 1% lidocaine plain was used to infiltrate all port sites as well as all fascia defects. Following that, the patient was placed in a steep reverse Trendelenburg position. An additional 5 mm port was placed to the right flank for the Mediflex retractor that was used to retract the left lobe of the liver. The gastro-esophageal fat pad was opened with the ultrasonic device (Thunderbeat, Olympus) and the anterior esophagus and hiatus were exposed. The angle of His was opened with the ultrasonic device the fundus of the stomach from any diaphragmatic and splenic attachments. I then opened the gastrocolic ligament between the transverse colon and the greater curvature of the stomach with the ultrasonic device to enter the lesser sac and facilitate the ligation of the short gastric vessels. I started at a mid-point along the greater curvature and using the Thunderbeat, all short gastric vessels were divided all the way to the angle of His until the left fior was completely dissected at its entirety. I then divided the gastro-colic ligament distally to a distance of about 3-4 cm proximal to the pylorus. There were extensive congenital adhesions between the pancreas and posterior gastric wall. Those were lysed completely with the ultrasonic device. Adhesiolysis took approximately 45 min to complete. The stomach was then divided transversely with three Endo GIULIA-45 purple and three GIULIA-60 articulating purple loads using the SmartpayIA stapler and loads. Every effort was made that the gastric sleeve had a tubular shape and an even caliber throughout. Once the sleeve resection was completed, the staple line of the gastric sleeve was reinforced with Hemoclips. The resected stomach was retrieved without difficulty from the Naresh port. A gastropexy was then performed in order to prevent postoperative GERD and partial gastric volvulus. Several interrupted 2.0 Surgidac sutures were placed between the sleeve's staple line and the previously divided greater omentum and gastro-colic ligament using the Endo-Stitch device. ?An upper endoscopy was performed. There was no narrowing at the GE junction. The scope was easily advanced all the way to the pylorus which was clearly visualized. There was no narrowing anywhere and the sleeve's caliber was even throughout. The sleeve's staple line was inspected and there was no evidence of ischemia, bleeding or dehiscence. At that point the gastroscope was withdrawn from the patient?s mouth while we were decompressing the bowel and the stomach from any remaining air. I looked into the lesser sac to see how the sleeve was situating and it was situating well. There was no bleeding from the staple line, spleen, or short gastric vessels. The Mediflex retractor was removed, and the undersurface of the liver was inspected and there was no bleeding. The patient was placed in supine position. I closed the fascial defect of the 12 mm port site with a figure of eight #1 Polysorb suture. Then 30cc Ropivacaine plain with 10 mg of Dexamethasone were used to infiltrate the fascial closure as well as all skin incisions. At this point, the abdomen was deflated, all ports were removed under direct vision, and no bleeding was noted from any of the port sites. The skin incisions were irrigated with saline and were closed with 4-0 absorbable monofilament sutures. Steri-Strips and OpSites were used to cover all incisions. The patient was extubated and was transferred in stable condition to the recovery room for further care. I was present and performed all altamirano parts of the procedure. Mr. Boggs was the pediatric dental assistant. There were no residents to assist with this case. Braxton Borrego MD, PhD, FACS Surgeon: Tawanda Borrego MD Anesthesia: GETA, local and other (TAP block) Was an Land Department Head used for this Procedure?: No Land Department Head: Gonzalez Boggs Estimated blood loss (mL): 10 IV fluids (mL): 3,000 Urine output (mL): 0 (No Francois to record output) Pathology: other (Stomach) Condition: stable Disposition: PACU
--- NOTE | 2023-09-03 07:45 | PM.PNGS ---
Subjective Subjective Date of Service: 09/03/23 Interval history: Feels well. Mild incisional pain. She is tolerating phase 1 bariatric diet Physical Exam Vital Signs: Vital Signs: Last Vital Signs Temp 96.6 F L 09/03/23 06:32 Pulse 107 H 09/03/23 06:32 Resp 16 09/03/23 06:32 BP 130/87 09/03/23 06:32 Pulse Ox 98 09/03/23 06:32 O2 Del Method Room Air 09/03/23 06:32 BMI result Body Mass Index 36.7 GI: Inspection: Yes normal to inspection, Yes incision (clean, dry and intact) and Yes obesity Palpation (GI): Soft to palpation Extrem: Right lower extremity: normal to inspection (no calf tenderness) Left lower extremity: normal to inspection (no calf tenderness) Objective Data Active Medications Lactated Ringer's (Lr) 1,000 mls @ 100 mls/hr IVCONT .Q10H [facility] Last Admin: 09/03/23 06:33 Dose: 100 mls/hr Documented By: LOUIS Lactated Ringer's (Lr) 1,000 mls @ 999 mls/hr IV .Q1H1M [facility] Stop: 09/03/23 08:15 Last Admin: 09/03/23 06:33 Dose: 999 mls/hr Documented By: LOUIS Labs 08/26/23 08:37 08/26/23 08:37 Labs: Laboratory Results - last 24 hr 08/26/23 09/03/23 09/03/23 08:37 06:15 06:36 POC Glucose 111 Vitamin B1 16 Urine Test NEGATIVE Procedures Date of Service Date of Service: 09/03/23 Progress Note: A&P Assessment and plan (1) Obesity: Status: Acute Assessment and Plan: s/p laparoscopic sleeve gastrectomy, lysis of adhesions and gastropexy Doing well Will check am labs and if OK the patient will be discharged home (2) Fatty liver: Status: Acute (3) Diabetes mellitus: Status: Acute (4) GERD (gastroesophageal reflux disease): Status: Acute (5) LVH (left ventricular hypertrophy): Status: Acute (6) S/P laparoscopic sleeve gastrectomy: Status: Acute (7) Congenital intra-abdominal adhesions: Status: Acute Time Spent With Patient Time: Total time managing care of this patient today ____ minutes. Quality Stroke Does the patient have a stroke diagnosis?: No VTE Prior VTE?: No VTE Risk Level:: Surgical - moderate VTE Device Contraindication: N/A - Device Ordered VTE Drug Contraindication: Treatment Not Indicated
--- NOTE | 2023-09-03 09:52 | P.DS_ITS ---
DS: Providers Provider Date of Service: 09/04/23 Date of admission: 09/03/23 06:04 Primary care physician: None Physician DS: Diagnosis Discharge Diagnosis (1) Obesity: Status: Acute (2) Fatty liver: Status: Acute (3) Diabetes mellitus: Status: Acute (4) GERD (gastroesophageal reflux disease): Status: Acute (5) LVH (left ventricular hypertrophy): Status: Acute DS: Summary Hospital Course Hospital Course: ADMITTING DIAGNOSIS: obesity, dm, anemia, lvh ? DISCHARGE DIAGNOSIS: same, s/p laparoscopic sleeve gastrectomy ? PAST SURGICAL HISTORY: none ? PROCEDURE: upper endoscopy, laparoscopic sleeve gastrectomy ? DISCHARGE SUMMARY: ? History of Present Illness: ? The patient is a?28 year-old woman with a BMI of?43.7 kg/m2 and associated co- morbidities as described above. The patient had extensive work-up,lost?29.3 lbs preoperatively and was electively scheduled for laparoscopic, possible open sleeve gastrectomy and gastropexy. Risks and complications of the surgery were discussed with the patient in advance, particularly the possibility of , pulmonary embolism, anastomotic leak, bleeding, bowel injury, GERD, cardiac, renal or pulmonary complications. The patient understood all the risks and was in agreement with the surgical plan. ? Hospital Course: ? The patient underwent an uneventful laparoscopic sleeve gastrectomy with gastropexy on the day of admission. Postoperatively, the patient was transferred to the surgical floor. The patient received IV Acetaminophen and IV dilaudid for pain control. Patient was started on bariatric phase 1 diet POD #0. On postoperative day one, the patient was feeling well without nausea, vomiting, fevers, or tachycardia. The patient had some mild incisional pain and the abdomen was soft. ? On the morning of postoperative day one, the patient was continued on 1 ounce of water or ice every half hour. During the day, the patient did fairly well, having some incisional pain, but able to ambulate adequately and to tolerate liquids well. ? Since the patient is doing well, we decided that the patient was ready to be discharged. The patient was given instructions to follow-up with me next week and to call my office for any fever over 101, persistent abdominal pain, nausea, vomiting, GERD, symptoms of DVT such as calf tenderness, or leg swelling, or pulmonary embolism such as chest pain or shortness of breath. The patient was also instructed to drink 40-60 ounces of liquids per day using the 1-ounce cups. The patient had been given prescriptions for Tylenol for pain, Zofran prn for nausea, and pantoprazole and carafate previously. The patient was encouraged to ambulate and use the incentive spirometer. The patient was allowed to shower, but no baths, and encouraged to stay active at home. All of these instructions were given to the patient personally. All questions were answered and the patient understood all instructions, the instructions were also given to the patient in print. Time Attestation Discharge Coordination Time (in mins): 25 Quality: Safe Use of Opioids Does Pt have an Active Cancer Diagnosis on the Problem List?: No Quality: Stroke Does the patient have a stroke diagnosis?: No Physical Exam Vital Signs: Vital Signs: Last Vital Signs Temp 96.6 F L 09/03/23 06:32 Pulse 107 H 09/03/23 06:32 Resp 16 09/03/23 06:32 BP 130/87 09/03/23 06:32 Pulse Ox 98 09/03/23 06:32 O2 Del Method Room Air 09/03/23 06:32 BMI result Body Mass Index 36.7 DS: Data Data Completed and Pending Pending studies at discharge: Pending at discharge 09/03/23 09:13 Surgical [PTH] Routine 09/03/23 09:19 Surgical [PTH] Routine Labs on day of discharge: Laboratory Results - last 24 hr 08/26/23 09/03/23 09/03/23 08:37 06:15 06:36 POC Glucose 111 Vitamin B1 16 Urine Test NEGATIVE Discharge Plan Discharge Anticipated Discharge Date/Time: 09/04/23 10:00 Patient Disposition: Home, Self-Care Discharge Diagnosis: s/p laparoscopic sleeve gastrectomy Referrals: Physician,None [Primary Care Provider] - 1 Week Discharge Medications: Continued sucralfate [Carafate] 100 mg/mL suspension 10 ml PO BID PRN (Reason: Abdominal Discomfort) pantoprazole 40 mg tablet,delayed release (DR/EC) 40 mg PO DAILY Qty: 90 0RF ondansetron 4 mg tablet,disintegrating 4 mg PO Q12H Qty: 20 0RF Rx Instructions: Only take one every 12 hours as needed if you have nausea Held Trulicity 1.5 mg/0.5 mL pen injector 4.5 mg subcut TU Hold Instructions: until discussed with Dr Borrego Discontinued cholecalciferol (vitamin D3) 50 mcg (2,000 unit) capsule 50 mcg PO DAILY 90 Days Qty: 90 1RF No Action (DME) FreeStyle Lite Strips Strip See Rx Instructions .ROUTE .MEDSUPPLY Qty: 10 Rx Instructions: As directed (DME) lancets [FreeStyle Lancets] 28 gauge misc See Rx Instructions .ROUTE QID Qty: 100 Rx Instructions: As directed Discharge Orders: Discharge Order (Routine); Ordered 09/04/23 Ordered By: Gonzalez Boggs Activity on Discharge: No heavy lifting Stand Alone Forms: Patient Portal Discharge page Print Language: Serbian Care Plan Goals: weight loss Health Concerns: obesity, dm Plan of Treatment: No tub baths, sex or returning to work until discussed at first post op appointment. No exercise, alcohol, tobacco or illegal drug use. Continue to use incentive spirometer hourly while awake. Walk in home for 5- 10 minutes every 2 hours during the first week. Follow all instructions in the bariatric handbook and call with any questions.Discharge Instructions 1. Please call your doctor or come back to the emergency room should any new symptoms arise. 2. You will receive a courtesy call from [facility] 24-48 hours after discharge. 3. Activity: abstain from alcohol, practice limited stair climbing, no bending, no driving, no exercise, no illicit substances, no lifting, no sex, no tub bath, no work. 4. Diet: continue as discussed with Dr. Borrego. 5. Dressing Change/Wound Care: Your incision is covered by clear bandages and guaze underneath. If the area is tender, you may apply an ice pack for short intervals (no more than 20 minutes on, followed by at least 20 minutes off). Do not apply heat. Do not use creams, lotions, or topical antibiotics unless instructed to do so by your surgeon. These can cause infection or allergic reaction. 6. Call your doctor if: - Your temperature exceeds 101.5 F - You experience excessive pain or swelling - You have an unexpected reaction to medication - You have excessive bleeding - You experience continued vomiting/nausea - Your incision begins to separate - Your incision shows signs of infection such as increased redness, swelling, excessive pain, heat, or drainage (light blood or clear fluid is normal) 7. General instructions: No lifting greater than 5 lbs for 1 week and not more than 20lbs the next 3?weeks. No driving until seen at the office in 5-7 days after surgery. If you do not move your bowels in the next 2 days, please tell?Dr. Borrego. Please walk around your home every hour or two to prevent blood clots from forming in your legs. You do not need to wake from sleeping to walk. Please sleep in a bed or couch to prevent kinking at the hips and knees. Please take your incentive spirometer (your lung retail associate manager bilingual) home with you and use it for the next few days to prevent pneumonia. You may shower, no hot tubs, baths or swimming pools.?Please follow the post op diet instructions you are?given by Dr Borrego? and text me daily at 5-6pm for an update.?If you have any issues or concerns or questions please communicate this to him via text.? The Celebrate shakes have all of the bariatric vitamins you need if you consume these shakes. If you are drinking other protein shakes, you will need to purchase the Celebrate multivitamins and calcium that are available in the hospital gift shop on the first floor of the main hospital.??Do not take anything without first discussing with Dr Borrego. Please make sure you are consuming at least 40 ounces of fluids per day starting the?day AFTER your discharge from the hospital. Always drink 1-2 ml per minute using the 5ml?syringe. If you drink faster you may experience?bloating,?gas pain, burping, nausea or heartburn. In that case please slow down your pace and use the syringe to?understand better the?proper?pace and volume of drinking. Do not hesitate to contact the office with any questions at . The patient's medical history has been reviewed and they are considered low risk for post op DVT and therefore DVT prophylaxis is not considered necessary. Travel after surgery was reviewed. The patient has not disclosed any travel plans during the first 30 days after surgery and they have been advised that within the first 30 days after surgery any bus, plane, train or car travel over 2 hours in duration is contraindicated due to the possibility of developing blood clots from immobility. Any travel, needs to include periods of ambulation of 10 minutes in duration every 2 hours.? The patient was instructed to discuss any plans for travel during this period with their bariatric surgeon. Assessment: stable s/p laparoscopic sleeve gastrectomy
[2023-09-03] MEDS: ondansetron HCL 4 MG/2 ML VIAL IVPUSH (10:17)
[2023-09-03 11:00] LABS: Hematocrit 36.4 % (37.0-47.0); Hemoglobin 11.4 g/dl (12.0-16.0)
[2023-09-03 11:18] LABS: Anion Gap 15 (12-20); Blood Urea Nitrogen 9 mg/dL (9-16); Calcium 8.4 mg/dL (8.4-10.2); Carbon Dioxide 20 mmol/L (22-29); Chloride 106 mmol/L (96-108); Creatinine Clr Calc Pharmacy 137.4; Estimated Glomerular Filt Rate > 60; Glucose Random 175 mg/dL (60-115); Potassium 3.3 mmol/L (3.3-5.1); Sodium 138 mmol/L (135-145)
[2023-09-03 11:29] LABS: Glucose, Whole Blood 154 mg/dL (60-115)
[2023-09-03 11:39] LABS: Glucose, Whole Blood 171 mg/dL (60-115)
--- NOTE | 2023-09-03 12:03 | PC.NURSE ---
Pt sleepy from PACU, VSS, will attempted interview questions for admission when patient comes more awake.
[2023-09-03] MEDS: ceFAZolin Sodium/Dextrose,Iso 2 GM/50 ML PIGGYBACK IV (13:32)
[2023-09-03] MEDS: Acetaminophen 1,000 MG/100 ML PIGGYBACK 16.7 MG IV ×2 (14:07→19:01)
--- NOTE | 2023-09-03 14:59 | PHA.MEDREC ---
Pharmacy Consult ? Medication Reconciliation Pharmacy has completed the medication reconciliation. Spoke to patient and confirmed medication list. Patient takes trulicity on tuesdays, the last dose was on 08/25/23, did not take this week's dose due to surgery.
[2023-09-03 16:05] LABS: Glucose, Whole Blood 161 mg/dL (60-115)
--- NOTE | 2023-09-03 16:58 | PC.NURSE ---
Pt doing well, tolerating PO Liquids.
[2023-09-03 20:21] LABS: Glucose, Whole Blood 147 mg/dL (60-115)
[2023-09-03] MEDS: Famotidine/PF 20 MG/2 ML VIAL IVPUSH (21:27)
[2023-09-04] MEDS: Acetaminophen 1,000 MG/100 ML PIGGYBACK 16.7 MG IV (01:21)
[2023-09-04 03:20] VITALS: BP 122/74; PULSE 74; RESP 16; TEMP 36.3; O2SAT 97
[2023-09-04 07:06] LABS: Basophils Percent Auto 0.3 % (0-2); Hematocrit 35.1 % (37.0-47.0); Hemoglobin 11.2 g/dl (12.0-16.0); Imm Gran Abs Auto 0.05 X10*3/uL (0.00-0.03); Imm Gran Pct Auto 0.5 % (0.0-0.4); Lymphocytes Absolute Auto 1.4 X10*3/uL (1.2-4.9); Lymphocytes Percent Auto 12.9 % (20-40); Mean Corpuscular HGB Conc 31.9 g/dl (31.0-35.0); Mean Corpuscular Hemoglobin 24.2 pg (27.0-33.0); Monocytes Absolute Auto 0.8 X10*3/uL (0.1-1.2); Monocytes Percent Auto 7.1 % (2-11); Neutrophils Absolute Auto 8.5 x10*3/uL (2.0-8.3); Neutrophils Percent Auto 79.2 % (45-73); Platelet Count 175 X10*3/uL (160-400); Red Blood Count 4.62 X10*6/uL (4.20-5.50); Red Cell Distribution Width 14.5 % (11.0-16.0); White Blood Count 10.8 X10*3/uL (4.8-10.8)
[2023-09-04] MEDS: 0.9 % Sodium Chloride Flush 3 ML SYRINGE IVFLUSH (07:17)
[2023-09-04] MEDS: Famotidine/PF 20 MG/2 ML VIAL IVPUSH (07:17)
[2023-09-04 07:20] LABS: Anion Gap 16 (12-20); Blood Urea Nitrogen 6 mg/dL (9-16); Calcium 8.9 mg/dL (8.4-10.2); Carbon Dioxide 19 mmol/L (22-29); Chloride 108 mmol/L (96-108); Estimated Glomerular Filt Rate > 60; Glucose Random 114 mg/dL (60-115); Potassium 4.1 mmol/L (3.3-5.1); Sodium 139 mmol/L (135-145)
[2023-09-04 07:31] VITALS: BP 133/76; PULSE 85; RESP 16; TEMP 36.1; O2SAT 98
[2023-09-04 07:45] LABS: Glucose, Whole Blood 119 mg/dL (60-115)
--- NOTE | 2023-09-04 08:54 | MHC.CM.PN ---
PT LEFT BEFORE COULD BE SEEN BY CM.
== END 2023-09-04 08:13 | disposition home or self-care (01) | DRG 403 ==
LOC: HO.SSSA 09:55 → HO.S3 10:25
PROVIDERS: Nurse Practitioner; Physician Assistant Surgical; Admitting Provider Surgery; Visit Provider Surgery
PROC: 0DB64Z3 Excision of Stomach, Percutaneous Endoscopic Approach, Vertical (ICD-10-PCS; CPT 43845; principal; 2023-09-03 07:30)
DX: E66.01 Morbid (severe) obesity due to excess calories (principal); K76.0 Fatty (change of) liver, not elsewhere classified; Q43.3 Congenital malformations of intestinal fixation; E11.9 Type 2 diabetes mellitus without complications; Z68.39 Body mass index [BMI] 39.0-39.9, adult; I51.7 Cardiomegaly; K21.9 Gastro-esophageal reflux disease without esophagitis; Z79.85 Long-term (current) use of injectable non-insulin antidiabetic drugs; Z79.899 Other long term (current) drug therapy
CPT/HCPCS: 36415; 80048; 80053; 80061; 81025; 82306; 82607; 82728; 82947; 83036; 83540; 84425; 84443; 84590; 84630; 85014; 85018; 85025; 85610; 85730; 86140; 86850; 86900; 86901; 88304; 88305; 88307; 88342; 93005; A4649; C9088; C9145; J0131; J0690; J1100; J2250; J2371; J2405; J2550; J2704; J2795; J3010; J7120

== ENCOUNTER 2023-09-03 06:04 | Outpatient (BNV) | payer OTHER, SELFPAY | END 2023-09-03 10:07 | PROVIDERS: Admitting Provider Surgery; Visit Provider Internal Medicine Cardiovascular Disease | DX: R94.31 Abnormal electrocardiogram [ECG] [EKG] (principal) | CPT/HCPCS: 93010 ==

== ENCOUNTER → 2023-09-03 06:04 | Outpatient (BNV) | payer OTHER, SELFPAY | PROVIDERS: Admitting Provider Surgery; Visit Provider Surgery | DX: E66.01 Morbid (severe) obesity due to excess calories (principal); Z68.38 Body mass index [BMI] 38.0-38.9, adult; K76.0 Fatty (change of) liver, not elsewhere classified; E11.9 Type 2 diabetes mellitus without complications; K21.9 Gastro-esophageal reflux disease without esophagitis; I51.7 Cardiomegaly | CPT/HCPCS: 43659; 43775; 99024; 99212 ==

== ENCOUNTER 2023-09-09 10:41 | Outpatient (AMB) | payer OTHER, SELFPAY ==
[2023-09-09 11:15] VITALS: BP 142/83; PULSE 78; TEMP 36.6; O2SAT 98; BMI 36.3
--- NOTE | 2023-09-09 11:15 | A.OFFVIS_ITS ---
Intake VS Expanded 09/09/23 11:15 BP 142/83 H Blood Pressure Location Rt brachial Blood Pressure Position Sitting Pulse 78 Pulse Source Pulse Oximeter Temp 97.9 F Temperature Source Tympanic Pulse Oximetry 98 Oxygen Delivery Method Room Air Height 5 ft 1 in Weight 192 lb 3.2 oz BMI 36.3 Body Fat % 33.4 Body Fat Mass 92.0 Fat Free Mass 127.8 Visceral Fat Rating 6.0 Body Water % 47.9 Body Water Mass 92.0 Muscle Mass/Score 121.4 Basal Metabolic Rate/Score 1,767 Intake Visit Reasons: (OV) PO LSG 09/03/23 Allergies No Known Allergies Allergy (Verified 09/09/23 11:21) HPI HPI Comments History of Present Illness Details The patient is a very pleasant 28-year-old female who returns to the office today, 6 days post sleeve gastrectomy performed on 09/03/2023. She is tolerating 3 celebrate 4 in 1 shakes with 1 scoop each and approximately 40-50 oz of fluid per day. She is moved her bowels and denies any significant pain. [facility] Medical History Hepatosplenomegaly Adjustment disorder with depressed mood Fatty liver Anemia Diabetes Surgical History (Updated 09/09/23 @ 11:22 by Cassy Whatley CMA) Hx of laparoscopic partial gastrectomy No pertinent past surgical history Family History Mother Hyperchloremia Hypertension Cancer of pancreas Father Hyperchloremia Hypertension Social History Household Members: Family Housing: House Are you a primary direct support professional caregiver to a significant other at home: No Do you presently have visiting nurse or other home services: No Alcohol intake: never Patient Tobacco Use Status: Never used Tobacco Physical Exam Vital Signs: Last Vital Signs Temp 97.9 F 09/09/23 11:15 Pulse 78 09/09/23 11:15 BP 142/83 H 09/09/23 11:15 Pulse Ox 98 09/09/23 11:15 Oxygen Delivery Method Room Air 09/09/23 11:15 BMI result Body Mass Index 36.3 GI Inspection: Yes incision (Clean, dry, intact.) Assessment & Plan Assessment & Plan (1) S/P laparoscopic sleeve gastrectomy: Code(s): Z98.84 - Bariatric surgery status Plan: POD 6 s/p LSG on 09/03/[address] Borrego Weight loss prior to surgery was 29.3 pounds or 12.6 % TBWL. Original weight on 01/09/2023 was 231.2 pounds and op weight was 201.9 pounds. Be sure to text Dr Borrego exactly 1 week after surgery your weight from your home scale so he can adjust your meal plan. Continue meal plan until f/u adelaide Roth in 2 weeks May shower, no submersion in bath for another week Continue abdominal binder with activity and exercise for the next 2 weeks. Exercise prior to surgery was stationary bike and treadmill , may resume No abdominal exercises for 6 weeks post operatively Will be emailed link to post op video for review Reminded of the pace of drinking, 2 mL per minute, 1 oz/15 min. Coding Level of Care Code Global (07709) Diagnoses S/P laparoscopic sleeve gastrectomy Z98.84
== END 2023-09-09 11:40 | disposition home or self-care (01) ==
PROVIDERS: PCP Physician Assistant; Visit Provider Physician Assistant Surgical
DX: Z98.84 Bariatric surgery status (principal)
CPT/HCPCS: 99024

== ENCOUNTER → 2023-09-09 10:41 | Outpatient (BNVA) | payer OTHER, SELFPAY | PROVIDERS: PCP Physician Assistant; Visit Provider Physician Assistant Surgical | DX: Z48.815 Encounter for surgical aftercare following surgery on the digestive system (principal); Z98.84 Bariatric surgery status | CPT/HCPCS: 99212 ==

== ENCOUNTER 2023-09-28 08:51 | Outpatient (AMB) | payer OTHER, SELFPAY ==
[2023-09-28 09:24] VITALS: BMI 34.5
--- NOTE | 2023-09-28 09:24 | A.OFFVIS_ITS ---
VS Expanded 09/28/23 09:24 Height 5 ft 1 in Weight 182 lb 11.2 oz BMI 34.5 Intake Visit Reasons: PO LSG 09/03/23 Store Person Required: No Allergies No Known Allergies Allergy (Verified 09/09/23 11:21) Medication List - Last Reconciled 09/28/23 by KRISTIE Palmer blood sugar diagnostic (FreeStyle Lite Strips) As directed lancets (FreeStyle Lancets) As directed pantoprazole 40 mg PO DAILY sucralfate (Carafate) 10 mL PO BID PRN HPI Comments Details: This?a?28?yo female who is s/p LSG without hiatal hernia repair on?09/03/2023. Presents for 3 week post op visit. Weight today is 182.7 pounds, with a BMI of 34.5. There has been a 48.5 pound weight loss,(initial weight 231.2 pounds) since starting the program on 01/09/2023 reflecting a 20.9 % total body weight loss and a weight loss of 19.2 pounds since surgery (operative weight 201.9 pounds) reflecting a 9.5 % TBWL since surgery. No complaints of nausea, emesis, abdominal pain or reflux. Reports infrequent but normal bowel movements every 1- 2 days and uses stool softeners regularly. She states she is doing great and has no concerns. She is stating she would like to change shake at her next appointment as too sweet Present meal plan includes: 3 Celebrate 4 in 1 shakes 1 scoop 8-10, 11-1; 2 scoops 2-4 ZP or fit crunch 5-8 Drinking 50-64 oz water ? Exercise routine includes: walking outside 300 calories, 3-4 days per week home treadmill walking pad speed 3.8 45 min 250-300 lfetcher, daily stationary bike 300 fletcher, 3-4 days [facility] Medical History Pre-op evaluation Morbid obesity Hepatosplenomegaly Adjustment disorder with depressed mood Fatty liver Anemia Diabetes Surgical History (Updated 09/12/23 @ 00:02 by Wolf Ortez) Hx of laparoscopic partial gastrectomy No pertinent past surgical history Family History Mother Hyperchloremia Hypertension Cancer of pancreas Father Hyperchloremia Hypertension Social History Household Members: Family Housing: House Are you a primary healthcare facility administrator to a significant other at home: No Do you presently have visiting nurse or other home services: No Alcohol intake: never Patient Tobacco Use Status: Never used Tobacco Telehealth Telehealth Telehealth Platform: Telephone Location of provider rendering services: practice address Location of patient: address on file Patient Identification confirmed using: Name, : Yes Telehealth method: voice only Patient verbally consented to treatment: Yes Patient verbally consented to billing insurance company: Yes Patient informed of any privacy concerns related to visit: Yes Minutes spent on Phone/Video with Pt.: 15 Assessment & Plan Assessment & Plan (1) S/P laparoscopic sleeve gastrectomy: Code(s): Z98.84 - Bariatric surgery status Category: Surgical Plan: Patient is doing well, making good progress. We will continue current meal plan. We will have her return for an appointment in approximately 3 weeks with the understanding that we may change her meal plan at that time to a different shake product as she wishes to use the stalk that she recently purchased. She will text sooner with any questions or concerns.
== END 2023-09-28 14:51 | disposition home or self-care (01) ==
LOC: HO.HBS 08:51
PROVIDERS: PCP Physician Assistant; Visit Provider Physician Assistant Surgical
DX: Z98.84 Bariatric surgery status (principal)
CPT/HCPCS: 99024

== ENCOUNTER → 2023-09-28 08:51 | Outpatient (BNVA) | payer OTHER, SELFPAY | PROVIDERS: PCP Physician Assistant; Visit Provider Physician Assistant Surgical | DX: E66.9 Obesity, unspecified (principal); Z71.3 Dietary counseling and surveillance; Z98.84 Bariatric surgery status; Z98.890 Other specified postprocedural states | CPT/HCPCS: 99212 ==

== ENCOUNTER 2023-10-19 15:32 | Outpatient (AMB) | payer OTHER, SELFPAY ==
[2023-10-19 15:14] VITALS: BMI 33.5
--- NOTE | 2023-10-19 15:14 | MHC.OFFVISWM ---
VS Expanded 10/19/23 15:14 Height 5 ft 1 in Weight 177 lb 3.2 oz BMI 33.5 Body Fat % 41.3 Body Fat Mass 73.2 Fat Free Mass 104 Visceral Fat Rating 16 Body Water % 40.3 Body Water Mass 71.4 Muscle Mass/Score 97.8 Basal Metabolic Rate/Score 1,381 Intake Visit Reasons: PO LSG 09/03/23 Instrument Designer Required: No Allergies No Known Allergies Allergy (Verified 09/09/23 11:21) Medication List - Last Reconciled 10/19/23 by KRISTIE Palmer blood sugar diagnostic (FreeStyle Lite Strips) As directed lancets (FreeStyle Lancets) As directed pantoprazole 40 mg PO DAILY sucralfate (Carafate) 10 mL PO BID PRN HPI Comments Details: This?a?28?yo female who is s/p LSG without hiatal hernia repair on?09/03/2023. Presents for 6 week post op visit. Weight today is 177.2 pounds, with a BMI of 33.5. There has been a 54 pound weight loss,(initial weight 231.2 pounds) since starting the program on 01/09/2023 reflecting a 23.3 % total body weight loss and a weight loss of 24.7 pounds since surgery (operative weight 201.9 pounds) reflecting a 12.2 % TBWL since surgery. No complaints of nausea, emesis, abdominal pain or reflux. Reports infrequent but normal bowel movements every 1-2 days. Taking celebrate mvi She states she is doing great and has no concerns. She states that she text Dr Ayse Zamoar and changed meal plan. Would like to use isopure instead of the celebrate Present meal plan includes: Celebrate 4 in 1 shakes 1 scoop 8-10, ZP or fit crunch 11-1 isopure 1/2 scoop in 8 oz water 2-4 meal at 5 4 forks protein and 4 forks veg ZP bar 7-9 pm Drinking 50-60 oz water excluding shake ? Exercise routine includes: walking outside 300 calories, 3-4 days per week stationary bike 500-550 fletcher fletcher, 7 days, resistance 3-8, bike outside 30-45 min daily [facility] Medical History Pre-op evaluation Morbid obesity Hepatosplenomegaly Adjustment disorder with depressed mood Fatty liver Anemia Diabetes Surgical History (Updated 09/12/23 @ 00:02 by Wolf Ortez) Hx of laparoscopic partial gastrectomy No pertinent past surgical history Family History Mother Hyperchloremia Hypertension Cancer of pancreas Father Hyperchloremia Hypertension Social History Household Members: Family Housing: House Are you a primary farm or ranch animal caretaker to a significant other at home: No Do you presently have visiting nurse or other home services: No Alcohol intake: never Patient Tobacco Use Status: Never used Tobacco Telehealth Telehealth Telehealth Platform: Telephone Location of provider rendering services: practice address Location of patient: address on file Patient Identification confirmed using: Name, : Yes Telehealth method: voice only Patient verbally consented to treatment: Yes Patient verbally consented to billing insurance company: Yes Patient informed of any privacy concerns related to visit: Yes Minutes spent on Phone/Video with Pt.: 15 Assessment & Plan Assessment & Plan (1) S/P laparoscopic sleeve gastrectomy: Code(s): Z98.84 - Bariatric surgery status Category: Surgical Plan: change meal plan per pt request to exclude celebrate and substitute isopure isopure 1/2 scoop 8-10, ZP or fit crunch 11-1 isopure 1/2 scoop in 8 oz water 2-4 meal at 5 4 forks protein and 4 forks veg ZP bar 7-9 pm Increase intensity of stationary bike so that she may decrease the time. Plan to return to the office in 1 month
== END 2023-10-19 15:38 | disposition home or self-care (01) ==
LOC: HO.HBS 15:32
PROVIDERS: PCP Physician Assistant; Visit Provider Physician Assistant Surgical
DX: Z98.84 Bariatric surgery status (principal)
CPT/HCPCS: 99024

== ENCOUNTER → 2023-10-19 15:32 | Outpatient (BNVA) | payer OTHER, SELFPAY | PROVIDERS: PCP Physician Assistant; Visit Provider Physician Assistant Surgical | DX: E66.9 Obesity, unspecified (principal); Z68.33 Body mass index [BMI] 33.0-33.9, adult; Z90.3 Acquired absence of stomach [part of] | CPT/HCPCS: 99212 ==

== ENCOUNTER 2023-11-20 11:49 | Outpatient (AMB) | payer OTHER, SELFPAY ==
[2023-11-20 08:42] VITALS: BMI 32.5
--- NOTE | 2023-11-20 08:42 | A.OFFVIS_ITS ---
VS Expanded 11/20/23 08:42 Height 5 ft 1 in Weight 171 lb 14.4 oz BMI 32.5 Body Fat % 39.7 Body Fat Mass 68.2 Fat Free Mass 103.7 Visceral Fat Rating 15 Body Water % 41.4 Body Water Mass 71.2 Muscle Mass/Score 97.5 Basal Metabolic Rate/Score 1,381 Intake Visit Reasons: (TV) PO LSG 09/03/23 Allergies No Known Allergies Allergy (Verified 09/09/23 11:21) HPI Comments Details: This?a?28?yo female who is s/p LSG without hiatal hernia repair on?09/03/2023. Presents for 2 month post op visit. Weight today is 171.9 pounds, with a BMI of 32.5. There has been a 59.3 pound weight loss,(initial weight 231.2 pounds) since starting the program on 01/09/2023 reflecting a 25.6 % total body weight loss and a weight loss of 30 pounds since surgery (operative weight 201.9 pounds) reflecting a 14.8 % TBWL since surgery. No complaints of nausea, emesis, abdominal pain or reflux. Reports infrequent but normal bowel movements every 1-2 days. Taking celebrate mvi She states she is doing great and has no concerns. She states that she is not happy with her progress. She has been dealing with her mom stage 4 pancreatic cancer. 4 weeks ago she has new mets. She has not been exercising. Present meal plan includes: isopure 1/2 scoop 8-10, ZP or fit crunch 11-1 isopure 1/2 scoop in 8 oz water 2-4 meal at 5 4 forks protein and 4 forks veg ZP bar 7-9 pm Drinking 50-60 oz water excluding shake ? Exercise routine includes: joined gym 1.5 hr daily over the last week. walking outside 300 calories, 3-4 days per week stationary bike 500-550 fletcher fletcher, 7 days, resistance 3-8, bike outside 30-45 min daily [facility] Medical History Pre-op evaluation Morbid obesity Hepatosplenomegaly Adjustment disorder with depressed mood Fatty liver Anemia Diabetes Surgical History (Updated 09/12/23 @ 00:02 by Background Daemon) Hx of laparoscopic partial gastrectomy No pertinent past surgical history Family History Mother Hyperchloremia Hypertension Cancer of pancreas Father Hyperchloremia Hypertension Social History Household Members: Family Housing: House Are you a primary resident care associate to a significant other at home: No Do you presently have visiting nurse or other home services: No Alcohol intake: never Patient Tobacco Use Status: Never used Tobacco Physical Exam Vital Signs: BMI result Body Mass Index 32.5 Telehealth Telehealth Telehealth Platform: Telephone Location of provider rendering services: practice address Location of patient: address on file Patient Identification confirmed using: Name, : Yes Telehealth method: voice only Patient verbally consented to treatment: Yes Patient verbally consented to billing insurance company: Yes Patient informed of any privacy concerns related to visit: Yes Minutes spent on Phone/Video with Pt.: 15 Assessment & Plan Assessment & Plan (1) Obesity: Code(s): E66.9 - Obesity, unspecified Category: Medical Qualifiers: Obesity type: due to excess calories Obesity classification: adult class 2 (BMI 35 - 39.9) Serious obesity comorbidity presence: with serious comorbidity Body mass index: BMI 38.0-38.9 Qualified Code(s): E66.01 - Morbid (severe) obesity due to excess calories; Z68.38 - Body mass index [BMI] 38.0- 38.9, adult Plan: isopure 1/2 scoop 8-10, ZP or fit crunch 11-1 isopure 1/2 scoop in 8 oz water 2-4 meal at 5pm 6 forks protein and 6 forks veg Recommend weights then cardio at the gym. Return to clinic 6 weeks. Encouraged to text weekly with weight and with any questions or concerns.
== END 2023-11-20 11:49 | disposition home or self-care (01) ==
LOC: HO.HBS 11:49
PROVIDERS: PCP Physician Assistant; Visit Provider Physician Assistant Surgical
DX: E66.01 Morbid (severe) obesity due to excess calories (principal); Z68.38 Body mass index [BMI] 38.0-38.9, adult
CPT/HCPCS: 99024

== ENCOUNTER → 2023-11-20 11:49 | Outpatient (BNVA) | payer OTHER, SELFPAY | PROVIDERS: PCP Physician Assistant; Visit Provider Physician Assistant Surgical | DX: Z48.815 Encounter for surgical aftercare following surgery on the digestive system (principal); E66.01 Morbid (severe) obesity due to excess calories; Z68.32 Body mass index [BMI] 32.0-32.9, adult | CPT/HCPCS: 99212 ==

== ENCOUNTER 2023-12-25 08:57 | Outpatient (AMB) | payer OTHER, SELFPAY ==
--- NOTE | 2023-12-25 08:22 | MHC.OFFVISWM ---
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 Presents for 3 month post op visit. Weight today is 164.6 pounds, with a BMI of 31.1. There has been a 66.6 pound weight loss,(initial weight 231.2 pounds) since starting the program on 01/09/2023 reflecting a 28.8 % total body weight loss and a weight loss of 37.3 pounds since surgery (operative weight 201.9 pounds) reflecting a 18.4 % TBWL since surgery. No complaints of nausea, emesis, abdominal pain or reflux. Reports infrequent but normal bowel movements every 1-2 days. Taking celebrate mvi She states she is doing great and has no concerns. She states that she is not happy with her progress. She has been dealing with her mom stage 4 pancreatic cancer, starting new chemo regiment. She has had difficulty with Present meal plan includes: isopure 1/2 scoop 8-10, ZP or fit crunch 11-1 isopure 1/2 scoop in 8 oz water 2-4 meal at 5pm 6 forks protein and 6 forks veg Drinking 50-60 oz water excluding shake ? Exercise routine includes: jump rope 30-45 min every morning weight training 30 min 400-500 fletcher burn per apple watch [facility] Medical History Pre-op evaluation Morbid obesity Hepatosplenomegaly Adjustment disorder with depressed mood Fatty liver Anemia Diabetes Surgical History (Updated 09/12/23 @ 00:02 by Wolf Ortez) Hx of laparoscopic partial gastrectomy No pertinent past surgical history Family History Mother Hyperchloremia Hypertension Cancer of pancreas Father Hyperchloremia Hypertension Social History Household Members: Family Housing: House Are you a primary body care manager to a significant other at home: No Do you presently have visiting nurse or other home services: No Alcohol intake: never Patient Tobacco Use Status: Never used Tobacco Telehealth Telehealth Telehealth Platform: Telephone Location of provider rendering services: practice address Location of patient: address on file Patient Identification confirmed using: Name, : Yes Telehealth method: voice only Patient verbally consented to treatment: Yes Patient verbally consented to billing insurance company: Yes Patient informed of any privacy concerns related to visit: Yes Minutes spent on Phone/Video with Pt.: 15 Assessment & Plan Assessment & Plan (1) Obesity: Code(s): E66.9 - Obesity, unspecified Category: Medical Qualifiers: Obesity type: due to excess calories Obesity classification: adult class 2 (BMI 35 - 39.9) Serious obesity comorbidity presence: with serious comorbidity Body mass index: BMI 38.0-38.9 Qualified Code(s): E66.01 - Morbid (severe) obesity due to excess calories; Z68.38 - Body mass index [BMI] 38.0-38.9, adult Plan: Patient is satisfied with the meal plan. Recommend change her exercise plan to start with weight training, 15-20 minutes, then 45 minutes of stationary bike 4 days a week or jump rope 45 minutes 3 days a week. Additionally, add yoga twice a week not only for strength and balance but also for mental health as she is dealing with her mother's terminal cancer diagnosis. She is scheduled for follow-up in the office. Encouraged to text with any questions or concerns as well as sending her weight weekly.
[2023-12-25 08:29] VITALS: BMI 31.1
== END 2023-12-25 09:21 | disposition home or self-care (01) ==
LOC: HO.HBS 08:57
PROVIDERS: PCP Physician Assistant; Visit Provider Physician Assistant Surgical
DX: E66.01 Morbid (severe) obesity due to excess calories (principal); Z68.38 Body mass index [BMI] 38.0-38.9, adult
CPT/HCPCS: 99213

== ENCOUNTER → 2023-12-25 08:57 | Outpatient (BNVA) | payer OTHER, SELFPAY | PROVIDERS: PCP Physician Assistant; Visit Provider Physician Assistant Surgical ==

== ENCOUNTER 2024-03-24 10:46 | Outpatient (AMB) | payer OTHER, SELFPAY ==
--- NOTE | 2024-03-24 10:50 | MHC.OFFVISWM ---
VS Expanded 03/24/24 11:01 BP 155/92 H Blood Pressure Location Rt brachial Blood Pressure Position Sitting Pulse 80 Pulse Source Pulse Oximeter Temp 98.2 F Temperature Source Temporal Artery Scan Pulse Oximetry 97 Oxygen Delivery Method Room Air Height 5 ft 1 in Weight 176 lb 6.4 oz BMI 33.3 Body Fat % 28.3 Body Fat Mass 49.8 Fat Free Mass 126.6 Visceral Fat Rating 4.0 Body Water % 51.5 Body Water Mass 90.8 Muscle Mass/Score 120.2 Basal Metabolic Rate/Score 1,726 Intake Visit Reasons: (OV) PO LSG 09/03/23 Valve Assembler Required: No Allergies No Known Allergies Allergy (Verified 03/24/24 10:54) Medication List - Last Reconciled 03/24/24 by KRISTIE Palmer blood sugar diagnostic (FreeStyle Lite Strips) As directed lancets (FreeStyle Lancets) As directed HPI Comments Details: This?a?28?yo female who is s/p LSG without hiatal hernia repair on?09/03/2023. Presents for 6 month post op visit. Weight today is 176.4 pounds, with a BMI of 33.3. There has been a 66.6 pound weight loss,(initial weight 231.2 pounds) since starting the program on 01/09/2023 reflecting a 28.8 % total body weight loss and a weight loss of 37.3 pounds since surgery (operative weight 201.9 pounds) reflecting a 18.4 % TBWL since surgery. No complaints of nausea, emesis, abdominal pain or reflux. Reports infrequent but normal bowel movements every 1-2 days. Taking celebrate mvi She states she is doing great and has no concerns. She states that she is not happy with her progress. She has been dealing with her mom stage 4 pancreatic cancer, starting new chemo regiment. She has had difficulty with She is snacking a lot on chips, beef jerky sticks, eating more food than she is supposed to. She is having 1 meal and snacking Present meal plan includes: isopure 1/2 scoop 8-10, ZP or fit crunch 11-1 isopure 1/2 scoop in 8 oz water 2-4 meal at 5pm 6 forks protein and 6 forks veg Drinking 50-60 oz water excluding shake ? Exercise routine includes: gym membership at [employer] 30-45 min every morning weight training 30 min 400-500 fletcher burn per apple watch Any post op complications: none SHANTA: never DM: improved HTN: never Hyperlipidemia: never GERD:?0-5 scale ??0 = no symptoms ??1 = symptoms noticeable but not bothersome 2 =symptoms bothersome but not daily ? 3 = symptoms bothersome and daily 4 = symptoms affect daily activities 5 = symptoms are incapacitating, unable to do daily activities ? How bad is the heartburn: 0 ? Heartburn while lying down: 0 ? Heartburn when standing up: 0 ? Heartburn after meals: 0 ? Does heartburn change your diet: 0 ? Does heartburn wake you up from sleep: 0 ? Do you have difficulty swallowin ? Do you have pain with swallowin ? If you take medicine for your reflux, does this affect your daily life: 0 Satisfaction with present condition - satisfied or not satisfied: disatisfied [facility] Medical History Pre-op evaluation Morbid obesity Hepatosplenomegaly Adjustment disorder with depressed mood Fatty liver Anemia Diabetes Surgical History Hx of laparoscopic partial gastrectomy No pertinent past surgical history Family History Mother Hyperchloremia Hypertension Cancer of pancreas Father Hyperchloremia Hypertension Social History Household Members: Family Housing: House Are you a primary care management assistant to a significant other at home: No Do you presently have visiting nurse or other home services: No Alcohol intake: never Patient Tobacco Use Status: Never used Tobacco Physical Exam Const General: cooperative and no acute distress Orientation/consciousness: patient oriented x3 Resp Effort & Inspection: normal respiratory effort Auscultation: clear to auscultation bilaterally Cardio Rate: regular rate Rhythm: regular rhythm GI Inspection: Yes normal to inspection and Yes incision (well healed) Palpation (GI): Soft to palpation and no masses Neuro General: patient oriented x3 Assessment & Plan Assessment & Plan (1) S/P laparoscopic sleeve gastrectomy: Code(s): Z98.84 - Bariatric surgery status Category: Surgical Plan: Discussed with the patient the importance of following the meal plan as we had outlined before. Return to the gym, exercising daily with a goal of burning 300 calories. Check six-month postop labs. Return to clinic 1 month. Encouraged to text weight weekly and text with any questions or concerns. Orders: Orders Lipid Panel Today E11.9 - Type 2 diabetes mellitus without complications, K76.0 - Fatty (change of) liver, not elsewhere classified, Z98.84 - Bariatric surgery status Zinc Today E11.9 - Type 2 diabetes mellitus without complications, K76.0 - Fatty (change of) liver, not elsewhere classified, Z98.84 - Bariatric surgery status Ferritin Today E11.9 - Type 2 diabetes mellitus without complications, K76.0 - Fatty (change of) liver, not elsewhere classified, Z98.84 - Bariatric surgery status Basic Metabolic Panel Today E11.9 - Type 2 diabetes mellitus without complications, K76.0 - Fatty (change of) liver, not elsewhere classified, Z98.84 - Bariatric surgery status Insulin Today E11.9 - Type 2 diabetes mellitus without complications, K76.0 - Fatty (change of) liver, not elsewhere classified, Z98.84 - Bariatric surgery status Hemoglobin A1c Today E11.9 - Type 2 diabetes mellitus without complications, K76.0 - Fatty (change of) liver, not elsewhere classified, Z98.84 - Bariatric surgery status Complete Blood Count Auto Diff Today E11.9 - Type 2 diabetes mellitus without complications, K76.0 - Fatty (change of) liver, not elsewhere classified, Z98.84 - Bariatric surgery status IRON PROFILE Today E11.9 - Type 2 diabetes mellitus without complications, K76.0 - Fatty (change of) liver, not elsewhere classified, Z98.84 - Bariatric surgery status Vitamin B12 and Folate Today E11.9 - Type 2 diabetes mellitus without complications, K76.0 - Fatty (change of) liver, not elsewhere classified, Z98.84 - Bariatric surgery status C Reactive Protein Today E11.9 - Type 2 diabetes mellitus without complications, K76.0 - Fatty (change of) liver, not elsewhere classified, Z98.84 - Bariatric surgery status Vitamin B1 Today E11.9 - Type 2 diabetes mellitus without complications, K76.0 - Fatty (change of) liver, not elsewhere classified, Z98.84 - Bariatric surgery status Vitamin A Today E11.9 - Type 2 diabetes mellitus without complications, K76.0 - Fatty (change of) liver, not elsewhere classified, Z98.84 - Bariatric surgery status TSH reflex Free T4 Today E11.9 - Type 2 diabetes mellitus without complications, K76.0 - Fatty (change of) liver, not elsewhere classified, Z98.84 - Bariatric surgery status Vitamin D 25-OH Total Today E11.9 - Type 2 diabetes mellitus without complications, K76.0 - Fatty (change of) liver, not elsewhere classified, Z98.84 - Bariatric surgery status
[2024-03-24 11:01] VITALS: BP 155/92; PULSE 80; TEMP 36.8; O2SAT 97; BMI 33.3
== END 2024-03-24 11:23 | disposition home or self-care (01) ==
PROVIDERS: Visit Provider Physician Assistant Surgical
DX: E66.811 Obesity, class 1 (principal); Z68.33 Body mass index [BMI] 33.0-33.9, adult; Z90.3 Acquired absence of stomach [part of]; Z98.84 Bariatric surgery status
CPT/HCPCS: 99214; G2211

== ENCOUNTER → 2024-03-24 10:46 | Outpatient (BNVA) | payer OTHER, SELFPAY | PROVIDERS: Visit Provider Physician Assistant Surgical | DX: E66.9 Obesity, unspecified (principal); K76.0 Fatty (change of) liver, not elsewhere classified; E11.9 Type 2 diabetes mellitus without complications; Z71.3 Dietary counseling and surveillance; Z98.84 Bariatric surgery status; Z68.33 Body mass index [BMI] 33.0-33.9, adult | CPT/HCPCS: 99212 ==

== ENCOUNTER 2024-07-28 11:00 | Outpatient (AMB) | payer OTHER, SELFPAY ==
--- NOTE | 2024-07-28 07:41 | A.OFFVIS_ITS ---
VS Expanded 07/28/24 07:42 Height 5 ft 1 in Weight 193 lb 3 oz BMI 36.5 Body Fat % 45.5 Body Fat Mass 88 Fat Free Mass 105.4 Visceral Fat Rating 18 Body Water % 37.4 Body Water Mass 72.3 Muscle Mass/Score 99 Basal Metabolic Rate/Score 1,413 Intake Visit Reasons: (TV) PO LSG 09/03/23 Student Counsellor Required: No Allergies No Known Allergies Allergy (Verified 03/24/24 10:54) Medication List - Last Reconciled 07/28/24 by KRISTIE Palmer blood sugar diagnostic (FreeStyle Lite Strips) As directed lancets (FreeStyle Lancets) As directed HPI Comments Details: This?a?29?yo female who is s/p LSG without hiatal hernia repair on?09/03/2023. Presents for 11 month post op visit. Weight today is 193.3 pounds, with a BMI of 36.5. There has been a 37.9 pound weight loss,(initial weight 231.2 pounds) since starting the program on 01/09/2023 reflecting a 16.3 % total body weight loss and a weight loss of 8.6 pounds since surgery (operative weight 201.9 pounds) reflecting a 4.2 % TBWL since surgery. No complaints of nausea, emesis, abdominal pain or reflux. Reports infrequent but normal bowel movements every 1- 2 days. Taking celebrate mvi She states she had a very difficult time with the passing of her mother 05/04/24. 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 She feels she is coming out of the slump. She is realizing over the past week or two how her lack of engagement affected her weight. She states that she would like to return to a structured meal plan as she has been up been using a structured meal plan and she would like to use shakes and bars exclusively previous meal plan includes: isopure 1/2 scoop 8-10, fit crunch 11-1 isopure 1/2 scoop in 8 oz water 2-4 meal at 5pm 6 forks protein and 6 forks veg Drinking 50-60 oz water excluding shake ? Exercise routine includes: none gym membership at [facility] Medical History Pre-op evaluation Morbid obesity Hepatosplenomegaly Adjustment disorder with depressed mood Fatty liver Anemia Diabetes Surgical History Hx of laparoscopic partial gastrectomy No pertinent past surgical history Family History Mother Hyperchloremia Hypertension Cancer of pancreas Father Hyperchloremia Hypertension Social History Household Members: Family Housing: House Are you a primary healthcare applications analyst to a significant other at home: No Do you presently have visiting nurse or other home services: No Alcohol intake: never Patient Tobacco Use Status: Never used Tobacco Telehealth Telehealth Telehealth Platform: Telephone Location of provider rendering services: practice address Location of patient: address on file Patient Identification confirmed using: Name, : Yes Telehealth method: voice only Patient verbally consented to treatment: Yes Patient verbally consented to billing insurance company: Yes Patient informed of any privacy concerns related to visit: Yes Minutes spent on Phone/Video with Pt.: 15 Assessment & Plan Assessment & Plan (1) S/P laparoscopic sleeve gastrectomy: Code(s): Z98.84 - Bariatric surgery status Category: Surgical Plan: Patient has had significant weight regain in the setting of depression and dietary indiscretion due to the of her mother in May. She has now emerged from her slump, per her report, and wishes to return to a dedicated and structured program. She does not wish to include food at this time. isopure 1 scoop in 10 oz water8-10, fit crunch 11-1 isopure 1/2 scoop in 10 oz water 2-4 5pm isopure shake 1/2 scoop in 10 oz water Encouraged to go to the gym, 6 days a week, burning 400 calories or more per session. She certainly may go 7 days a week if she is able. Additionally discussed adding 30 minutes of yoga if she is able. She was encouraged to send weight is weekly by text and text if any questions or concerns. We will have her return to the office in approximately 5 weeks.
[2024-07-28 07:42] VITALS: BMI 36.5
--- OUTSIDE RECORDS SUMMARY | 2024-07-28 13:40 | XMS_ITS | Encounter Summary ---
Author Organization [employer] Address [address] [facility] [address] [place] [address] Care Team Providers Care Hoist Worker Name Role Phone Unavailable Primary Care Provider Unavailabl e Encounter Details Date Type Department Care Team (Late st Contact Info) Description 06/30/2024 Telephone [facility] [address] [place] [address] William Vasques MD [address] [place], [place] [phone] Social History Tobacco Use Types Packs/Day Years Used Date Smoking Tobacco: Never Assessed Comments Unknown Sex and Gender Information Value Date Recorded Sex Assigned at Female 01/04/2024 9:27 AM EDT Legal Sex Female 9:26 AM EDT Gender Identity Female 01/04/2024 9:27 AM EDT Sexual Orientation Don't know 01/04/2024 9: 29 AM EDT documented as of this encounter Miscellaneous Notes * Telephone Encounter - Marely Joseph - 06/30/2024 11:27 AM EST Outgoing call to pt to book SPOOL TENDER appt. No answer. Left Message. ( Needs to switch Ins plan to C3 ) documented in this encounter Plan of Treatment Not on file documented as of this encounter Visit Diagnoses Not on filedocumented in this encounter
--- OUTSIDE RECORDS SUMMARY | 2024-07-28 13:40 | XMS_ITS | Clinical Summary ---
Author Organization [employer] Address [address] [facility] [address] [place] [address] Care Team Providers Care Insulation Worker Name Role Phone Unavailable Primary Care Provider Unavailabl e Encounters Date Type Department Care Team Description 06/30/2024 Telephone [facility] MED[facility]INE [address] [place] [phone] William Vasques MD 06/30/2024 Telephone [facility] [address] [place], [place] [phone] William Vasques MD from Last 3 Months Social History Tobacco Use Types Packs/Day Years Used Date Smoking Tobacco: Never Assessed Comments Unknown Sex and Gender Information Value Date Recorded Sex Assigned at Female 01/04/2024 9:27 AM EDT Legal Sex Female 9:26 AM EDT Gender Identity Female 01/04/2024 9:27 AM EDT Sexual Orientation Don't know 01/04/2024 9: 29 AM EDT Plan of Treatment Health Maintenance Due Date Last Done Comments Depression Screening 1996 HIV Screening 1996 Lipid Panel 1996 SDOH Screening 1996 Alcohol/Substance Use Screening 2008 Tobacco Screening 2008 Family Planning (PISQ) 2011 Hepatitis C Screening 2014 DTaP/Tdap/Td Vaccines (1 - Tdap) 2015 Hepatitis B Vaccines (1 of 3 - 19+ 3-dose series) 2015 Pap Smear 2017 COVID-19 Vaccine (1 - 2023-2 5 season) 2024 Influenza Vaccine (#1) 2024 Zoster Vaccines (1 of 2) 2046 RSV Patients and Pa tients Aged 60 years or older (1 - 1-dose 75+ series) 2071 HIB Vaccines Aged Out No longer eligi ble based on patient's age to complete this topic HPV Vaccines Aged Out No longer eligi ble based on patient's age to complete this topic Hepatitis A Vaccines Aged Out No long er eligible based on patient's age to complete this topic IPV Vaccines Aged Out No longer eligi ble based on patient's age to complete this topic Meningococcal Vaccine Aged Out No [place] abhishek eligible based on patient's age to complete this topic Pneumococcal Vaccine: Pediat rics (0 to 5 Years) and At-Risk Patients (6 to 49) Years) Aged Out No longer eligible b ased on patient's age to complete this topic RSV under 20 months Aged Out No longe r eligible based on patient's age to complete this topic Rotavirus Vaccines Aged Out No longer eligible based on patient's age to complete this topic Insurance [facility]
--- OUTSIDE RECORDS SUMMARY | 2024-07-28 13:40 | XMS_ITS | Encounter Summary ---
Author Organization [employer] Address [address] [facility] [address] [place] [address] Care Team Providers Care Furnace Utility Operator Name Role Phone Unavailable Primary Care Provider Unavailabl e Encounter Details Date Type Department Care Team (Late st Contact Info) Description 06/30/2024 Telephone [facility] [address] [place] [phone] William Vasques MD [address] [place], [place] [phone] Social History Tobacco Use Types Packs/Day Years [...] Telephone Encounter - Marely Joseph - 06/30/2024 3:42 PM EST Outgoing call to pt to book GENERAL FARM HAND appt. No answer. Left Message. ( Needs to switch Ins plan to C3 ) documented in this encounter Plan of Treatment Not on file documented as of this encounter Visit Diagnoses Not on filedocumented in this encounter
== END 2024-07-28 11:19 | disposition home or self-care (01) ==
LOC: HO.HBS 11:17
PROVIDERS: Visit Provider Physician Assistant Surgical
DX: E66.812 Obesity, class 2 (principal); Z68.36 Body mass index [BMI] 36.0-36.9, adult; Z90.3 Acquired absence of stomach [part of]; Z98.84 Bariatric surgery status
CPT/HCPCS: 99213; G2211